=== PATIENT | male | born 1945 | race Caucasian/White ===

== ENCOUNTER → 2017-09-24 09:27 | Outpatient (CLI) | payer OTHER, SELFPAY ==
[2017-09-24 11:21] LABS: Prostate Specific Antigen < 0.064 ng/mL (0.10-4.00)
== END ==
PROVIDERS: Family Provider Family Medicine; PCP Family Medicine; Visit Provider Student in an Organized Health Care Education/Training Program
DX: C61 Malignant neoplasm of prostate (principal)
CPT/HCPCS: 36415; 84153

== ENCOUNTER → 2017-12-29 09:15 | Outpatient (CLI) | payer OTHER, SELFPAY ==
[2017-12-29 10:41] LABS: Prostate Specific Antigen < 0.064 ng/mL (0.10-4.00)
== END ==
PROVIDERS: PCP Family Medicine; Visit Provider Student in an Organized Health Care Education/Training Program
DX: C61 Malignant neoplasm of prostate (principal)
CPT/HCPCS: 36415; 84153

== ENCOUNTER → 2018-04-01 09:06 | Outpatient (CLI) | payer OTHER, SELFPAY ==
[2018-04-01 10:20] LABS: Prostate Specific Antigen < 0.064 ng/mL (0.10-4.00)
== END ==
PROVIDERS: Family Provider Student in an Organized Health Care Education/Training Program; PCP Student in an Organized Health Care Education/Training Program; Visit Provider Student in an Organized Health Care Education/Training Program
DX: C61 Malignant neoplasm of prostate (principal)
CPT/HCPCS: 36415; 84153

== ENCOUNTER 2018-05-06 11:55 | Day surgery (SDC) | payer OTHER, SELFPAY ==
[2018-05-04 11:55] VITALS: BMI 26.1
[2018-05-06 12:07] VITALS: BP 134/81; PULSE 71; RESP 16; TEMP 37.1; O2SAT 99; BMI 26.1
[2018-05-06] MEDS: LACTATED RINGERS 1,000 ML 42 ML IV (13:28)
[2018-05-06] MEDS: CEFAZOLIN 2 GM/100 ML FROZ.PIGGY IV (13:40)
--- NOTE | 2018-05-06 14:03 | SUR.OPER ---
Supine on padded OR bed, head on pillow, arms secured on padded arm boards at <90 degrees abduction, legs uncrossed, safety belt at thigh, tape over blanket over lower legs.
[2018-05-06] MEDS: LIDOCAINE 1% W/EPI INJ 20 ML INJ (14:17)
[2018-05-06] MEDS: BUPIVACAINE 0.5% (PF) VIAL 30 ML INJ (14:19)
[2018-05-06] MEDS: CEFAZOLIN 1 GM VIAL IV (14:23)
[2018-05-06 15:17] VITALS: BP 123/68; PULSE 77; RESP 14; TEMP 36.9; O2SAT 97
[2018-05-06 15:22] VITALS: BP 123/64; PULSE 74; RESP 20; TEMP 36.9; O2SAT 97
[2018-05-06 15:27] VITALS: BP 120/60; PULSE 73; RESP 16; TEMP 36.9; O2SAT 98
--- NOTE | 2018-05-06 15:29 | PM.OP.1 ---
Operative Date/Time/Diagnoses Date of procedure: 05/06/18 Time of procedure: 15:29 Pre-op diagnosis: Recurrent right inguinal hernia and new left inguinal hernia Post-op diagnosis: same Procedure & Clinicians Procedure: Repair of recurrent right inguinal hernia and new left inguinal hernia Same procedure as scheduled: Yes Surgeon: Marilu Campa Anesthesia Type: General (Dr. Hammer) and Local Operative Notes Findings: 1. Existing right inguinal hernia meshes densely adherent to and tangled with the right spermatic cord. It is loose laterally leaving a 1 cm opening through which he is herniating. 2. Moderate indirect inguinal hernia Closure Type: primary Implants & Drains: 1. Pro Loop plug in the right inguinal hernia 2. PHS hernia system implant-large size-in the left inguinal hernia Estimated Blood Loss (mL): 10 Procedure in detail: After obtaining informed consent, the patient brought to the operating room and placed in supine position on the operating table. Following successful induction of general endotracheal anesthesia, appropriate padding of all bony prominences, placement of appropriate monitors, the abdomen is prepped and draped in the standard surgical fashion a time-out was held per [facility] protocol. We began the procedure by addressing hernia on the right side. An ilioinguinal nerve block was undertaken 1st by injecting a mixture local anesthetics just medial to the anterior superior iliac spine. We then applied local anesthetic to the existing right lower quadrant incision. This was reopened and carried down through the skin and subcutaneous tissue to reveal the fascia of the external oblique aponeurosis. The aponeurosis was opened in the direction of its fibers revealing the underlying mesh and spermatic cord. The overlying leaflet of the mesh was densely adherent to the external oblique aponeurosis but not adherent to the underlying structures. It was actually stuck to only the lateral leaflet of the aponeurosis. Looking laterally into the inguinal canal at the internal ring, the plug placed 2 years ago was densely adherent to and intimately combined with the spermatic cord. It had come loose from its lateral attachment and was sort of bobbing up and down sewn medially only to the transversalis fascia. This left a and opening of approximately 1 cm laterally. I elected to not try to remove the mesh for fear of causing of the right testicle. I used a medium Prolene hernia System plug. It was soaked in Ancef containing solution and deployed into the defect. This plug was sewn into place to the existing plug and then laterally and inferiorly as well. The overlying leaflet of the existing mesh was then sewn to the transversalis fascia medially. The aponeurosis was then closed with running locking Vicryl suture. Rick's fascia was closed in the same manner and Monocryl was used in the skin. The wound was cleaned and then covered with Exofen. We now turned our attention to the left side. We began the procedure by infiltrating a mixture of local anesthetics medial to the anterior superior iliac spine on the left. Following this, an incision was fashioned in the left groin superior and lateral to the left pubic tubercle. This area was infiltrated with local anesthetic to create a field block. A skin incision was created here and carried down through the skin and subcutaneous tissue to reveal Rick's fascia below. Rick's fascia was divided sharply revealing the external oblique aponeurosis below. More local anesthetic was infiltrated in the aponeurosis and it was opened in the direction of its fibers. The spermatic cord and its contents were surrounded and retracted gently using a Tahir drain. The hernia sac was identified in the superior medial position and carefully dissected free from the cord structures. This was a sliding hernia. We elected to repair this hernia using the Prolene hernia system. A large portion of mesh was chosen and dipped in Ancef containing solution. This placed into the defect per manufacture's directions into the internal inguinal ring. The anterior leaflet was then opened and sewn to the pubic tubercle medially and tucked under the aponeurosis of the external oblique muscle laterally. The wound was then checked for hemostasis and irrigated with Ancef containing solution. The aponeurosis was then closed with running Vicryl suture Rick's fascia was closed Monocryl was placed in the skin. All sponge, needle, and instrument counts were correct at the conclusion the case. The patient was allowed to wake from anesthesia without difficulty and taken to the postanesthesia care unit in good condition.
[2018-05-06 15:32] VITALS: BP 116/71; PULSE 72; RESP 16; TEMP 36.9; O2SAT 98
[2018-05-06 16:00] VITALS: BP 122/65; PULSE 74; RESP 18; TEMP 36.6; O2SAT 96
== END 2018-05-06 16:05 | disposition home or self-care (01) ==
PROVIDERS: Family Provider Student in an Organized Health Care Education/Training Program; PCP Student in an Organized Health Care Education/Training Program; Visit Provider Surgery
PROC: (CPT 49520; principal; 2018-05-06 13:15)
DX: K40.91 Unilateral inguinal hernia, without obstruction or gangrene, recurrent (principal); K40.90 Unilateral inguinal hernia, without obstruction or gangrene, not specified as recurrent; E78.5 Hyperlipidemia, unspecified; I10 Essential (primary) hypertension
CPT/HCPCS: 49520; 49505; C1781; J0690; J2405; J2704; J3010

== ENCOUNTER → 2018-06-29 09:36 | Outpatient (CLI) | payer OTHER, SELFPAY ==
[2018-06-29 12:16] LABS: Prostate Specific Antigen < 0.064 ng/mL (0.10-4.00)
== END ==
PROVIDERS: Family Provider Student in an Organized Health Care Education/Training Program; PCP Student in an Organized Health Care Education/Training Program; Visit Provider Student in an Organized Health Care Education/Training Program
DX: C61 Malignant neoplasm of prostate (principal)
CPT/HCPCS: 84153

== ENCOUNTER → 2019-01-06 07:07 | Outpatient (CLI) | payer OTHER, SELFPAY ==
[2019-01-06 09:55] LABS: Prostate Specific Antigen < 0.064 ng/mL (0.10-4.00)
== END ==
PROVIDERS: Family Provider Student in an Organized Health Care Education/Training Program; PCP Student in an Organized Health Care Education/Training Program; Visit Provider Student in an Organized Health Care Education/Training Program
DX: C61 Malignant neoplasm of prostate (principal)
CPT/HCPCS: 36415; 84153

== ENCOUNTER → 2019-01-14 11:05 | Outpatient (CLI) | payer OTHER, SELFPAY ==
[2019-01-14 12:11] LABS: BUN Creatinine Ratio 18.9 (6-22); Blood Urea Nitrogen 17 mg/dL (9-20); Estimated Glomerular Filt Rate > 60.0 mL/min (>60)
== END ==
PROVIDERS: Family Provider Student in an Organized Health Care Education/Training Program; PCP Student in an Organized Health Care Education/Training Program; Visit Provider Student in an Organized Health Care Education/Training Program
DX: R31.0 Gross hematuria (principal)
CPT/HCPCS: 36415; 82565; 84520

== ENCOUNTER → 2019-01-15 13:04 | Outpatient (CLI) | payer OTHER, SELFPAY ==
--- NOTE | 2019-01-15 13:35 | DI.CT.S_ITS ---
PROCEDURE: CT ABDOMEN PELVIS WO/W CON INDICATIONS: hematuria TECHNIQUE: Optional 5 mm thick noncontrast images acquired from the diaphragm to the symphysis pubis. After the administration of intravenous contrast, 5 mm thick images acquired from the diaphragm to the symphysis pubis after a 10-minute delay. 2 mm thick coronal and sagittal reformats were then performed of the kidneys and ureters. For radiation dose reduction, the following was used: automated exposure control, adjustment of mA and/or kV according to patient size. COMPARISON: None. FINDINGS: Image quality: Excellent. Lung bases: Lung bases are clear. Heart size is normal. Urinary system: Punctate pair of left renal calculi measuring up to 1 mm. No right renal calculi identified. No perinephric fat stranding. There is normal bilateral renal enhancement. Renal calyces appear normal in morphology when filled with contrast. Opacified portions of both ureters demonstrate normal caliber. There is only partial contrast opacification of the bladder. No calcified bladder stones. Numerous bilateral pelvic phleboliths in the region of the distal ureters. Other solid organs: Scattered hepatic hypodensities, subcentimeter in size too small to characterize accurately although statistically represent cysts or hemangiomas. Gallbladder contains layering sub-5 mm gallstones without other CT evidence of acute cholecystitis. Biliary system is non dilated. Pancreas enhances normally. Spleen is normal in size and enhancement. No adrenal nodules. Peritoneum and bowel: Bowel loops demonstrate normal wall thickness and caliber. No free fluid or air. Colonic diverticulosis. Nodes and vessels: No retroperitoneal or mesenteric adenopathy by size criteria. Aorta and inferior vena cava are normal in size. Abdominal wall: No ventral hernias. Pelvis: No pathologic free pelvic fluid. No inguinal hernias or adenopathy. Bones: No suspicious bony lesions. No vertebral body compression fractures. Grade 1 anterolisthesis of L4 on L5. Mild anterior wedging of the midthoracic vertebral bodies IMPRESSION: Multiple punctate left renal calculi without evidence of urinary obstruction. No right urolithiasis. Cholelithiasis incidentally noted. Elsewhere, no acute process seen. Dictated by: Joel Downing M.D. on 01/15/2019 at 14:49 Approved by: Joel Downing M.D. on 01/15/2019 at 15:06
== END ==
PROVIDERS: Family Provider Student in an Organized Health Care Education/Training Program; PCP Student in an Organized Health Care Education/Training Program; Visit Provider Student in an Organized Health Care Education/Training Program
DX: R31.9 Hematuria, unspecified (principal); N20.0 Calculus of kidney; K80.20 Calculus of gallbladder without cholecystitis without obstruction
CPT/HCPCS: 74178; Q9967

== ENCOUNTER → 2019-04-22 09:48 | Outpatient (CLI) | payer OTHER, SELFPAY ==
[2019-04-24 12:40] LABS: Fecal Immunochemical Test NOT DETECTED (NOT DETECTED)
== END ==
PROVIDERS: PCP Student in an Organized Health Care Education/Training Program; Visit Provider Student in an Organized Health Care Education/Training Program
DX: Z12.11 Encounter for screening for malignant neoplasm of colon (principal); Z86.010 Personal history of colon polyps
CPT/HCPCS: 82274

== ENCOUNTER → 2019-06-24 10:32 | Outpatient (CLI) | payer OTHER, SELFPAY ==
[2019-06-28 15:34] LABS: PSA, Total < 0.1 ng/mL (< 4.1)
== END ==
PROVIDERS: PCP Student in an Organized Health Care Education/Training Program; Referring Provider Student in an Organized Health Care Education/Training Program; Visit Provider Student in an Organized Health Care Education/Training Program
DX: C61 Malignant neoplasm of prostate (principal)
CPT/HCPCS: 36415; 84153; 84154

== ENCOUNTER → 2019-10-25 11:02 | Outpatient (CLI) | payer OTHER, SELFPAY ==
--- NOTE | 2019-10-25 | DI.MRI.S_ITS ---
PROCEDURE: MR PELIS WO/W CON INDICATIONS: Malignant neoplasm of prostate, prior prostatectomy TECHNIQUE: Noncontrast coronal T1 spin echo and STIR, sagittal T1 spin echo with fat saturation and STIR, axial T1 spin echo and T2 fast spin echo with fat saturation. After the administration of contrast, axial/sagittal/coronal T1 spin echo with fat saturation through the pelvis. COMPARISON: [facility], CT, CT ABDOMEN PELVIS WO/W CON, 01/15/2019, 13:14. FINDINGS: Image quality: Excellent. Bones: The visualized bone marrow demonstrates normal signal on all sequences except at the medial left iliac bone posteriorly, abutting the sacroiliac joint, where an area of relatively sharply demarcated signal abnormality is seen measuring up to 1.5 cm transverse, 2.2 cm craniocaudad and approximately 2.1 cm AP. The this is worrisome for representing osseous metastatic disease. The overlying cortex appears intact. No abnormal intraosseous enhancement. Soft tissues: No soft tissue masses are visualized. The scanned muscles demonstrate normal overall bulk and internal signal. Subcutaneous tissues appear normal as well. No abnormal soft tissue enhancement. IMPRESSION: Prior prostatectomy. No adenopathy seen. Suspicious lesion measuring up to 1.5 x 2.2 x 2.1 cm within the medial aspect of the left iliac bone posteriorly, abutting the sacroiliac joint. Nuclear medicine bone scan is recommended if this has not recently been obtained. Dictated by: Chapin Krishnan M.D. on 10/25/2019 at 13:01 Approved by: Chapin Krishnan M.D. on 10/25/2019 at 13:25
== END ==
PROVIDERS: PCP Student in an Organized Health Care Education/Training Program; Referring Provider Student in an Organized Health Care Education/Training Program; Visit Provider Student in an Organized Health Care Education/Training Program
DX: C61 Malignant neoplasm of prostate (principal); M89.9 Disorder of bone, unspecified
CPT/HCPCS: 72197

== ENCOUNTER → 2019-11-11 10:01 | Outpatient (CLI) | payer OTHER, SELFPAY ==
--- NOTE | 2019-11-11 | DI.NM.S_ITS ---
PROCEDURE: NM BONE SCAN WHOLE BODY RADIOPHARMACEUTICAL: 21.5 mCi Tc-99m MDP IV. INDICATIONS: Malignant neoplasm of prostate TECHNIQUE: Delayed whole-body scintigrams were obtained approximately 3-4 hours after intravenous injection of radiotracer. Anterior and posterior views were acquired from vertex to feet. Additional left and right oblique views of the lower spine and pelvis were obtained. COMPARISON: [facility], MR, MR PELVIS WO/W CON, 10/25/2019, 11:25. [facility], CT, CT ABDOMEN PELVIS WO/W CON, 01/15/2019, 13:14. FINDINGS: The relatively subtle marrow space heterogeneity seen on recent MR scanning 10/25/19 within the pelvis is not detectable as a manifestation of abnormal bone scan isotope deposition, including targeted oblique imaging optimized for pelvis evaluation. Note is made of low cervical, thoracic, lumbosacral and bilateral sacroiliac joint degenerative osteoarthritic change. Note also is made of asymmetric right greater than left shoulder joint isotope deposition. 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 IMPRESSION: No active metastatic disease is currently found by bone scan imaging. Degenerative changes are present, as noted. Dictated by: Chapin Krishnan M.D. on 11/11/2019 at 15:12 Approved by: Chapin Krishnan M.D. on 11/11/2019 at 15:19
== END ==
PROVIDERS: PCP Student in an Organized Health Care Education/Training Program; Referring Provider Student in an Organized Health Care Education/Training Program; Visit Provider Student in an Organized Health Care Education/Training Program
DX: C61 Malignant neoplasm of prostate (principal); M16.0 Bilateral primary osteoarthritis of hip
CPT/HCPCS: 78306; A9503

== ENCOUNTER → 2020-02-15 07:43 | Outpatient (CLI) | payer OTHER, SELFPAY ==
[2020-02-15 10:02] LABS: Prostate Specific Antigen < 0.064 ng/mL (0.10-4.00)
== END ==
PROVIDERS: PCP Student in an Organized Health Care Education/Training Program; Referring Provider Student in an Organized Health Care Education/Training Program; Visit Provider Student in an Organized Health Care Education/Training Program
DX: C61 Malignant neoplasm of prostate (principal)
CPT/HCPCS: 36415; 84153

== ENCOUNTER → 2020-04-25 13:48 | Outpatient (CLI) | payer OTHER, SELFPAY ==
[2020-04-25 15:31] LABS: Alanine Aminotransferase 23 IU/L (<50); Albumin 3.9 g/dL (3.5-5.0); Albumin Globulin Ratio 1.6 (1.0-2.8); Alkaline Phosphatase 64 U/L (38-126); Aspartate Aminotransferase 34 IU/L (17-59); BUN Creatinine Ratio 21.2 (6-22); Bilirubin Total 0.3 mg/dL (0.2-1.3); Bilirubin Unconjugated 0.4 mg/dL (0.0-1.1); Blood Urea Nitrogen 18 mg/dL (9-20); Calcium 9.2 mg/dL (8.4-10.2); Carbon Dioxide 30 mmol/L (22-32); Chloride 105 mmol/L (98-107); Estimated Glomerular Filt Rate > 60.0 mL/min (>60); Globulin 2.4 g/dL (1.7-4.1); Glucose 88 mg/dL (80-110); HEMOLYSIS < 15 (0-50); Potassium 4.2 mmol/L (3.4-5.1); Sodium 139 mmol/L (137-145); Total Protein 6.3 g/dL (6.3-8.2)
== END ==
PROVIDERS: PCP Student in an Organized Health Care Education/Training Program; Referring Provider Student in an Organized Health Care Education/Training Program; Visit Provider Student in an Organized Health Care Education/Training Program
DX: E78.2 Mixed hyperlipidemia (principal); I10 Essential (primary) hypertension; Z79.899 Other long term (current) drug therapy
CPT/HCPCS: 36415; 80048; 80076

== ENCOUNTER → 2020-05-16 17:32 | Outpatient (CLI) | payer MEDICARE, SELFPAY ==
[2020-05-16] MEDS: COVID-19 VACC #1, MRNA(MOD) 100 MCG/0.5 ML VIAL IM (18:03)
== END ==
PROVIDERS: PCP Student in an Organized Health Care Education/Training Program; Visit Provider Internal Medicine
DX: Z23 Encounter for immunization (principal)
CPT/HCPCS: 0011A; 91301

== ENCOUNTER → 2020-06-14 12:23 | Outpatient (CLI) | payer MEDICARE, SELFPAY ==
[2020-06-14] MEDS: COVID-19 VACC #2, MRNA(MOD) 100 MCG/0.5 ML VIAL IM (12:33)
== END ==
PROVIDERS: PCP Student in an Organized Health Care Education/Training Program; Visit Provider Internal Medicine
DX: Z23 Encounter for immunization (principal)
CPT/HCPCS: 0012A; 91301

== ENCOUNTER → 2020-09-19 08:57 | Outpatient (CLI) | payer OTHER, SELFPAY ==
[2020-09-19 10:55] LABS: Prostate Specific Antigen < 0.064 ng/mL (0.10-4.00)
== END ==
PROVIDERS: PCP Student in an Organized Health Care Education/Training Program; Referring Provider Student in an Organized Health Care Education/Training Program; Visit Provider Student in an Organized Health Care Education/Training Program
DX: C61 Malignant neoplasm of prostate (principal)
CPT/HCPCS: 36415; 84153

== ENCOUNTER → 2021-04-23 07:03 | Outpatient (CLI) | payer OTHER, SELFPAY ==
[2021-04-23 09:53] LABS: Prostate Specific Antigen < 0.064 ng/mL (0.10-4.00)
== END ==
PROVIDERS: PCP Student in an Organized Health Care Education/Training Program; Referring Provider Student in an Organized Health Care Education/Training Program; Visit Provider Student in an Organized Health Care Education/Training Program
DX: C61 Malignant neoplasm of prostate (principal)
CPT/HCPCS: 36415; 84153

== ENCOUNTER → 2021-05-08 11:03 | Outpatient (CLI) | payer OTHER, SELFPAY ==
[2021-05-08 12:32] LABS: BUN Creatinine Ratio 16.7 (6-22); Blood Urea Nitrogen 16 mg/dL (9-20); Calcium 9.8 mg/dL (8.4-10.2); Carbon Dioxide 30 mmol/L (22-32); Chloride 103 mmol/L (98-107); Cholesterol 166 mg/dL (140-199); Estimated Glomerular Filt Rate > 60.0 mL/min (>60); Glucose 87 mg/dL (80-110); HDL Cholesterol 55 mg/dL (40-60); HEMOLYSIS < 15 (0-50); LDL Cholesterol Calculated 83 mg/dL (<100); Potassium 4.4 mmol/L (3.4-5.1); Sodium 141 mmol/L (137-145); Triglycerides 139 mg/dL (35-150)
[2021-05-08 15:09] LABS: Vitamin D 25 Hydroxy (D3) 43.4 ng/mL (30.0-100.0)
== END ==
PROVIDERS: PCP Student in an Organized Health Care Education/Training Program; Referring Provider Student in an Organized Health Care Education/Training Program; Visit Provider Student in an Organized Health Care Education/Training Program
DX: I10 Essential (primary) hypertension (principal); E78.2 Mixed hyperlipidemia
CPT/HCPCS: 36415; 80048; 80061; 82306

== ENCOUNTER → 2021-12-11 16:16 | Outpatient (CLI) | payer OTHER, SELFPAY ==
--- NOTE | 2021-12-11 16:19 | DI.RAD.S_ITS ---
PROCEDURE: XR LUMBAR SPINE 2-3V INDICATIONS: Low back pain TECHNIQUE: 3 views of the lumbar spine were acquired. COMPARISON: [facility], , L-SPINE 2-3 VIEWS, 02/09/2009, 10:37. FINDINGS: Bones: 5 [id number] vertebrae are present. 4 mm retrolisthesis L2-L3 and 4 mm spondylolisthesis L4-L5. Multilevel disc degeneration, moderate to severe at the L4-L5 and severe at the L5-S1 level. Moderate L4-L5 and L5-S1 facet joint arthropathy.. No vertebral body compression fractures. No suspicious bony lesions. Soft tissues: Overlying bowel gas pattern is normal. No suspicious soft tissue calcifications. IMPRESSION: Multilevel lumbar spine spondylosis which has progressed compared to the prior examination. Dictated by: Mike Kirby Amaya Interpreted: Dao Julian MD on 12/11/2021 at 17:03 Transcribed by: CARLOS on 12/11/2021 at 17:05 Approved by: Dao Julian M.D. on 12/11/2021 at 21:03
== END ==
PROVIDERS: PCP Student in an Organized Health Care Education/Training Program; Referring Provider Student in an Organized Health Care Education/Training Program; Visit Provider Student in an Organized Health Care Education/Training Program
DX: M47.816 Spondylosis without myelopathy or radiculopathy, lumbar region (principal); M47.817 Spondylosis without myelopathy or radiculopathy, lumbosacral region; M54.50 Low back pain, unspecified; G89.29 Other chronic pain
CPT/HCPCS: 72100

== ENCOUNTER 2022-02-01 14:30 | Outpatient (RCR) | payer OTHER, SELFPAY ==
--- NOTE | 2022-01-24 12:03 | PT.OIE ---
Current Diagnoses Other chronic pain (01/24/22) Low back pain, unspecified (01/24/22) Past Medical History (Last Reviewed 08/17/21 @ 11:42 by Deb Gonzalez PA-C) Arthritis Cataract Chicken pox Colon polyps Hayfever Hearing loss Hemorrhoids History of colonic polyps (02/14/15) History of inguinal hernia (08/13/16) Hyperlipidemia Hypertension IBS (irritable bowel syndrome) Measles Mumps Prostate cancer (05/30/17) Recurrent sinusitis Past Surgical History (Last Reviewed 08/17/21 @ 11:42 by Deb Gonzalez PA-C) Anesthesia History of colonoscopy (12/23/14) History of colonoscopy with polypectomy (09/22/09) History of prostate biopsy (05/30/17) History of right inguinal hernia repair (09/06/15) History of robot-assisted laparoscopic radical prostatectomy (08/12/17) History of tonsillectomy (~1949) Status post cataract extraction of both eyes with insertion of intraocular lens Status post eye surgery (~2009) Status post hemorrhoidectomy (1975) Visit Care Team Role Provider Type Sammy Erickson MD Attending Provider Physician Family Provider Primary Care Provider Referring Provider Specialty: Internal Medicine Address: [address] [place] [address], [address], [facility] Email: [email or web address] Physical Therapy Initial Evaluation PT-OP-A Visit Information Start: 01/24/22 11:25 Freq: Status: Active Protocol: Document 01/24/22 10:30 DCW (Rec: 01/24/22 11:37 DCW [id number]) Out-Patient Physical Therapy Visit Information Visit Information Visit Type Initial Evaluation Visit Start Time 10:30 Visit Stop Time 11:18 Total Visit Minutes 48 Visit Number 1 Number of SPECIALIST MANAGERS Visits 0 Evaluation Information Evaluation Date 01/24/22 PT-OP-B Current Condition Start: 01/24/22 11:25 Freq: Status: Active Protocol: Document 01/24/22 10:30 DCW (Rec: 01/24/22 11:50 DCW [id number]) Current Condition History of Current Condition Onset Date Several year history Current Complaints Constant low back pain, worse with lifting History of Current Condition Pt is a 77 year old male with a long-standing history of fairly constant low back pain. Pt reports he has aching daily, worse in the morning or after inactivity, feels better after getting up and moving around more. Is typically manageable, but will occasionally have instances where it is worse and he is unable to do much for a few days, the worst, and most recent example, being a few months ago when he purchased an inflatable kayak and was moving the 40 pound box around his garage. Ended up in enough pain that two weeks later he went to see his PCP. Received an x-ray and a referral to PT. Since that time, that specific pain has diminished, but he is still struggling with his normal pain. Reports left is typically worse than right, but it can change. No radicular pain into his hips or back. Does have a history of three hernias/repairs, which has limited his ability to strengthen his core in the past. Reports he walks 1.5-2 miles 5x/week, as well as an UE strengthening routine 3x/ week and balance training 3x/ week. Prior Treatments and Tests Lumbar x-ray: IMPRESSION: Multilevel lumbar spine spondylosis which has progressed compared to the prior examination. Dictated by: Mike Kirby [facility] Interpreted: Dao Julian MD on 12/11/2021 Treatment Goals Patient/Caregiver Goals To make this back pain go away. PT-OP-C Subjective Start: 01/24/22 11:25 Freq: Status: Active Protocol: Document 01/24/22 10:30 DCW (Rec: 01/24/22 11:50 DCW [id number]) OP-PT Subjective Patient Comments Patient Comments If I didn't wake up with pain , I'd assume I had . PT-OP-F Manual Assessment Start: 01/24/22 11:25 Freq: Status: Active Protocol: Document 01/24/22 10:30 DCW (Rec: 01/24/22 11:37 DCW [id number]) Manual Assessments Soft Tissue Assessment Soft Tissue Mobility Assessment Minimal soft tissue tone throughout lumbar back, no noted pain or discomfort with palpation PT-OP-K Range of Motion Start: 01/24/22 11:25 Freq: Status: Active Protocol: Document 01/24/22 10:30 DCW (Rec: 01/24/22 11:37 DCW [id number]) Lumbar Spine Range of Motion Lumbar Spine Active Degrees Testing Position Standing Flexion 43 Extension 5 Lateral Flexion Left 55 Lateral Flexion Right 55 ROM Limitations Pain Comments Lateral flexion measured in cm from fingertips to floor PT-OP-L Special Tests Start: 01/24/22 11:25 Freq: Status: Active Protocol: Document 01/24/22 10:30 DCW (Rec: 01/24/22 11:37 DCW [id number]) Special Tests Lumbar Spine Special Tests Vertical Spine Loading Test Results Negative MARY ANN Test Results Positive left ipsilateral pain Straight Leg Raise Test Results Positive left ipsilateral pain Standing Flexion Test Results Pain Slump Test Results Negative Compression Test Results Negative A-P Shearing Test Results Negative PT-OP-M Strength Start: 01/24/22 11:25 Freq: Status: Active Protocol: Document 01/24/22 10:30 DCW (Rec: 01/24/22 11:37 SCW [id number]) Trunk Strength Trunk Manual Muscle Testing Core Stabilization Good TrA contraction, fatigues quickly, difficulty keeping PPT position with SLR. 4-/5 Hip Strength Hip Manual Muscle Testing Right Flexion (L2) 5 Normal Extension (S1) 5 Normal Abduction 5 Normal Adduction 5 Normal External Rotation 5 Normal Internal Rotation 5 Normal Left Flexion (L2) 4 Good Extension (S1) 5 Normal Abduction 5 Normal Adduction 5 Normal External Rotation 5 Normal Internal Rotation 5 Normal Knee Strength Knee Manual Muscle Testing Right Flexion (S2) 5 Normal Extension (L3) 5 Normal Left Flexion (S2) 5 Normal Extension (L3) 5 Normal Ankle/Foot Strength Ankle and Foot Manual Muscle Testing Right Dorsiflexion (L4) 5 Normal Left Dorsiflexion (L4) 5 Normal PT-OP-Q Treatments Start: 01/24/22 11:25 Freq: Status: Active Protocol: Document 01/24/22 10:30 DCW (Rec: 01/24/22 11:37 SCW [id number]) Therapeutic Exercises Supine Exercises PPT Supine Exercise Name PPT /c TrA contraction: Isometric hold, Marching, SLR, Air Bicycle Comments HEP PT-OP-T Assessment and Plan Start: 01/24/22 11:25 Freq: Status: Active Protocol: Document 01/24/22 10:30 DCW (Rec: 01/24/22 12:03 DCW [id number]) Physical Therapy Assessment Rehab Potential Rehabilitation Potential Good Evaluation Complexity Number of Personal Factors/Comorbidities 1-2 Number of Body Systems Impaired 1-2 Clinical Presentation at Evaluation Unstable Impairments Impairments Functional Activities, Functional Mobility,Pain, Posture,Strength Goals Two Impairment Pt has episodes of severe LBP after attempting to move heavy items Chcf Goal (LTG) Pt to improve core strength to at least 4/5 and improve functional use of core muscles during bending and lifting in order to protect low back instability. LTG Duration 03/21/22 One Impairment Pt does not have an appropriate home exercise program Short Term Goal (STG) Pt to be independent and compliant with an appropriate HEP STG Duration 02/21/22 Assessment Summary Assessment Pt presents with signs and symptoms consistent with referring diagnosis of lumbar strain and DJD/DDD. Pt shows signs of lumbar instability, and x-ray notes worsening spondylosis. Pt has history of multiple hernias and repairs, which pt admits has limited ability for core strengthening in the past. Pt will likely benefit from skilled therapy focusing mainly on core strengthening, as well as training for body mechanics and posture with bending, lifting, and twisting activities. Physical Therapy Plan Frequency and Duration Frequency of Treatment 1-2x/week Duration of treatment (weeks) 8 Plan of Care Start Date 01/24/22 Plan of Care End Date 03/21/22 Therapeutic Interventions Therapeutic Interventions Aquatic Therapy,Balance Training,Home Exercise Program ,Manual Therapy,Patient/ Caregiver Education,Self-Care/ Home Management,Soft Tissue Mobilization,Therapeutic Activities,Therapeutic Exercises Modalities Cold Pack/Ice Massage,Electric Stimulation,Hot Packs, Ultrasound Next Visit Focus/Plan Next Note Type Treatment Note Next Visit Plan Core strengthening, Pallof press, T-ball exercises
--- NOTE | 2022-01-24 12:04 | PT.OPPOC ---
Physical, Occupational & Speech Therapy At [facility] Current Diagnoses Other chronic pain (01/24/22) Low back pain, unspecified (01/24/22) Visit Care Team Role Provider Type Sammy Erickson MD Attending Provider Physician Family Provider Primary Care Provider Referring Provider Specialty: Internal Medicine Address: [address] [place] [address], [facility] Email: [email or web address] Plan Of Care PT-OP-T Assessment and Plan Start: 01/24/22 11:25 Freq: Status: Active Protocol: Document 01/24/22 10:30 DCW (Rec: 01/24/22 12:03 DCW [id number]) Physical Therapy Assessment Rehab Potential Rehabilitation Potential Good Evaluation Complexity Number of Personal Factors/Comorbidities 1-2 Number of Body Systems Impaired 1-2 Clinical Presentation at Evaluation Unstable Impairments Impairments Functional Activities, Functional Mobility,Pain, Posture,Strength Goals Two Impairment Pt has episodes of severe LBP after attempting to move heavy items Contract Analyst Goal (LTG) Pt to improve core strength to at least 4/5 and improve functional use of core muscles during bending and lifting in order to protect low back instability. LTG Duration 03/21/22 One Impairment Pt does not have an appropriate home exercise program Short Term Goal (STG) Pt to be independent and compliant with an appropriate HEP STG Duration 02/21/22 Assessment Summary Assessment Pt presents with signs and symptoms consistent with referring diagnosis of lumbar strain and DJD/DDD. Pt shows signs of lumbar instability, and x-ray notes worsening spondylosis. Pt has history of multiple hernias and repairs, which pt admits has limited ability for core strengthening in the past. Pt will likely benefit from skilled therapy focusing mainly on core strengthening, as well as training for body mechanics and posture with bending, lifting, and twisting activities. Physical Therapy Plan Frequency and Duration Frequency of Treatment 1-2x/week Duration of treatment (weeks) 8 Plan of Care Start Date 01/24/22 Plan of Care End Date 03/21/22 Therapeutic Interventions Therapeutic Interventions Aquatic Therapy,Balance Training,Home Exercise Program ,Manual Therapy,Patient/ Caregiver Education,Self-Care/ Home Management,Soft Tissue Mobilization,Therapeutic Activities,Therapeutic Exercises Modalities Cold Pack/Ice Massage,Electric Stimulation,Hot Packs, Ultrasound Next Visit Focus/Plan Next Note Type Treatment Note Next Visit Plan Core strengthening, Pallof press, T-ball exercises Plan of Care Dates Plan of Care Start Date 01/24/22 Plan of Care End Date 03/21/22 Electronically Signed by: Ismael Aldana, PT 01/24/22 [id number] If you are in agreement with this Plan of Care, please return a signed and dated copy. I have reviewed this Plan of Care and certify that the skilled therapy services above are required to meet the patient?s needs. Physician Signature Date Printed Name and Credentials Clinical Instructor Signature Printed Name and Credentials
--- NOTE | 2022-01-30 15:17 | PT.OTN ---
Current Diagnoses Other chronic pain (01/30/22) Low back pain, unspecified (01/30/22) Physical Therapy Treatment Note PT-OP-A Visit Information Start: 01/24/22 11:25 Freq: Status: Active Protocol: Document 01/30/22 14:30 DCW (Rec: 01/30/22 15:17 DCW [id number]) Out-Patient Physical Therapy Visit Information Visit Information Visit Type Treatment Note Visit Start Time 14:30 Visit Stop Time 15:15 Total Visit Minutes 45 Visit Number 2 Number of BOOKS BINDER Visits 0 Evaluation Information Evaluation Date 01/24/22 PT-OP-B Current Condition Start: 01/24/22 11:25 Freq: Status: Active Protocol: Document 01/24/22 10:30 DCW (Rec: 01/24/22 11:50 DCW [id number]) Current Condition History of Current Condition Onset Date Several year history Current Complaints Constant low back pain, worse with lifting History of Current Condition Pt is a 77 year old male with a long-standing history of fairly constant low back pain. Pt reports he has aching daily, worse in the morning or after inactivity, feels better after getting up and moving around more. Is typically manageable, but will occasionally have instances where it is worse and he is unable to do much for a few days, the worst, and most recent example, being a few months ago when he purchased an inflatable kayak and was moving the 40 pound box around his garage. Ended up in enough pain that two weeks later he went to see his PCP. Received an x-ray and a referral to PT. Since that time, that specific pain has diminished, but he is still struggling with his normal pain. Reports left is typically worse than right, but it can change. No radicular pain into his hips or back. Does have a history of three hernias/repairs, which has limited his ability to strengthen his core in the past. Reports he walks 1.5-2 miles 5x/week, as well as an UE strengthening routine 3x/ week and balance training 3x/ week. Prior Treatments and Tests Lumbar x-ray: IMPRESSION: Multilevel lumbar spine spondylosis which has progressed compared to the prior examination. Dictated by: Mike LOREDO Interpreted: Dao Julian MD on 12/11/2021 Treatment Goals Patient/Caregiver Goals To make this back pain go away. PT-OP-C Subjective Start: 01/24/22 11:25 Freq: Status: Active Protocol: Document 01/30/22 14:30 DCW (Rec: 01/30/22 15:17 DCW [id number]) OP-PT Subjective Patient Comments Patient Comments Pt feels about the same. PT-OP-F Manual Assessment Start: 01/24/22 11:25 Freq: Status: Active Protocol: Document 01/24/22 10:30 DCW (Rec: 01/24/22 11:37 DCW [id number]) Manual Assessments Soft Tissue Assessment Soft Tissue Mobility Assessment Minimal soft tissue tone throughout lumbar back, no noted pain or discomfort with palpation PT-OP-K Range of Motion Start: 01/24/22 11:25 Freq: Status: Active Protocol: Document 01/24/22 10:30 DCW (Rec: 01/24/22 11:37 DCW [id number]) Lumbar Spine Range of Motion Lumbar Spine Active Degrees Testing Position Standing Flexion 43 Extension 5 Lateral Flexion Left 55 Lateral Flexion Right 55 ROM Limitations Pain Comments Lateral flexion measured in cm from fingertips to floor PT-OP-L Special Tests Start: 01/24/22 11:25 Freq: Status: Active Protocol: Document 01/24/22 10:30 DCW (Rec: 01/24/22 11:37 DCW [id number]) Special Tests Lumbar Spine Special Tests Vertical Spine Loading Test Results Negative MARY ANN Test Results Positive left ipsilateral pain Straight Leg Raise Test Results Positive left ipsilateral pain Standing Flexion Test Results Pain Slump Test Results Negative Compression Test Results Negative A-P Shearing Test Results Negative PT-OP-M Strength Start: 01/24/22 11:25 Freq: Status: Active Protocol: Document 01/24/22 10:30 DCW (Rec: 01/24/22 11:37 DCW [id number]) Trunk Strength Trunk Manual Muscle Testing Core Stabilization Good TrA contraction, fatigues quickly, difficulty keeping PPT position with SLR. 4-/5 Hip Strength Hip Manual Muscle Testing Right Flexion (L2) 5 Normal Extension (S1) 5 Normal Abduction 5 Normal Adduction 5 Normal External Rotation 5 Normal Internal Rotation 5 Normal Left Flexion (L2) 4 Good Extension (S1) 5 Normal Abduction 5 Normal Adduction 5 Normal External Rotation 5 Normal Internal Rotation 5 Normal Knee Strength Knee Manual Muscle Testing Right Flexion (S2) 5 Normal Extension (L3) 5 Normal Left Flexion (S2) 5 Normal Extension (L3) 5 Normal Ankle/Foot Strength Ankle and Foot Manual Muscle Testing Right Dorsiflexion (L4) 5 Normal Left Dorsiflexion (L4) 5 Normal PT-OP-Q Treatments Start: 01/24/22 11:25 Freq: Status: Active Protocol: Document 01/30/22 14:30 DCW (Rec: 01/30/22 15:17 DCW [id number]) Cardio Equipment Recumbent Elliptical (Biodex) Duration (Minutes) 4 Resistance 7 Seat Position 12 Gym Equipment Therapeutic Ball Bridging Exercise Details Bridging Ball Size/Color Red - 55 cm Body Position Supine LTR Exercise Details LTR Ball Size/Color Red - 55 cm Body Position Supine Resisted Trunk Rotation Exercise Details Resisted Trunk Rotation Ball Size/Color Green - 65 cm Lv 3 T-band Body Position Sitting Pelvic Tilts Exercise Details Pelvic tilts, circles Ball Size/Color Green - 65 cm Body Position Sitting Therapeutic Exercises Supine Exercises PPT Supine Exercise Name Air Bicycle Sidelying Exercises Reverse Clamshell Sidelying Exercise Name Reverse Clamshell Side bilateral Clamshell Sidelying Exercise Name Clamshell Side bilateral Open Book Sidelying Exercise Name Open Book Side bilateral Standing Exercises Pallof Press Standing Exercise Name Pallof Press Side bilateral Resistance Lv 4 PT-OP-T Assessment and Plan Start: 01/24/22 11:25 Freq: Status: Active Protocol: Document 01/30/22 14:30 DCW (Rec: 01/30/22 15:17 DCW [id number]) Physical Therapy Assessment Impairments Impairments Functional Activities, Functional Mobility,Pain, Posture,Strength Goals Two Impairment Pt has episodes of severe LBP after attempting to move heavy items Prison Goal (LTG) Pt to improve core strength to at least 4/5 and improve functional use of core muscles during bending and lifting in order to protect low back instability. LTG Duration 03/21/22 One Impairment Pt does not have an appropriate home exercise program Short Term Goal (STG) Pt to be independent and compliant with an appropriate HEP STG Duration 02/21/22 Assessment Summary Assessment Pt noting concern about co-pay , is leaning toward rejoining silver sneakers in order to work independently. Therapist and patient discussed, patient agreeable to one more visit to focus on a more specific HEP and then transition to independent exercise. Physical Therapy Plan Frequency and Duration Frequency of Treatment 1-2x/week Duration of treatment (weeks) 8 Plan of Care Start Date 01/24/22 Plan of Care End Date 03/21/22 Therapeutic Interventions Therapeutic Interventions Aquatic Therapy,Balance Training,Home Exercise Program ,Manual Therapy,Patient/ Caregiver Education,Self-Care/ Home Management,Soft Tissue Mobilization,Therapeutic Activities,Therapeutic Exercises Modalities Cold Pack/Ice Massage,Electric Stimulation,Hot Packs, Ultrasound Next Visit Focus/Plan Next Note Type Treatment Note Next Visit Plan Core strengthening, Pallof press, T-ball exercises
--- NOTE | 2022-02-01 15:12 | PT.OTN ---
Current Diagnoses Other chronic pain (02/01/22) Low back pain, unspecified (02/01/22) Physical Therapy Treatment Note PT-OP-A Visit Information Start: 01/24/22 11:25 Freq: Status: Active Protocol: Document 02/01/22 14:30 DCW (Rec: 02/01/22 15:12 DCW [id number]) Out-Patient Physical Therapy Visit Information Visit Information Visit Type Treatment Note Visit Start Time 14:30 Visit Stop Time 15:15 Total Visit Minutes 45 Visit Number 3 Number of CUPOLA TENDER HELPER Visits 0 Evaluation Information Evaluation Date 01/24/22 PT-OP-B Current Condition Start: 01/24/22 11:25 Freq: Status: Active Protocol: Document 01/24/22 10:30 DCW (Rec: 01/24/22 11:50 DCW [id number]) Current Condition History of Current Condition Onset Date Several year history Current Complaints Constant low back pain, worse with lifting History of Current Condition Pt is a 77 year old male with a long-standing history of fairly constant low back pain. Pt reports he has aching daily, worse in the morning or after inactivity, feels better after getting up and moving around more. Is typically manageable, but will occasionally have instances where it is worse and he is unable to do much for a few days, the worst, and most recent example, being a few months ago when he purchased an inflatable kayak and was moving the 40 pound box around his garage. Ended up in enough pain that two weeks later he went to see his PCP. Received an x-ray and a referral to PT. Since that time, that specific pain has diminished, but he is still struggling with his normal pain. Reports left is typically worse than right, but it can change. No radicular pain into his hips or back. Does have a history of three hernias/repairs, which has limited his ability to strengthen his core in the past. Reports he walks 1.5-2 miles 5x/week, as well as an UE strengthening routine 3x/ week and balance training 3x/ week. Prior Treatments and Tests Lumbar x-ray: IMPRESSION: Multilevel lumbar spine spondylosis which has progressed compared to the prior examination. Dictated by: Mike LOREDO Interpreted: Dao Julian MD on 12/11/2021 Treatment Goals Patient/Caregiver Goals To make this back pain go away. PT-OP-C Subjective Start: 01/24/22 11:25 Freq: Status: Active Protocol: Document 02/01/22 14:30 DCW (Rec: 02/01/22 15:12 DCW [id number]) OP-PT Subjective Patient Comments Patient Comments Pt reports his back felt fine following his last visit, there's no magic pill, I realize it's still going to hurt, but it didn't feel worse . PT-OP-F Manual Assessment Start: 01/24/22 11:25 Freq: Status: Active Protocol: Document 01/24/22 10:30 DCW (Rec: 01/24/22 11:37 DCW [id number]) Manual Assessments Soft Tissue Assessment Soft Tissue Mobility Assessment Minimal soft tissue tone throughout lumbar back, no noted pain or discomfort with palpation PT-OP-K Range of Motion Start: 01/24/22 11:25 Freq: Status: Active Protocol: Document 01/24/22 10:30 DCW (Rec: 01/24/22 11:37 DCW [id number]) Lumbar Spine Range of Motion Lumbar Spine Active Degrees Testing Position Standing Flexion 43 Extension 5 Lateral Flexion Left 55 Lateral Flexion Right 55 ROM Limitations Pain Comments Lateral flexion measured in cm from fingertips to floor PT-OP-L Special Tests Start: 01/24/22 11:25 Freq: Status: Active Protocol: Document 01/24/22 10:30 DCW (Rec: 01/24/22 11:37 DCW [id number]) Special Tests Lumbar Spine Special Tests Vertical Spine Loading Test Results Negative MARY ANN Test Results Positive left ipsilateral pain Straight Leg Raise Test Results Positive left ipsilateral pain Standing Flexion Test Results Pain Slump Test Results Negative Compression Test Results Negative A-P Shearing Test Results Negative PT-OP-M Strength Start: 01/24/22 11:25 Freq: Status: Active Protocol: Document 01/24/22 10:30 DCW (Rec: 01/24/22 11:37 DCW [id number]) Trunk Strength Trunk Manual Muscle Testing Core Stabilization Good TrA contraction, fatigues quickly, difficulty keeping PPT position with SLR. 4-/5 Hip Strength Hip Manual Muscle Testing Right Flexion (L2) 5 Normal Extension (S1) 5 Normal Abduction 5 Normal Adduction 5 Normal External Rotation 5 Normal Internal Rotation 5 Normal Left Flexion (L2) 4 Good Extension (S1) 5 Normal Abduction 5 Normal Adduction 5 Normal External Rotation 5 Normal Internal Rotation 5 Normal Knee Strength Knee Manual Muscle Testing Right Flexion (S2) 5 Normal Extension (L3) 5 Normal Left Flexion (S2) 5 Normal Extension (L3) 5 Normal Ankle/Foot Strength Ankle and Foot Manual Muscle Testing Right Dorsiflexion (L4) 5 Normal Left Dorsiflexion (L4) 5 Normal PT-OP-Q Treatments Start: 01/24/22 11:25 Freq: Status: Active Protocol: Document 02/01/22 14:30 DCW (Rec: 02/01/22 15:12 DCW [id number]) Cardio Equipment Recumbent Elliptical (Biodex) Duration (Minutes) 5 Resistance 7 Seat Position 12 Gym Equipment Therapeutic Ball Marching Exercise Details Marching Ball Size/Color Green - 65 cm Body Position Sitting Bridging Exercise Details Bridging Ball Size/Color Red - 55 cm Body Position Supine LTR Exercise Details LTR Ball Size/Color Red - 55 cm Body Position Supine Pelvic Tilts Exercise Details Pelvic tilts, circles Ball Size/Color Green - 65 cm Body Position Sitting Therapeutic Exercises Standing Exercises Pallof Press Standing Exercise Name Pallof Press Side bilateral Resistance Lv 4 Other Exercises Angry Cat Other Exercise Name Angry Cat Comments Quadruped Child's pose Other Exercise Name Child's pose Comments Quadruped Bird-Dog Other Exercise Name Bird-dog in Quadruped PT-OP-T Assessment and Plan Start: 01/24/22 11:25 Freq: Status: Active Protocol: Document 02/01/22 14:30 DCW (Rec: 02/01/22 15:12 DCW [id number]) Physical Therapy Assessment Impairments Impairments Functional Activities, Functional Mobility,Pain, Posture,Strength Goals Two Impairment Pt has episodes of severe LBP after attempting to move heavy items Director Of Labor And Delivery Goal (LTG) Pt to improve core strength to at least 4/5 and improve functional use of core muscles during bending and lifting in order to protect low back instability. LTG Duration 03/21/22 One Impairment Pt does not have an appropriate home exercise program Short Term Goal (STG) Pt to be independent and compliant with an appropriate HEP STG Duration 02/21/22 Assessment Summary Assessment Pt very happy with received HEP, feels he will do fine independently, and is requesting discharge at this time. Physical Therapy Plan Frequency and Duration Frequency of Treatment 1-2x/week Duration of treatment (weeks) 8 Plan of Care Start Date 01/24/22 Plan of Care End Date 03/21/22 Therapeutic Interventions Therapeutic Interventions Aquatic Therapy,Balance Training,Home Exercise Program ,Manual Therapy,Patient/ Caregiver Education,Self-Care/ Home Management,Soft Tissue Mobilization,Therapeutic Activities,Therapeutic Exercises Modalities Cold Pack/Ice Massage,Electric Stimulation,Hot Packs, Ultrasound Discharge Physical Therapy Discharge Reasons Patient Request Next Visit Focus/Plan Next Note Type Discharge Summary
== END 2022-02-05 12:27 | disposition home or self-care (01) ==
LOC: PHYS 14:30
PROVIDERS: Family Provider Student in an Organized Health Care Education/Training Program; PCP Student in an Organized Health Care Education/Training Program; Referring Provider Student in an Organized Health Care Education/Training Program; Visit Provider Student in an Organized Health Care Education/Training Program
DX: M54.50 Low back pain, unspecified (principal); G89.29 Other chronic pain
CPT/HCPCS: 97110; 97161

== ENCOUNTER → 2022-05-15 11:38 | Outpatient (CLI) | payer OTHER, SELFPAY ==
[2022-05-15 13:45] LABS: Prostate Specific Antigen < 0.064 ng/mL (0.10-4.00)
== END ==
PROVIDERS: Family Provider Student in an Organized Health Care Education/Training Program; PCP Student in an Organized Health Care Education/Training Program; Referring Provider Urology; Visit Provider Urology
DX: C61 Malignant neoplasm of prostate (principal)
CPT/HCPCS: 36415; 84153

== ENCOUNTER → 2022-06-21 12:09 | Outpatient (CLI) | payer OTHER, SELFPAY ==
[2022-06-21 13:41] LABS: BUN Creatinine Ratio 19.8 (6-22); Blood Urea Nitrogen 16 mg/dL (9-20); Calcium 8.8 mg/dL (8.4-10.2); Carbon Dioxide 32 mmol/L (22-32); Chloride 102 mmol/L (98-107); Estimated Glomerular Filt Rate > 60 mL/min (>60); Glucose 76 mg/dL (80-110); HEMOLYSIS < 15 (0-50); Potassium 4.2 mmol/L (3.4-5.1); Sodium 139 mmol/L (137-145)
[2022-06-24 16:31] LABS: Hep C Virus Ab w/Reflex Quant NEGATIVE s/c (NEGATIVE)
== END ==
PROVIDERS: Family Provider Student in an Organized Health Care Education/Training Program; PCP Student in an Organized Health Care Education/Training Program; Referring Provider Student in an Organized Health Care Education/Training Program; Visit Provider Student in an Organized Health Care Education/Training Program
DX: I10 Essential (primary) hypertension (principal); Z11.59 Encounter for screening for other viral diseases
CPT/HCPCS: 36415; 80048; 86803

== ENCOUNTER 2022-10-14 07:42 | Emergency (ER) | payer OTHER, SELFPAY ==
[2022-10-14 07:47] VITALS: BP 151/70; PULSE 87; RESP 16; TEMP 37.2; O2SAT 97; BMI 24.4
--- NOTE | 2022-10-14 08:01 | ED_ITS ---
HPI - General Adult General Chief complaint: Urogenital-Male Stated complaint: urinary problem Time Seen by Provider: 10/14/22 07:44 Source: patient Mode of arrival: Ambulatory Limitations: no limitations History of Present Illness HPI narrative: Patient is a 77-year-old male. Has a history of prostate cancer. Has had a radical prostatectomy. Is here for evaluation of several days of painful urination. He states things seemed to get worse last evening. He denies any fevers. He states he is emptying his bladder when he urinates. No blood in his urine but states that he has quite a bit of discomfort with urination. He had to urinate multiple times last night. He felt like he could urinate better when he was sitting rather than standing. Related Data Home Medications Medication Instructions Recorded Confirmed CA PANTOTHENATE/FOLIC ACID/VIT 1 tab PO QDAY ##0 10/12/10 06/20/22 (MULTIVITAMIN) CHONDROITIN SULFATE/GLUCOSAMIN 1 tab PO Q DAY ##0 10/12/10 06/20/22 (NICIL-[id number]) VITAMIN B COMPLEX (SUPER B COMPLEX) 1 cap PO Q DAY ##0 10/12/10 06/20/22 cholecalciferol (vitamin D3) 25 1,000 unit PO DAILY ##0 10/12/10 06/20/22 mcg (1,000 unit) capsule (Vitamin D3) desonide 0.05 % topical cream 1 applic topical DAILY 10/24/21 06/20/22 Previous Rx's Medication Instructions Recorded betamethasone dipropionate 0.05 % 1 applictn topical BID #15 grams 06/22/18 topical cream losartan 100 mg tablet 100 mg PO DAILY #90 tabs 06/13/22 simvastatin 80 mg tablet 80 mg PO BEDTIME #90 tabs 06/13/22 plecanatide 3 mg tablet (Trulance) 3 mg PO DAILY #90 tabs 07/19/22 phenazopyridine 100 mg tablet 100 mg PO TID PRN pain 6 doses #6 10/14/22 (Pyridium) tabs Allergies Allergy/AdvReac Type Severity Reaction Status Date / Time No Known Drug Allergies Allergy Verified 06/20/22 10:41 Review of Systems Constitutional Constitutional: Reports system reviewed and no additional complaints, except as documented Gastrointestinal Gastrointestinal: Reports system reviewed and no additional complaints, except as documented Genitourinary Genitourinary: Reports system reviewed and no additional complaints, except as documented Integumentary/Breasts Skin/Breast: Reports system reviewed and no additional complaints, except as documented Patient History Medical History Arthritis Cataract Chicken pox Colon polyps Hayfever Hearing loss Hemorrhoids History of colonic polyps (02/14/15) History of inguinal hernia (08/13/16) Hyperlipidemia Hypertension IBS (irritable bowel syndrome) Measles Mumps Prostate cancer (05/30/17) Recurrent sinusitis Surgical History Anesthesia History of colonoscopy (12/23/14) History of colonoscopy with polypectomy (09/22/09) History of prostate biopsy (05/30/17) History of right inguinal hernia repair (09/06/15) History of robot-assisted laparoscopic radical prostatectomy (08/12/17) History of tonsillectomy (~1949) Status post cataract extraction of both eyes with insertion of intraocular lens Status post eye surgery (~2009) Status post hemorrhoidectomy (1975) Family History Father Cancer determined by prostate biopsy Diabetes mellitus High cholesterol Brother No problems noted. Family/Other Stroke Heart attack Family/Other No problems noted. Grandfather No problems noted. Grandmother No problems noted. Mother Ovarian cancer Grandfather Accident Grandmother No problems noted. Sister Multiple sclerosis Social History marital status: household members: spouse Smoking Status: Never smoker alcohol intake: current substance use type: does not use Smoking Status: Never smoker Exam Initial Vital Signs Initial Vital Signs: Vital Signs Temperature 98.9 F 10/14/22 07:47 Pulse Rate 87 10/14/22 07:47 Respiratory Rate 16 10/14/22 07:47 Blood Pressure 151/70 H 10/14/22 07:47 Pulse Oximetry 97 10/14/22 07:47 Oxygen Delivery Method Room Air 10/14/22 07:47 Resp Effort & Inspection: normal respiratory effort Cardio Rate: regular rate GI Inspection: normal to inspection and non-distended Palpation: soft, No firm, No guarding and tender (Suprapubic region) Skin Other: Well-healed surgical scar consistent with his history of prostatectomy Neuro General: patient alert and patient awake Extrem General: normal to inspection and capillary refill normal Course Orders Ordered: ED Orders 10/14/22 07:55 Urine Microscopic Stat 10/14/22 08:03 CT kidney ureter bladder (KUB) Stat Vital Signs Vital signs: Vital Signs - 8 hr 10/14/22 07:47 Temperature 98.9 F Pulse Rate 87 Respiratory Rate 16 Blood Pressure 151/70 H Pulse Oximetry 97 Oxygen Delivery Method Room Air Medical Decision Making Lab Data Lab results reviewed: Yes I reviewed the patient's lab results. Labs: Lab Results 10/14/22 Range/Units 07:55 Urine RBC 5-10/hpf H (0-5/HPF) Urine WBC 0-1/hpf (0-5/HPF) Ur Squamous Epith Cells 0-1 /hpf (0-5/HPF) Urine Bacteria Occasional (0-1) (None) Ur Culture Indicated? Cult not indicated Urine Dip Bedside Urine Glucose Negative Bedside Urine Bilirubin - Negative Bedside Urine Ketone +/- 5 Urine Specific Danielson 1.015 Bedside Urine Occult Blood ++ Bedside Urine pH 7.0 Bedside Urine Protein +/- 15 Bedside Urine Urobilinogen - Negative Bedside Urine Nitrite - Negative Bedside Urine Leukocytes - Negative Esterase Point of care testing: Urine Dip Bedside Urine Glucose Negative Bedside Urine Bilirubin - Negative Bedside Urine Ketone +/- 5 Urine Specific Danielson 1.015 Bedside Urine Occult Blood ++ Bedside Urine pH 7.0 Bedside Urine Protein +/- 15 Bedside Urine Urobilinogen - Negative Bedside Urine Nitrite - Negative Bedside Urine Leukocytes - Negative Esterase Imaging Data CT scan - abdomen/pelvis: Radiologist's Impression: PROCEDURE:? CT KIDNEY URETER BLADDER (KUB) ? INDICATIONS:? Hematuria, painful urination, ? TECHNIQUE:? Axial sections were acquired from the lung bases to the pubic symphysis.? Coronal and sagittal reformats were performed.? For radiation dose reduction, the following was used: ?automated exposure control, adjustment of mA and/or kV according to patient size.? ? COMPARISON:? [facility], CT, CT ABDOMEN PELVIS WO/W CON, 01/15/2019, 13:14. ? FINDINGS:? Image quality:? Excellent.? ? Lung bases:? Unremarkable.? ? Heart:? No significant findings. ? URINARY: Right Kidney:? Very faint calyceal region calcifications may represent renal tubular acidosis.? No measurable stone.? No hydronephrosis.? Right Ureter:? No hydroureter.? ? Left Kidney:? There is a 1 mm stone in the middle pole.? There are very faint calyceal region calcifications suggesting renal tubular acidosis.? No hydronephrosis.? Left Ureter:? No hydroureter.? ? Bladder:? Normal wall thickness. No stones. ? ? ? ABDOMEN: Liver:? Unremarkable.? ? Gallbladder:? Multiple tiny layering calcified gallstones.? Mild gallbladder wall thickening and mild gallbladder distention. ? Biliary ducts:? Unremarkable.? ? Pancreas:? Unremarkable.? ? Spleen:? Unremarkable.? ? Adrenal Glands:? Unremarkable.? ? ? Stomach and Bowel:? Question mild ileus pattern. ? Peritoneum:? No abnormal intraperitoneal fluid.? No free air.? ? Ventral Wall: ? No hernia.? Abdominal Nodes:? No enlarged retroperitoneal or mesenteric lymph nodes.? Vessels:? Aorta and inferior vena cava are normal in size.? ? PELVIS: Pelvic Organs:? Unremarkable.? ? Pelvic Nodes: Unremarkable. Miscellaneous: No inguinal hernias are seen. ? ? ? Bones:? Lumbar degenerative change.? No lytic or blastic bony lesions.? No co mpression fractures. ? ? IMPRESSION:? ? 1. Renal findings suggest probable renal tubular acidosis.? There is a 1 mm left middle pole stone, as well.? There is no hydronephrosis. ? 2. Gallbladder has multiple small layering gallstones, a degree of distension, and mild gallbladder wall thickening. ? 3. Question mild ileus pattern.? ? Comment:? If clinically suspect acute cholecystitis, consider right upper quadrant ultrasound.? [facility] Narrative Medical decision making narrative: Patient does have a benign exam. No indication of a urinary tract infection. He does have hematuria. He is had no recent illnesses to include fevers or sore throats. He is no testicular pain. He is not retaining urine. His CT scan does not show any signs of ureteral stones. I suspect that the hematuria is the cause of his discomfort and urgency and frequency and hesitancy however I am unsure as what the source of the hematuria would be. Potentially it is something like renal tubular acidosis as mentioned on the CT scan. He does not have any right upper quadrant abdominal pain. Patient does require follow-up with urology. He was given return precautions and follow-up instructions. He expressed understanding and agreement with plan. Discharge Plan Departure Patient Disposition: Home Clinical Impression: Hematuria Instructions: DI for Hematuria Activity Restrictions/Additional Instructions: I recommend that you continue to take all of your medications as directed. Be sure that you were increasing your fluid intake. You do require follow-up with Urology. You can contact them with the number provided below for a follow-up. Return to the emergency department for new or worsening symptoms. Prescriptions: New phenazopyridine [Pyridium] 100 mg tablet 100 mg PO TID PRN (Reason: pain) Qty: 6 0RF No Action CA PANTOTHENATE/FOLIC ACID/VIT (MULTIVITAMIN) 1 tab PO QDAY Qty: 0 cholecalciferol (vitamin D3) [Vitamin D3] 1,000 unit Capsule 1,000 unit PO DAILY Qty: 0 CHONDROITIN SULFATE/GLUCOSAMIN ([id number]) 1 tab PO Q DAY Qty: 0 VITAMIN B COMPLEX (SUPER B COMPLEX) 1 cap PO Q DAY Qty: 0 betamethasone dipropionate 0.05 % cream 1 applictn TOP BID Qty: 15 1RF Rx Instructions: Apply twice daily to the affected areas until clear. losartan 100 mg tablet 100 mg PO DAILY Qty: 90 1RF Rx Instructions: PATIENT DUE FOR ANNUAL VISIT W/PCP. PLEASE CALL TO SCHEDULE. THANK YOU 06/13/22. simvastatin 80 mg tablet 80 mg PO BEDTIME Qty: 90 1RF Rx Instructions: PATIENT DUE FOR ANNUAL VISIT W/PCP. PLEASE CALL TO SCHEDULE. THANK YOU 06/13/22. Trulance 3 mg tablet 3 mg PO DAILY Qty: 90 1RF desonide 0.05 % cream 1 applic topical DAILY Referrals: Sammy Erickson MD [Primary Care Provider] - Adonay Hoyos MD [Physician] - Stand Alone Forms: Patient Portal/API
--- NOTE | 2022-10-14 08:03 | DI.CT.S_ITS ---
PROCEDURE: CT KIDNEY URETER BLADDER (KUB) INDICATIONS: Hematuria, painful urination, TECHNIQUE: Axial sections were acquired from the lung bases to the pubic symphysis. Coronal and sagittal reformats were performed. For radiation dose reduction, the following was used: automated exposure control, adjustment of mA and/or kV according to patient size. COMPARISON: [facility], CT, CT ABDOMEN PELVIS WO/W CON, 01/15/2019, 13:14. FINDINGS: Image quality: Excellent. Lung bases: Unremarkable. Heart: No significant findings. URINARY: Right Kidney: Very faint calyceal region calcifications may represent renal tubular acidosis. No measurable stone. No hydronephrosis. Right Ureter: No hydroureter. Left Kidney: There is a 1 mm stone in the middle pole. There are very faint calyceal region calcifications suggesting renal tubular acidosis. No hydronephrosis. Left Ureter: No hydroureter. Bladder: Normal wall thickness. No stones. ABDOMEN: Liver: Unremarkable. Gallbladder: Multiple tiny layering calcified gallstones. Mild gallbladder wall thickening and mild gallbladder distention. Biliary ducts: Unremarkable. Pancreas: Unremarkable. Spleen: Unremarkable. Adrenal Glands: Unremarkable. Stomach and Bowel: Question mild ileus pattern. Peritoneum: No abnormal intraperitoneal fluid. No free air. Ventral Wall: No hernia. Abdominal Nodes: No enlarged retroperitoneal or mesenteric lymph nodes. Vessels: Aorta and inferior vena cava are normal in size. PELVIS: Pelvic Organs: Unremarkable. Pelvic Nodes: Unremarkable. Miscellaneous: No inguinal hernias are seen. Bones: Lumbar degenerative change. No lytic or blastic bony lesions. No compression fractures. IMPRESSION: 1. Renal findings suggest probable renal tubular acidosis. There is a 1 mm left middle pole stone, as well. There is no hydronephrosis. 2. Gallbladder has multiple small layering gallstones, a degree of distension, and mild gallbladder wall thickening. 3. Question mild ileus pattern. Comment: If clinically suspect acute cholecystitis, consider right upper quadrant ultrasound. Dictated by: Man Ochoa M.D. on 10/14/2022 at 8:20 Approved by: Man Ochoa M.D. on 10/14/2022 at 8:26
[2022-10-14 08:49] LABS: RBC Urine 5-10/HPF (0-5/HPF)
[2022-10-14 08:50] LABS: Bacteria Urine Occasional (0-1); Culture Indicated Urine Cult Not Indicated; Squamous Epithelial Cell Urine 0-1 /HPF (0-5/HPF); WBC Urine 0-1/HPF (0-5/HPF)
== END 2022-10-14 09:44 | disposition home or self-care (01) ==
PROVIDERS: Emergency Provider Emergency Medicine; Family Provider Student in an Organized Health Care Education/Training Program; PCP Student in an Organized Health Care Education/Training Program
DX: R31.9 Hematuria, unspecified (principal)
CPT/HCPCS: 51798; 74176; 81003; 81015; 93010; 99283

== ENCOUNTER 2022-10-15 17:46 | Inpatient (IN) | payer OTHER, SELFPAY ==
[2022-10-15] VITALS (17 sets, daily range): BP systolic 119–155; BP diastolic 58–87; PULSE 78–100; RESP 14–20; TEMP 37.4; O2SAT 95–99; BMI 24.4
--- NOTE | 2022-10-15 17:51 | DI.RAD.S_ITS ---
PROCEDURE: XR CHEST 1V INDICATIONS: chest pain TECHNIQUE: One view of the chest was acquired. COMPARISON: None. FINDINGS: Surgical changes and devices: None. Lungs and pleura: Lungs are clear. No pleural effusions or pneumothorax. Mediastinum: Mediastinal contours appear normal. Heart size is normal. Bones and chest wall: No suspicious bony lesions. Overlying soft tissues appear unremarkable. IMPRESSION: No acute cardiopulmonary disease. Dictated by: Chava Li M.D. on 10/15/2022 at 18:33 Approved by: Chava Li M.D. on 10/15/2022 at 18:33
[2022-10-15 18:00] LABS: Add Manual Diff / Slide Review NO; Basophils Absolute Auto 100 /uL (0-100); Basophils Percent Auto 0.4 % (0-2); Eosinophils Absolute Auto 0 /uL (0-450); Hematocrit 43.1 % (41-53); Hemoglobin 14.5 g/dL (13.5-17.5); Lymphocytes Absolute Auto 1300 /uL (1100-4500); Lymphocytes Percent Auto 9.2 % (25-40); Mean Corpuscular HGB Conc 33.5 % (30-36); Mean Corpuscular Hemoglobin 30.7 PG (26-34); Mean Corpuscular Volume 91.8 fL (80-100); Monocytes Absolute Auto 1000 /uL (0-900); Monocytes Percent Auto 7.1 % (3-14); Neutrophils Absolute Auto 11800 /uL (1500-7000); Neutrophils Percent Auto 83.3 % (50-75); Platelet Count 235 X10^3/uL (150-400); Red Cell Distribution Width 12.6 % (11.6-14.8); White Blood Cell Count 14.2 X10^3/uL (4.5-11.0)
[2022-10-15 18:04] LABS: INR 1.2 (0.9-1.3); Prothrombin Time 13.2 SECONDS (10.1-12.7)
[2022-10-15 18:07] LABS: PTT Partial Thromboplastin Tim 37 SECONDS (26-36)
[2022-10-15 18:21] LABS: Alanine Aminotransferase 18 IU/L (<50); Albumin 4.3 g/dL (3.5-5.0); Albumin Globulin Ratio 1.2 (1.0-2.8); Alkaline Phosphatase 106 U/L (38-126); Aspartate Aminotransferase 24 IU/L (17-59); BUN Creatinine Ratio 19.6 (6-22); Bilirubin Total 1.1 mg/dL (0.2-1.3); Blood Urea Nitrogen 20 mg/dL (9-20); Calcium 9.6 mg/dL (8.4-10.2); Carbon Dioxide 25 mmol/L (22-32); Chloride 97 mmol/L (98-107); Creatine Kinase 141 U/L (55-170); Estimated Glomerular Filt Rate > 60 mL/min (>60); Globulin 3.6 g/dL (1.7-4.1); Glucose 151 mg/dL (80-110); HEMOLYSIS < 15 (0-50); Lipase 29 U/L (23-300); Potassium 3.8 mmol/L (3.4-5.1); Sodium 134 mmol/L (137-145); Total Protein 7.9 g/dL (6.3-8.2)
[2022-10-15 18:32] LABS: Troponin I 0.015 ng/mL (0.01-0.034)
--- NOTE | 2022-10-15 18:34 | DI.US.S_ITS ---
PROCEDURE: US ABDOMEN LIMITED INDICATIONS: PAIN TECHNIQUE: Real-time focused scanning was performed of the abdomen, with image documentation. COMPARISON: [facility], CT, CT KIDNEY URETER BLADDER (KUB), 10/14/2022, 8:10. FINDINGS: Liver measures 15.0 cm. There is focus of decreased echogenicity within the right lobe measuring 13 x 14 x 12 mm consistent with simple cysts. Gallbladder demonstrates multiple mobile foci of echogenicity. Wall thickness is normal measuring 1.8 mm. Common bile duct measures 4.7 mm. Incidental note of mildly prominent bowel within the left and right hemiabdomen. IMPRESSION: Cholelithiasis without imaging evidence cholecystitis. Mildly prominent partially visualized loops of bowel not seen in since higher D. It is noted that ileus pattern was identified on CT abdomen pelvis of 10/14/2022. Dictated by: Ana Roman M.D. on 10/15/2022 at 21:58 Approved by: Ana Roman M.D. on 10/15/2022 at 21:59
--- NOTE | 2022-10-15 18:34 | ED.SYNCOPE ---
HPI - Syncope General Chief Complaint: Syncope Stated Complaint: Syncope,fell in shower,+LOC Time Seen by Provider: 10/15/22 18:09 Source: patient and EMS Mode of arrival: EMS Limitations: no limitations History of Present Illness HPI narrative: 77M nonsmoker with history of HTN, IBS, hyperlipidemia, prostate CA s/p radical prostatectomy presents by EMS for evaluation of a near syncopal episode while in the shower. Patient was seen and evaluated yesterday and had sharp pain with urination and hematuria with reassuring labs and largely unremarkable imaging. He was discharged home and given return precautions. He states that over the course of the day he is had increasing severity of pain and in a different location than what he was seen for yesterday. He states that his pain is much more intense and he has a poor appetite. He has been nauseated but denies any vomiting. He states that his pain seems to be worse when he moves and improves with rest but there are some episodes where it seems to improve with a mind of its own. He denies any obvious change in his bowel habits. He states that he was taking a shower and began to feel a bit lightheaded and flushed and started to ease himself so the ground and thinks he probably did not completely lose consciousness but was close and had a rapid improvement. Related Data Home Medications Medication Instructions Recorded Confirmed CA PANTOTHENATE/FOLIC ACID/VIT 1 tab PO QDAY ##0 10/12/10 06/20/22 (MULTIVITAMIN) CHONDROITIN SULFATE/GLUCOSAMIN 1 tab PO Q DAY ##0 10/12/10 06/20/22 ([id number]) VITAMIN B COMPLEX (SUPER B COMPLEX) 1 cap PO Q DAY ##0 10/12/10 06/20/22 cholecalciferol (vitamin D3) 25 1,000 unit PO DAILY ##0 10/12/10 06/20/22 mcg (1,000 unit) capsule (Vitamin D3) desonide 0.05 % topical cream 1 applic topical DAILY 10/24/21 06/20/22 Previous Rx's Medication Instructions Recorded betamethasone dipropionate 0.05 % 1 applictn topical BID #15 grams 06/22/18 topical cream losartan 100 mg tablet 100 mg PO DAILY #90 tabs 06/13/22 simvastatin 80 mg tablet 80 mg PO BEDTIME #90 tabs 06/13/22 plecanatide 3 mg tablet (Trulance) 3 mg PO DAILY #90 tabs 07/19/22 phenazopyridine 100 mg tablet 100 mg PO TID PRN pain 6 doses #6 10/15/22 (Pyridium) tabs Allergies Allergy/AdvReac Type Severity Reaction Status Date / Time No Known Drug Allergies Allergy Verified 06/20/22 10:41 Review of Systems Review of Systems Narrative: GENERAL: Denies chills, fatigue, malaise, fever, sweats. HEENT: Denies sinus pain, ear pain, sore throat, difficulty swallowing, dizziness. RESPIRATORY: Denies dyspnea, cough, wheezing, hemoptysis, sputum. CARDIOVASCULAR: Denies chest pain, palpitations, orthopnea, edema, GASTROINTESTINAL: See HPI : Denies dysuria, frequency, incontinence, hematuria, urinary retention. MUSCULOSKELETAL: denies weakness, joint pain, or bony pain SKIN: Denies rash, skin lesions, or other NEUROLOGIC: Denies weakness, headache, numbness, change in speech, confusion, seizures, incoordination. PSYCHIATRIC: No concerning psychosocial issues. 12 point review of systems is negative except for those stated above Patient History Medical History Arthritis Cataract Chicken pox Colon polyps Hayfever Hearing loss Hemorrhoids History of colonic polyps (02/14/15) History of inguinal hernia (08/13/16) Hyperlipidemia Hypertension IBS (irritable bowel syndrome) Measles Mumps Prostate cancer (05/30/17) Recurrent sinusitis Surgical History Anesthesia History of colonoscopy (12/23/14) History of colonoscopy with polypectomy (09/22/09) History of prostate biopsy (05/30/17) History of right inguinal hernia repair (09/06/15) History of robot-assisted laparoscopic radical prostatectomy (08/12/17) History of tonsillectomy (~1949) Status post cataract extraction of both eyes with insertion of intraocular lens Status post eye surgery (~2009) Status post hemorrhoidectomy (1975) Family History Father Cancer determined by prostate biopsy Diabetes mellitus High cholesterol Brother No problems noted. Family/Other Stroke Heart attack Family/Other No problems noted. Grandfather No problems noted. Grandmother No problems noted. Mother Ovarian cancer Grandfather Accident Grandmother No problems noted. Sister Multiple sclerosis Social History marital status: household members: spouse Smoking Status: Never smoker alcohol intake: current substance use type: does not use Smoking Status: Never smoker alcohol intake frequency: holidays/special occasions only Substance Use Type: does not use Exam Narrative Exam Narrative: GENERAL: [77] year old patient appears stated age. Well-developed patient, in mild distress. HEAD: Atraumatic. Normocephalic. EYES: Pupils equal round and reactive. Extraocular motions intact. No scleral icterus. No injection or drainage. ENT: Nose without bleeding, purulent drainage. Throat without erythema, tonsillar hypertrophy or exudate. Airway patent. NECK: Trachea midline. Non tender CARDIOVASCULAR: Regular rate and rhythm without murmurs, gallops, or rubs. RESPIRATORY: Clear to auscultation. Breath sounds equal bilaterally. No wheezes, rales, or rhonchi. GASTROINTESTINAL: Abdomen soft, significantly tender in the LLQ with local peritoneal signs, voluntary guarding, nondistended. Bowel sounds present, but decreased. Mild RUQ pain, no classic for GB/pancreatitis EXTREMITIES: No edema or joint tenderness. BACK: Nontender without deformity or crepitance. No flank tenderness. NEURO: AOx3. SKIN: No rash or erythema of visible areas Initial Vital Signs Initial Vital Signs: Vital Signs Pulse Rate 90 10/15/22 17:49 Pulse Oximetry 97 10/15/22 17:49 Course Orders Ordered: ED Orders 10/15/22 18:34 US abdomen limited Stat 10/15/22 22:48 CT abdomen pelvis w con Stat 10/16/22 02:05 Complete Blood Count AUTO DIFF Stat Comprehensive Metabolic Panel Stat Lactate (Lactic Acid) Stat Discontinued Medications Sodium Chloride (Normal Saline 0.9%) 1,000 mls @ 1,000 mls/hr IV BOLUS ONE Stop: 10/15/22 19:33 Last Infusion: 10/15/22 19:32 Dose: 0 mls/hr Documented By: Admin: 10/15/22 18:48 Dose: 1,000 mls/hr Documented By: ELIAZAR Sodium Chloride (Normal Saline 0.9%) 1,000 mls @ 1,000 mls/hr IV BOLUS ONE Stop: 10/15/22 21:28 Last Infusion: 10/15/22 22:16 Dose: 0 mls/hr Documented By: Admin: 10/15/22 21:03 Dose: 1,000 mls/hr Documented By: YODIT Piperacillin Sod/Tazobactam (Sod 4.5 gm/ Sodium Chloride) 100 mls @ 200 mls/hr IV NOW ONE Stop: 10/15/22 23:54 Last Infusion: 10/16/22 00:38 Dose: 0 mls/hr Documented By: Admin: 10/16/22 00:04 Dose: 200 mls/hr Documented By: YODIT Consultations Consultation #1: discussed with radiology (Dr. Roman) she is concerned of interval change between yesterday and today imaging and questions evolving SBO vs. infectious process Consultation #2: discussed with Dr. Guerra. We have reviewed clinical course and she has seen imaging herself. After discussion we elect to repeat labs and if unchanged or improved he can be admitted, if worse he will likely go to the OR Vital Signs Vital signs: Vital Signs - 8 hr 10/15/22 19:30 10/15/22 19:30 10/15/22 20:00 Pulse Rate 82 Pulse Rate [Orthostatic Lying] Pulse Rate [Orthostatic Sitting] Pulse Rate [Orthostatic Standing] Respiratory Rate 15 Blood Pressure 141/86 H 133/76 Blood Pressure [Orthostatic Lying] Blood Pressure [Orthostatic Sitting] Blood Pressure [Orthostatic Standing] Pulse Oximetry 98 Oxygen Delivery Method Room Air 10/15/22 20:00 10/15/22 20:30 10/15/22 20:30 Pulse Rate 79 81 Pulse Rate [Orthostatic Lying] Pulse Rate [Orthostatic Sitting] Pulse Rate [Orthostatic Standing] Respiratory Rate 19 18 Blood Pressure 135/87 Blood Pressure [Orthostatic Lying] Blood Pressure [Orthostatic Sitting] Blood Pressure [Orthostatic Standing] Pulse Oximetry 96 96 Oxygen Delivery Method Room Air Room Air 10/15/22 22:59 10/15/22 23:12 10/15/22 22:00 Pulse Rate 100 H 78 Pulse Rate [Orthostatic Lying] 80 Pulse Rate [Orthostatic Sitting] 84 Pulse Rate [Orthostatic Standing] 93 H Respiratory Rate 14 Blood Pressure 142/72 H Blood Pressure [Orthostatic Lying] 146/75 H Blood Pressure [Orthostatic Sitting] 143/80 H Blood Pressure [Orthostatic Standing] 141/79 H Pulse Oximetry 97 97 Oxygen Delivery Method Room Air 10/15/22 22:30 10/15/22 22:55 10/15/22 23:00 Pulse Rate 80 83 80 Pulse Rate [Orthostatic Lying] Pulse Rate [Orthostatic Sitting] Pulse Rate [Orthostatic Standing] Respiratory Rate 16 20 14 Blood Pressure 143/75 H 143/81 H 147/70 H Blood Pressure [Orthostatic Lying] Blood Pressure [Orthostatic Sitting] Blood Pressure [Orthostatic Standing] Pulse Oximetry 96 96 96 Oxygen Delivery Method Room Air Room Air Room Air 10/15/22 23:20 10/15/22 23:30 10/16/22 00:00 Pulse Rate 80 82 81 Pulse Rate [Orthostatic Lying] Pulse Rate [Orthostatic Sitting] Pulse Rate [Orthostatic Standing] Respiratory Rate 19 14 20 Blood Pressure 155/74 H 119/58 L 149/73 H Blood Pressure [Orthostatic Lying] Blood Pressure [Orthostatic Sitting] Blood Pressure [Orthostatic Standing] Pulse Oximetry 99 95 95 Oxygen Delivery Method Room Air Room Air Room Air 10/16/22 00:30 10/16/22 01:00 10/16/22 01:30 Pulse Rate 79 80 77 Pulse Rate [Orthostatic Lying] Pulse Rate [Orthostatic Sitting] Pulse Rate [Orthostatic Standing] Respiratory Rate 20 12 15 Blood Pressure 128/70 133/68 135/67 Blood Pressure [Orthostatic Lying] Blood Pressure [Orthostatic Sitting] Blood Pressure [Orthostatic Standing] Pulse Oximetry 95 94 96 Oxygen Delivery Method Room Air Room Air Room Air MDM - Syncope Lab Data 10/16/22 02:05 10/16/22 02:05 Labs: Lab Results 10/15/22 10/15/22 10/15/22 Range/Units 17:45 17:45 17:45 WBC 14.2 H (4.5-11.0) X10^3/uL RBC 4.70 (4.5-5.9) X10^6/uL Hgb 14.5 (13.5-17.5) g/dL Hct 43.1 (41-53) % MCV 91.8 (80-100) fL MCH 30.7 (26-34) PG MCHC 33.5 (30-36) % RDW 12.6 (11.6-14.8) % Plt Count 235 (150-400) X10^3/uL Neut % (Auto) 83.3 H (50-75) % Lymph % (Auto) 9.2 L (25-40) % [place] % (Auto) 7.1 (3-14) % Eos % (Auto) 0.0 L (2-4) % Baso % (Auto) 0.4 (0-2) % Neut # (Auto) 83234 H (3716-1150) /uL Lymph # (Auto) 1300 (0721-0470) /uL [place] # (Auto) 1000 H (0-900) /uL Eos # (Auto) 0 (0-450) /uL Baso # (Auto) 100 (0-100) /uL PT 13.2 H (10.1-12.7) SECONDS INR 1.2 (0.9-1.3) APTT 37 H (26-36) SECONDS Sodium 134 L (137-145) mmol/L Potassium 3.8 (3.4-5.1) mmol/L Chloride 97 L (98-107) mmol/L Carbon Dioxide 25 (22-32) mmol/L BUN 20 (9-20) mg/dL Creatinine 1.02 (0.66-1.25) mg/dL Estimated GFR > 60 (>60) mL/min BUN/Creatinine Ratio 19.6 (6-22) Glucose 151 H (80-110) mg/dL Lactate (0.7-2.1) mmol/L Calcium 9.6 (8.4-10.2) mg/dL Magnesium 2.0 (1.6-2.3) mg/dL Total Bilirubin 1.1 (0.2-1.3) mg/dL AST 24 (17-59) IU/L ALT 18 (<50) IU/L Alkaline Phosphatase 106 (38-126) U/L Total Creatine Kinase 141 (55-170) U/L CK-MB (CK-2) TNP CK-MB (CK-2) Rel Index TNP Troponin I 0.015 (0.01-0.034) ng/mL Total Protein 7.9 (6.3-8.2) g/dL Albumin 4.3 (3.5-5.0) g/dL Globulin 3.6 (1.7-4.1) g/dL Albumin/Globulin Ratio 1.2 (1.0-2.8) Lipase 29 (23-300) U/L 10/15/22 10/16/22 10/16/22 Range/Units 17:45 02:05 02:05 WBC 10.7 (4.5-11.0) X10^3/uL RBC 4.26 L (4.5-5.9) X10^6/uL Hgb 13.4 L (13.5-17.5) g/dL Hct 39.1 L (41-53) % MCV 91.7 (80-100) fL MCH 31.4 (26-34) PG MCHC 34.2 (30-36) % RDW 12.7 (11.6-14.8) % Plt Count 192 (150-400) X10^3/uL Neut % (Auto) 84.8 H (50-75) % Lymph % (Auto) 7.3 L (25-40) % [place] % (Auto) 7.6 (3-14) % Eos % (Auto) 0.1 L (2-4) % Baso % (Auto) 0.2 (0-2) % Neut # (Auto) 9100 H (4865-4720) /uL Lymph # (Auto) 800 L (4561-8037) /uL [place] # (Auto) 800 (0-900) /uL Eos # (Auto) 0 (0-450) /uL Baso # (Auto) 0 (0-100) /uL PT (10.1-12.7) SECONDS INR (0.9-1.3) APTT (26-36) SECONDS Sodium 137 (137-145) mmol/L Potassium 4.2 (3.4-5.1) mmol/L Chloride 101 (98-107) mmol/L Carbon Dioxide 26 (22-32) mmol/L BUN 16 (9-20) mg/dL Creatinine 0.94 (0.66-1.25) mg/dL Estimated GFR > 60 (>60) mL/min BUN/Creatinine Ratio 17.0 (6-22) Glucose 129 H (80-110) mg/dL Lactate 1.7 (0.7-2.1) mmol/L Calcium 8.7 (8.4-10.2) mg/dL Magnesium (1.6-2.3) mg/dL Total Bilirubin 0.8 (0.2-1.3) mg/dL AST 22 (17-59) IU/L ALT 15 (<50) IU/L Alkaline Phosphatase 82 (38-126) U/L Total Creatine Kinase (55-170) U/L CK-MB (CK-2) CK-MB (CK-2) Rel Index Troponin I (0.01-0.034) ng/mL Total Protein 6.8 (6.3-8.2) g/dL Albumin 3.7 (3.5-5.0) g/dL Globulin 3.1 (1.7-4.1) g/dL Albumin/Globulin Ratio 1.2 (1.0-2.8) Lipase (23-300) U/L 10/16/22 Range/Units 02:05 WBC (4.5-11.0) X10^3/uL RBC (4.5-5.9) X10^6/uL Hgb (13.5-17.5) g/dL Hct (41-53) % MCV (80-100) fL MCH (26-34) PG MCHC (30-36) % RDW (11.6-14.8) % Plt Count (150-400) X10^3/uL Neut % (Auto) (50-75) % Lymph % (Auto) (25-40) % [place] % (Auto) (3-14) % Eos % (Auto) (2-4) % Baso % (Auto) (0-2) % Neut # (Auto) (0713-1708) /uL Lymph # (Auto) (8841-7815) /uL [place] # (Auto) (0-900) /uL Eos # (Auto) (0-450) /uL Baso # (Auto) (0-100) /uL PT (10.1-12.7) SECONDS INR (0.9-1.3) APTT (26-36) SECONDS Sodium (137-145) mmol/L Potassium (3.4-5.1) mmol/L Chloride (98-107) mmol/L Carbon Dioxide (22-32) mmol/L BUN (9-20) mg/dL Creatinine (0.66-1.25) mg/dL Estimated GFR (>60) mL/min BUN/Creatinine Ratio (6-22) Glucose (80-110) mg/dL Lactate 0.9 (0.7-2.1) mmol/L Calcium (8.4-10.2) mg/dL Magnesium (1.6-2.3) mg/dL Total Bilirubin (0.2-1.3) mg/dL AST (17-59) IU/L ALT (<50) IU/L Alkaline Phosphatase (38-126) U/L Total Creatine Kinase (55-170) U/L CK-MB (CK-2) CK-MB (CK-2) Rel Index Troponin I (0.01-0.034) ng/mL Total Protein (6.3-8.2) g/dL Albumin (3.5-5.0) g/dL Globulin (1.7-4.1) g/dL Albumin/Globulin Ratio (1.0-2.8) Lipase (23-300) U/L MDM Narrative Medical decision making narrative: 69-year-old male returns with a different type of abdominal pain then brought him in yesterday. It is more severe and in a different location. He has poor appetite and is nauseated but not vomiting. He is quite tender in the left lower quadrant, labs are largely reassuring but imaging shows an interval change and questions bowel obstruction versus infectious process. I have discussed with both Radiology and General surgery and we will admit the patient, keep NPO, administer fluids and antibiotics, repeat labs and perform serial exams. Patient understands and agrees with diagnosis and plan Discharge Plan Departure Patient Disposition: Admitted As Inpatient Clinical Impression: Partial small bowel obstruction, Near syncope Admit Date/Time: 10/16/22 02:49 Admit Provider: Sneha Guerra
[2022-10-15] MEDS: SODIUM CHLORIDE 0.9% 1,000 ML 1000 ML IV ×2 (18:48→21:03)
[2022-10-15 19:00] LABS: Lactate (Lactic Acid) 1.7 mmol/L (0.7-2.1)
--- NOTE | 2022-10-15 22:48 | DI.CT.S_ITS ---
PROCEDURE: CT ABDOMEN PELVIS W CON INDICATIONS: abdominal pain, SBO vs. other TECHNIQUE: After the administration of IV contrast, axial sections were acquired from the lung bases to the pubic symphysis. Coronal and sagittal reformats were performed. For radiation dose reduction, the following was used: automated exposure control, adjustment of mA and/or kV according to patient size. COMPARISON: [facility], CT, CT ABDOMEN PELVIS WO/W CON, 01/15/2019, 13:14. [facility], US, US ABDOMEN LIMITED, 10/15/2022, 20:38. [facility], CT, CT KIDNEY URETER BLADDER (KUB), 10/14/2022, 8:10. FINDINGS: Image quality: Excellent. Lung bases: Unremarkable. Heart: No significant findings. ABDOMEN: Liver: Simple hepatic cysts. Gallbladder: Dependent luminal stones are present without wall thickening, unchanged. Biliary ducts: Unremarkable. Pancreas: Unremarkable. Spleen: Unremarkable. Adrenal Glands: Unchanged right adrenal. Kidneys and Ureters: Unremarkable. Stomach and Bowel: Dilated loops small are identified within the abdomen and pelvis, which have become more prominent compared to prior exam. In addition there is dilated loops of colon in the ascending and transverse. Small bowel loops measure 3.3 cm in transverse dimension. In the central portion of pelvis there is marked inflammation which has developed since prior exam. There is thickened loops of bowel presumably small bowel with areas of interposed fluid. There is inflammation of the adjacent sigmoid bowel loop as well as inflammatory change extending to the rectosigmoid junction all new compared to prior exam. There is thickening of the terminal ileum which is more prominent. In addition, what appears to be the appendix also is enlarged compared to prior exam. Mild dependent fluid is present within the pelvis. Ventral Wall: No hernia. Abdominal Nodes: No retroperitoneal or mesenteric adenopathy by size criteria. Vessels: Aorta and inferior vena cava are normal in size. PELVIS: Pelvic Organs: Unremarkable. Bladder: Unremarkable. Pelvic Nodes: No enlarged lymph nodes. Miscellaneous: No inguinal hernias are seen. Bones: Unremarkable. IMPRESSION: Dilation of both small and large bowel loops with central pelvic inflammation which has become markedly prominent compared to 10/14/2022. Areas of fluid within the lower pelvis may represent overlapping fluid-filled bowel loops. However, given degree of inflammation and bowel thickening, small areas of abscess cannot be excluded. In addition, there is interval marked thickening of the terminal ileum as well as appendix and adjacent sigmoid colon extending to the rectosigmoid junction all felt to be related to secondary inflammatory change. Overall appearance is most consistent with partial small bowel obstruction with subsequent marked overlying primary and secondary inflammatory change as described above. Surgical consult is recommended. The above findings were discussed with Dr. Ty Sorenson on 10/15/2022 at 11 40 5:00 p.m. Dictated by: Ana Roman M.D. on 10/15/2022 at 23:32 Approved by: Ana Roman M.D. on 10/15/2022 at 23:52
--- NOTE | 2022-10-15 23:12 | PC.NURSE ---
Addendum entered by Michaela Avendano R.N. 10/15/22 23:14: When ambulating, patient's sats stayed at 97% on room air. Original Note: Patient ambulated across unit with [employer] Dario. Patient denies shortness of breath or dizziness.
[2022-10-16] VITALS (17 sets, daily range): BP systolic 107–149; BP diastolic 59–81; PULSE 70–83; RESP 12–22; TEMP 36.3–37.4; O2SAT 94–99; BMI 24.4; BMI 24.1
[2022-10-16] MEDS: PIPERACILLIN/TAZO 4.5 GM in SODIUM CHLORIDE 0.9% 100 ML IV (00:04)
[2022-10-16 02:17] LABS: Add Manual Diff / Slide Review NO; Basophils Absolute Auto 0 /uL (0-100); Basophils Percent Auto 0.2 % (0-2); Eosinophils Absolute Auto 0 /uL (0-450); Eosinophils Percent Auto 0.1 % (2-4); Hematocrit 39.1 % (41-53); Hemoglobin 13.4 g/dL (13.5-17.5); Lymphocytes Absolute Auto 800 /uL (1100-4500); Lymphocytes Percent Auto 7.3 % (25-40); Mean Corpuscular HGB Conc 34.2 % (30-36); Mean Corpuscular Hemoglobin 31.4 PG (26-34); Mean Corpuscular Volume 91.7 fL (80-100); Monocytes Absolute Auto 800 /uL (0-900); Monocytes Percent Auto 7.6 % (3-14); Neutrophils Absolute Auto 9100 /uL (1500-7000); Neutrophils Percent Auto 84.8 % (50-75); Platelet Count 192 X10^3/uL (150-400); Red Blood Cell Count 4.26 X10^6/uL (4.5-5.9); Red Cell Distribution Width 12.7 % (11.6-14.8); White Blood Cell Count 10.7 X10^3/uL (4.5-11.0)
[2022-10-16 02:28] LABS: Lactate (Lactic Acid) 0.9 mmol/L (0.7-2.1)
[2022-10-16 02:29] LABS: Alanine Aminotransferase 15 IU/L (<50); Albumin 3.7 g/dL (3.5-5.0); Albumin Globulin Ratio 1.2 (1.0-2.8); Alkaline Phosphatase 82 U/L (38-126); Aspartate Aminotransferase 22 IU/L (17-59); Bilirubin Total 0.8 mg/dL (0.2-1.3); Blood Urea Nitrogen 16 mg/dL (9-20); Calcium 8.7 mg/dL (8.4-10.2); Carbon Dioxide 26 mmol/L (22-32); Chloride 101 mmol/L (98-107); Estimated Glomerular Filt Rate > 60 mL/min (>60); Globulin 3.1 g/dL (1.7-4.1); Glucose 129 mg/dL (80-110); HEMOLYSIS < 15 (0-50); Potassium 4.2 mmol/L (3.4-5.1); Sodium 137 mmol/L (137-145); Total Protein 6.8 g/dL (6.3-8.2)
[2022-10-16] MEDS: SODIUM CHLORIDE 0.9% 1,000 ML 125 ML IV ×2 (04:17→15:05)
--- NOTE | 2022-10-16 05:28 | PC.ADMIT ---
[email or web address] Estelle emily Admission Note: The patient,Sergio Mackay,77 y/o, was given written information regarding hospital policies, unit procedures and contact persons. Patient's smoking status: Never smoker. Vital Signs - 8 hr 10/15/22 22:59 10/15/22 23:12 10/15/22 22:00 Temperature Pulse Rate 100 H 78 Pulse Rate [Orthostatic Lying] 80 Pulse Rate [Orthostatic Sitting] 84 Pulse Rate [Orthostatic Standing] 93 H Respiratory Rate 14 Blood Pressure 142/72 H Blood Pressure [Orthostatic Lying] 146/75 H Blood Pressure [Orthostatic Sitting] 143/80 H Blood Pressure [Orthostatic Standing] 141/79 H Pulse Oximetry 97 97 Oxygen Delivery Method Room Air Oxygen Flow Rate 10/15/22 22:30 10/15/22 22:55 10/15/22 23:00 Temperature Pulse Rate 80 83 80 Pulse Rate [Orthostatic Lying] Pulse Rate [Orthostatic Sitting] Pulse Rate [Orthostatic Standing] Respiratory Rate 16 20 14 Blood Pressure 143/75 H 143/81 H 147/70 H Blood Pressure [Orthostatic Lying] Blood Pressure [Orthostatic Sitting] Blood Pressure [Orthostatic Standing] Pulse Oximetry 96 96 96 Oxygen Delivery Method Room Air Room Air Room Air Oxygen Flow Rate 10/15/22 23:20 10/15/22 23:30 10/16/22 00:00 Temperature Pulse Rate 80 82 81 Pulse Rate [Orthostatic Lying] Pulse Rate [Orthostatic Sitting] Pulse Rate [Orthostatic Standing] Respiratory Rate 19 14 20 Blood Pressure 155/74 H 119/58 L 149/73 H Blood Pressure [Orthostatic Lying] Blood Pressure [Orthostatic Sitting] Blood Pressure [Orthostatic Standing] Pulse Oximetry 99 95 95 Oxygen Delivery Method Room Air Room Air Room Air Oxygen Flow Rate 10/16/22 00:30 10/16/22 01:00 10/16/22 01:30 Temperature Pulse Rate 79 80 77 Pulse Rate [Orthostatic Lying] Pulse Rate [Orthostatic Sitting] Pulse Rate [Orthostatic Standing] Respiratory Rate 20 12 15 Blood Pressure 128/70 133/68 135/67 Blood Pressure [Orthostatic Lying] Blood Pressure [Orthostatic Sitting] Blood Pressure [Orthostatic Standing] Pulse Oximetry 95 94 96 Oxygen Delivery Method Room Air Room Air Room Air Oxygen Flow Rate 10/16/22 02:59 10/16/22 03:00 10/16/22 03:00 Temperature Pulse Rate 83 79 Pulse Rate [Orthostatic Lying] Pulse Rate [Orthostatic Sitting] Pulse Rate [Orthostatic Standing] Respiratory Rate 22 Blood Pressure 140/77 Blood Pressure [Orthostatic Lying] Blood Pressure [Orthostatic Sitting] Blood Pressure [Orthostatic Standing] Pulse Oximetry 95 98 Oxygen Delivery Method Room Air Room Air Oxygen Flow Rate 10/16/22 03:30 10/16/22 03:30 10/16/22 04:00 Temperature Pulse Rate 74 Pulse Rate [Orthostatic Lying] Pulse Rate [Orthostatic Sitting] Pulse Rate [Orthostatic Standing] Respiratory Rate 15 Blood Pressure 133/65 107/59 L Blood Pressure [Orthostatic Lying] Blood Pressure [Orthostatic Sitting] Blood Pressure [Orthostatic Standing] Pulse Oximetry 97 Oxygen Delivery Method Room Air Oxygen Flow Rate 10/16/22 04:00 10/16/22 04:15 10/16/22 05:18 Temperature 98.1 F Pulse Rate 75 81 Pulse Rate [Orthostatic Lying] Pulse Rate [Orthostatic Sitting] Pulse Rate [Orthostatic Standing] Respiratory Rate 20 18 Blood Pressure 129/74 Blood Pressure [Orthostatic Lying] Blood Pressure [Orthostatic Sitting] Blood Pressure [Orthostatic Standing] Pulse Oximetry 95 98 Oxygen Delivery Method Room Air Room Air Oxygen Flow Rate 0 Patient admitted to room 203 per wheelchair from ER. Is alert and oriented. Breath sounds CTA with RA sat of 98%. HRR w/telemetry reading of SR w/frequent PVC's. Denies nausea. Reports having had 4 diarrhea stools following syncopal episode at home. Is having lower abdominal pain with severity of 3/10 but declines intervention. Denies dysuria, frequency or urgency with urination although was in ER on Friday with complaints of pain with urination and hematuria. Is able to turn himself in bed. Currently on bedrest but was up to bathroom upon admission with SBA. Denies weakness, dizziness or unsteadiness. Is aware he will be NPO for now with surgery to consult in a.m. Fall risk score is high and bed alarm is activated. Oriented to call light and bed controls.
[2022-10-16] MEDS: PIPERACILLIN/TAZO 3.375 GM in SODIUM CHLORIDE 0.9% 100 ML IV (07:44)
--- NOTE | 2022-10-16 09:30 | PM.HP.1 ---
History of Present Illness History of Present Illness Date Patient Seen: 10/16/22 Time Patient Seen: 09:30 Chief complaint: Syncope,fell in shower,+LOC Narrative: 77-year-old man admitted to the hospital for a presyncopal episode. For the past several days he is had abdominal pain nausea bloating and intermittent diarrhea. Yesterday in the shower he felt lightheaded and sat down he did not strike his head or blackout. At admission afebrile vital signs are within normal limits. White blood cell count initially 14 after fluid resuscitation down to 10.7. Remainder of his laboratory studies were within normal limits. CT abdomen pelvis demonstrates dilated loops of large and small bowel no free air or free fluid, suggestive of a partial small bowel obstruction.. [facility] Medical History Arthritis Cataract Chicken pox Colon polyps Hayfever Hearing loss Hemorrhoids History of colonic polyps (02/14/15) History of inguinal hernia (08/13/16) Hyperlipidemia Hypertension IBS (irritable bowel syndrome) Measles Mumps Prostate cancer (05/30/17) Recurrent sinusitis Surgical History Anesthesia History of colonoscopy (12/23/14) History of colonoscopy with polypectomy (09/22/09) History of prostate biopsy (05/30/17) History of right inguinal hernia repair (09/06/15) History of robot-assisted laparoscopic radical prostatectomy (08/12/17) History of tonsillectomy (~1949) Status post cataract extraction of both eyes with insertion of intraocular lens Status post eye surgery (~2009) Status post hemorrhoidectomy (1975) Family History Father Cancer determined by prostate biopsy Diabetes mellitus High cholesterol Brother No problems noted. Family/Other Stroke Heart attack Family/Other No problems noted. Grandfather No problems noted. Grandmother No problems noted. Mother Ovarian cancer Grandfather Accident Grandmother No problems noted. Sister Multiple sclerosis Social History marital status: household members: spouse Smoking Status: Never smoker alcohol intake: current substance use type: does not use Meds Home Medications and Allergies Home Medications Medication Instructions Recorded Confirmed Type CHONDROITIN SULFATE/GLUCOSAMIN 1 tab PO Q DAY ##0 10/12/10 10/16/22 History ([id number]) VITAMIN B COMPLEX (SUPER B COMPLEX) 1 cap PO Q DAY ##0 10/12/10 10/16/22 History cholecalciferol (vitamin D3) 25 1,000 unit PO DAILY ##0 10/12/10 10/16/22 History mcg (1,000 unit) capsule (Vitamin D3) desonide 0.05 % topical cream 1 applic topical DAILY PRN Eczema 10/24/21 10/16/22 History spots losartan 100 mg tablet 100 mg PO DAILY #90 tabs 06/13/22 10/16/22 Rx simvastatin 80 mg tablet 80 mg PO BEDTIME #90 tabs 06/13/22 10/16/22 Rx plecanatide 3 mg tablet (Trulance) 3 mg PO DAILY #90 tabs 07/19/22 10/16/22 Rx Allergies Allergy/AdvReac Type Severity Reaction Status Date / Time No Known Drug Allergies Allergy Verified 06/20/22 10:41 Exam Vital Signs (past 8 hours): - 10/16/22 02:59 10/16/22 03:00 10/16/22 03:00 Temperature Pulse Rate 83 79 Respiratory Rate 22 Blood Pressure 140/77 Pulse Oximetry 95 98 Oxygen Delivery Method Room Air Room Air Oxygen Flow Rate 10/16/22 03:30 10/16/22 03:30 10/16/22 04:00 Temperature Pulse Rate 74 Respiratory Rate 15 Blood Pressure 133/65 107/59 L Pulse Oximetry 97 Oxygen Delivery Method Room Air Oxygen Flow Rate 10/16/22 04:00 10/16/22 04:15 10/16/22 05:18 Temperature 98.1 F Pulse Rate 75 81 Respiratory Rate 20 18 Blood Pressure 129/74 Pulse Oximetry 95 98 Oxygen Delivery Method Room Air Room Air Oxygen Flow Rate 0 10/16/22 08:00 Temperature 99.3 F Pulse Rate 70 Respiratory Rate 18 Blood Pressure 117/70 Pulse Oximetry 95 Oxygen Delivery Method Oxygen Flow Rate 0 Oxygen Delivery Method Room Air Oxygen Flow Rate 0 Narrative Exam Narrative: General adult man alert oriented no acute distress Chest nonlabored respirations Cardiac regular rate and rhythm Abdomen minimally tender periumbilical. No hernias. Objective Labs 10/16/22 02:05 10/16/22 02:05 Labs: Laboratory Results - last 24 hr 10/15/22 10/15/22 10/15/22 17:45 17:45 17:45 WBC 14.2 H RBC 4.70 Hgb 14.5 Hct 43.1 MCV 91.8 MCH 30.7 MCHC 33.5 RDW 12.6 Plt Count 235 Neut % (Auto) 83.3 H Lymph % (Auto) 9.2 L [place] % (Auto) 7.1 Eos % (Auto) 0.0 L Baso % (Auto) 0.4 Neut # (Auto) 24617 H Lymph # (Auto) 1300 [place] # (Auto) 1000 H Eos # (Auto) 0 Baso # (Auto) 100 PT 13.2 H INR 1.2 APTT 37 H Sodium 134 L Potassium 3.8 Chloride 97 L Carbon Dioxide 25 BUN 20 Creatinine 1.02 Estimated GFR > 60 BUN/Creatinine Ratio 19.6 Glucose 151 H Lactate Calcium 9.6 Magnesium 2.0 Total Bilirubin 1.1 AST 24 ALT 18 Alkaline Phosphatase 106 Total Creatine Kinase 141 CK-MB (CK-2) TNP CK-MB (CK-2) Rel Index TNP Troponin I 0.015 Total Protein 7.9 Albumin 4.3 Globulin 3.6 Albumin/Globulin Ratio 1.2 Lipase 29 10/15/22 10/16/22 10/16/22 17:45 02:05 02:05 WBC 10.7 RBC 4.26 L Hgb 13.4 L Hct 39.1 L MCV 91.7 MCH 31.4 MCHC 34.2 RDW 12.7 Plt Count 192 Neut % (Auto) 84.8 H Lymph % (Auto) 7.3 L [place] % (Auto) 7.6 Eos % (Auto) 0.1 L Baso % (Auto) 0.2 Neut # (Auto) 9100 H Lymph # (Auto) 800 L [place] # (Auto) 800 Eos # (Auto) 0 Baso # (Auto) 0 PT INR APTT Sodium 137 Potassium 4.2 Chloride 101 Carbon Dioxide 26 BUN 16 Creatinine 0.94 Estimated GFR > 60 BUN/Creatinine Ratio 17.0 Glucose 129 H Lactate 1.7 Calcium 8.7 Magnesium Total Bilirubin 0.8 AST 22 ALT 15 Alkaline Phosphatase 82 Total Creatine Kinase CK-MB (CK-2) CK-MB (CK-2) Rel Index Troponin I Total Protein 6.8 Albumin 3.7 Globulin 3.1 Albumin/Globulin Ratio 1.2 Lipase 10/16/22 02:05 WBC RBC Hgb Hct MCV MCH MCHC RDW Plt Count Neut % (Auto) Lymph % (Auto) [place] % (Auto) Eos % (Auto) Baso % (Auto) Neut # (Auto) Lymph # (Auto) [place] # (Auto) Eos # (Auto) Baso # (Auto) PT INR APTT Sodium Potassium Chloride Carbon Dioxide BUN Creatinine Estimated GFR BUN/Creatinine Ratio Glucose Lactate 0.9 Calcium Magnesium Total Bilirubin AST ALT Alkaline Phosphatase Total Creatine Kinase CK-MB (CK-2) CK-MB (CK-2) Rel Index Troponin I Total Protein Albumin Globulin Albumin/Globulin Ratio Lipase Assessment & Plan Assessment and plan (1) Partial small bowel obstruction: Status: Acute Assessment & Plan narrative: 77 y.o man admitted with a partial small bowel obstruction versus enteritis. CT abdomen pelvis personally reviewed demonstrates dilated loops of bowel no free air no free fluid no transition point. Nontoxic, no peritonitis, no surgical intervention indicated. Small-bowel obstruction resolving, has return of bowel function. -Clears -IVF -DC Abx -OOB Ambulate PT/OT -SCDs and pLovenox -stool studies
--- NOTE | 2022-10-16 11:34 | CM.DANOTE ---
DCP Assessment: Patient is a 77yo Male here under inpatient status following a near syncope episode and partial bowel obstruction. PCP: Sammy Erickson. Starting with [facility] in December Payer: [facility] and self pay PRE BILLING CLINICIAN reviewed EMR. From rounds, they were considering doing surgery later today but patient had a bowel movement. Per Dr. Morales's note, they are no longer doing surgery at this time. Patient is still on clears at this time and they will be slowly advancing his diet. PRE BILLING CLINICIAN entered room and introduced self and role. Patient was sitting up in the chair and appeared A/Ox4. Patient reports he lives with his , Ana M ([phone]), that can assist with d/c needs. Patient has a brother in town that can also assist with his d/c needs. Patient reports he drives and he's independent at baseline with ADLs. He regularly goes on hikes with his . Patient has been up to go to the bathroom but hasn't moved much other than that. Patient reports being in pain and reports that he was told he would d/c when he was no longer in pain. Patient reports this incident made him worried about future planning for him and his . Patient is concerned that may be starting to show signs up dementia. Patient reports can still drive but is worried about the future. PRE BILLING CLINICIAN provided patient with [employer] Booklet for caregiver and other care home planning information. Patient appeared appreciative for the information. Plan: d/c home to when medically stable. Transport with either or brother. Follow up with OP care. CM team to continue to follow closely. 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 No History Provided By Patient,Medical Record Prior Living Arrangements House Household Members spouse Type of transporation used prior to Drives own vehicle admit Independent with ADL's Yes Is patient alert and oriented? Yes Barriers to Discharge No Discharge Plan Home Transportation Arrangement either or brother will come get him Whiteboard Updated in Patient Room with Yes name and ext. # of Bookbinding Machine Operator Review Status In Process Next Review Type Continued Stay Review
--- NOTE | 2022-10-16 14:31 | OT.IPNOTE ---
Per nursing and nursing aid pt doing well and has no OT needs. Able to touch base with the pt and agreed that not needing OT eval, therefore discharge OT eval order.
--- NOTE | 2022-10-16 16:30 | PC.NURSE ---
Assumed care of pt at 1500: A&Ox4, no SOB, c/o 5/10 cramping pain to abdomen with movement or ambulation, but no pain when resting in bed. CMS intact bilaterally, lung sounds CTA, bowel sounds hypoactive. IV fluids to R FA. Pt up independently, requesting a break from SCDs, education provided. Call light within reach.
--- NOTE | 2022-10-16 16:42 | PT.IIE ---
Current Diagnoses Partial intestinal obstruction, unspecified as to cause (10/16/22) Surgical History (Last Reviewed 10/16/22 @ 15:40 by Angelo Morales MD) Anesthesia History of colonoscopy (12/23/14) History of colonoscopy with polypectomy (09/22/09) History of prostate biopsy (05/30/17) History of right inguinal hernia repair (09/06/15) History of robot-assisted laparoscopic radical prostatectomy (08/12/17) History of tonsillectomy (~1949) Status post cataract extraction of both eyes with insertion of intraocular lens Status post eye surgery (~2009) Status post hemorrhoidectomy (1975) Medical History (Last Reviewed 10/16/22 @ 15:40 by Angelo Morales MD) Arthritis Cataract Chicken pox Colon polyps Hayfever Hearing loss Hemorrhoids History of colonic polyps (02/14/15) History of inguinal hernia (08/13/16) Hyperlipidemia Hypertension IBS (irritable bowel syndrome) Measles Mumps Prostate cancer (05/30/17) Recurrent sinusitis Physical Therapy Inpatient Evaluation/Re-Eval M1 PT/OT-IP Prior Functional Status Start: 10/16/22 16:22 Freq: NEEDED Status: Active Protocol: Document 10/16/22 16:22 ES (Rec: 10/16/22 16:42 ES [id number]) Medical Review Prior Functional Status Medical History Reviewed Yes Diet/Fluid Consistency Regular Communication Indep Mobility and Gait Indep without AD Activities of Daily Living and IADL's Indep Social History Household Members spouse Living Arrangements House Number of Floors (Floors) Two Floors Number of Stairs To Enter/Railing? Either has 5-6 stairs with rail or 2 small steps without rail but with shelf to hold onto to enter. Full flight of stairs down to lower level with rail. Additional Social History Comment Has a walking stick he uses outside on occasion. M2 PT-IP Current Condition Start: 10/16/22 16:22 Freq: NEEDED Status: Active Protocol: Document 10/16/22 16:22 ES (Rec: 10/16/22 16:42 ES [id number]) Physical Therapy Current Condition Current Condition Evaluation Date 10/16/22 Treatment Diagnosis Presyncopal episode, partial SBO vs enteritis, weakness Onset Date 10/15/22 M3 PT-IP Subjective Start: 10/16/22 16:22 Freq: NEEDED Status: Active Protocol: Document 10/16/22 16:22 ES (Rec: 10/16/22 16:42 ES [id number]) Subjective Physical Therapy Visit Type Type Initial Evaluation Visit Start Time 13:25 Visit Stop Time 13:39 Total Visit Minutes 14 Physical Therapy Visit Comments Patient Comments Patient reported having some abdominal pain but tolerable. Gets worse when he's standing and moving. Agreeable to work with PT. Therapy Pain Assessment Pain When Pain Assessed During Mobility Pain Present Pain Present Pain Reported Location Lower abdomen Intensity 5 Scale Used Numeric (0 - 10) M4 PT-IP Mobility and Gait Start: 10/16/22 16:22 Freq: NEEDED Status: Active Protocol: Document 10/16/22 16:22 ES (Rec: 10/16/22 16:42 ES [id number]) PT-Bed Mobility Assessment Rolling Type of Rolling Log Rolling Level of Assist Independent Supine to Sit Supine to Sit Standby Assistance Sit to Supine Sit to Supine Standby Assistance Scooting Scooting to Edge of Bed Independent Scooting Up and Down in Bed Independent PT-Transfer Assessment Sit to and From Stand Sit to and from Stand Standby Assistance,Use of Upper Extremities Equipment Transfer Assistive Device None Transfers Transfer Destination Bed Transfer Technique Ambulated Transfer Ability Level of Assist Standby Assistance,Use of Upper Extremities Gait Assessment Gait Gait Assistance Required: Standby Assistance Distance (Feet) 180 Assistive Devices Assistive Device None Gait Deviations General Gait Pattern Decreased Stride Length,Flexed Trunk Factors Limiting Gait Function Factors Limiting Gait Function Pain Comments Gait Comments Decreased gait speed/mario Stair Climbing Assessment Evaluation Level of Assist On Stairs Standby Assistance Devices Stair Climbing Assistive Devices Left Railing Technique/Endurance Stair Climbing Direction Ascend and Descend Stair Climbing Technique Step Over Step Number of Steps Climbed 3 Query Text: Stair Climbing Set # Repetitions (reps) 1 Comments Stair Climbing Comments Unsteady with attempt at descending stairs without rail . PT-Balance Assessment Sitting Balance and Reactions Static Sitting Balance Ability Good Dynamic Sitting Balance Ability Good Standing Balance and Reactions Static Standing Balance Ability Good Dynamic Standing Balance Ability Fair Device Used None M5 PT-IP Objective Assessments Start: 10/16/22 16:22 Freq: NEEDED Status: Active Protocol: Document 10/16/22 16:22 ES (Rec: 10/16/22 16:42 ES [id number]) Orientation Orientation/Cognition Level of Alertness Alert Orientation Name,Age,Birthday,Month,Date, Year,Day of Week,Place, Situation Language Function Ability No Deficits Noted Safety Awareness Understands Safety Issues Memory Description No Deficits Noted Gross Range of Motion Upper Extremity ROM Assessment Within Functional Limits Lower Extremity ROM Assessment Within Functional Limits Strength Upper Extremity Strength Assessment Within Functional Limits Lower Extremity Strength Assessment Within Functional Limits Coordination Assessment Gross Coordination Gross Coordination WNL M6 PT-IP Treatment Start: 10/16/22 16:22 Freq: NEEDED Status: Active Protocol: Document 10/16/22 16:22 ES (Rec: 10/16/22 16:42 ES [id number]) Physical Therapy Treatment Education Education Provided Safety M7 PT-IP Assessment and Plan Start: 10/16/22 16:22 Freq: NEEDED Status: Active Protocol: Document 10/16/22 16:22 ES (Rec: 10/16/22 16:42 ES [id number]) PT Summary Assessment and Plan Potential Rehabilitation Potential Excellent Status of Condition at Evaluation Evolving Summary Impairments Pain,Balance,Activity Tolerance Assessment Summary Patient is a 77 year old male who presents with decreased activity tolerance and balance primarily due to abdominal pain. He was able to demonstrate ability to get up to bathroom, ambulate in [place], and go up/down stairs with supervision. He was unsteady with descending stairs without use of rail; recommend his assist him getting in/out of the house if using stairs without rail. Anticipate patient will be able to d/c home when medically stable. Will continue to follow in order to improve activity tolerance and safety with ambulation and stairs. Goals Bed Mobility Goal Independent Transfer Goal Independent Gait Goal Independent Gait Distance 300 ft Other Goals Patient will be able to ascend /descend 10 stairs with rail indep. Days to Meet Goals 3 Frequency of Treatment Frequency Of Treatment Once a Day Treatment Plan Physical Therapy Treatment Plan Bed Mobility Training,Transfer Training,Gait Training, Therapeutic Exercise,Discharge Planning Recommendations To Nursing Amount of Assist Needed Standby Assistance Discharge Recommendations PT Discharge Recommendations Home with Assistance Transportation Needs at Discharge Private Vehicle
[2022-10-16] MEDS: SODIUM CHLORIDE 0.9% FLUSH 10 ML IV (19:55)
[2022-10-17] VITALS (8 sets, daily range): BP systolic 104–147; BP diastolic 67–81; PULSE 72–88; RESP 18–20; TEMP 36.6–36.8; O2SAT 95–98
--- NOTE | 2022-10-17 00:02 | PC.NURSE ---
Addendum entered by Briseida Blount R.N. 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 BP 111/81. Patient asymptomatic. Original Note: Patient is alert and oriented. Breath sounds CTA with RA sat of 95%. HRR. Denies nausea. Still having bilateral lower abdominal tenderness right > left with severity of 5/10 exacerbated by movement but tolerable and declines pain medication. Had liquid stools earlier prior to order for stool culture but none since. BT present and abdomen is soft. Denies dysuria or urgency with urination but having some frequency. Has been independent with mobility but verbalized understanding to call for assistance if feeling unsteady, dizzy or lightheaded and to make certain to sit on edge of bed prior to getting to feet when getting out of bed. Refused use of SCD's so reminded to ankle wave. Fall risk score is high but alarm not activated.
[2022-10-17] MEDS: ENOXAPARIN 40 MG/0.4 ML SYRINGE SUBCUT (08:28)
[2022-10-17] MEDS: SODIUM CHLORIDE 0.9% FLUSH 10 ML IV ×2 (08:29→20:26)
[2022-10-17 09:46] LABS: Add Manual Diff / Slide Review NO; Basophils Absolute Auto 0 /uL (0-100); Basophils Percent Auto 0.3 % (0-2); Eosinophils Absolute Auto 0 /uL (0-450); Eosinophils Percent Auto 0.4 % (2-4); Hematocrit 38.1 % (41-53); Hemoglobin 12.8 g/dL (13.5-17.5); Lymphocytes Absolute Auto 600 /uL (1100-4500); Lymphocytes Percent Auto 8.7 % (25-40); Mean Corpuscular HGB Conc 33.6 % (30-36); Mean Corpuscular Hemoglobin 30.9 PG (26-34); Monocytes Absolute Auto 500 /uL (0-900); Monocytes Percent Auto 7.6 % (3-14); Neutrophils Absolute Auto 5400 /uL (1500-7000); Platelet Count 221 X10^3/uL (150-400); Red Blood Cell Count 4.14 X10^6/uL (4.5-5.9); Red Cell Distribution Width 12.3 % (11.6-14.8); White Blood Cell Count 6.6 X10^3/uL (4.5-11.0)
--- NOTE | 2022-10-17 11:11 | PT.IPTN ---
Current Diagnoses Partial intestinal obstruction, unspecified as to cause (10/16/22) Physical Therapy Treatment Note M2 PT-IP Current Condition Start: 10/16/22 16:22 Freq: NEEDED Status: Active Protocol: Document 10/16/22 16:22 ES (Rec: 10/16/22 16:42 ES [id number]) Physical Therapy Current Condition Current Condition Evaluation Date 10/16/22 Treatment Diagnosis Presyncopal episode, partial SBO vs enteritis, weakness Onset Date 10/15/22 M3 PT-IP Subjective Start: 10/16/22 16:22 Freq: NEEDED Status: Active Protocol: Document 10/17/22 11:00 KS (Rec: 10/17/22 13:11 KS [id number]) Subjective Physical Therapy Visit Type Type Treatment Note Visit Start Time 11:00 Visit Stop Time 11:11 Total Visit Minutes 11 Number of STORY TELLER Visits 1 Physical Therapy Visit Comments Patient Comments Patient reported having some abdominal pain but tolerable. Gets worse when he's standing and moving. Agreeable to work with PT. M4 PT-IP Mobility and Gait Start: 10/16/22 16:22 Freq: NEEDED Status: Active Protocol: Document 10/17/22 11:00 KS (Rec: 10/17/22 13:11 KS [id number]) PT-Transfer Assessment Equipment Transfer Assistive Device None,Gait Belt Transfers Transfer Destination Chair Transfer Technique Ambulated Transfer Ability Level of Assist Standby Assistance,Use of Upper Extremities Comments Mobility Comments Pt up ambulating around room w / upon arrival and agreeable to further ambulation w/ PT. Pt ambulated ~220 ft w/ no AD SBA to CGA, 1x LOB but able to correct on his own. Pt still feels far from his baseline and verbalized awareness of decreased balance. Pt left w/ all needs in reach. Gait Assessment Gait Gait Assistance Required: Standby Assistance,Contact Guard Assist,1 Person Assist Distance (Feet) 220 Assistive Devices Assistive Device None,Gait Belt Gait Deviations General Gait Pattern Decreased Stride Length,Flexed Trunk,Narrow Based Gait Factors Limiting Gait Function Factors Limiting Gait Function Pain,Poor Balance Comments Gait Comments Decreased gait speed/mario, 1x minor LOB Stair Climbing Assessment Comments Stair Climbing Comments Did not assess this tx d/t abdominal pain PT-Balance Assessment Sitting Balance and Reactions Static Sitting Balance Ability Good Dynamic Sitting Balance Ability Good Standing Balance and Reactions Static Standing Balance Ability Good Dynamic Standing Balance Ability Fair Device Used None M5 PT-IP Objective Assessments Start: 10/16/22 16:22 Freq: NEEDED Status: Active Protocol: Document 10/16/22 16:22 ES (Rec: 10/16/22 16:42 ES [id number]) Orientation Orientation/Cognition Level of Alertness Alert Orientation Name,Age,Birthday,Month,Date, Year,Day of Week,Place, Situation Language Function Ability No Deficits Noted Safety Awareness Understands Safety Issues Memory Description No Deficits Noted Gross Range of Motion Upper Extremity ROM Assessment Within Functional Limits Lower Extremity ROM Assessment Within Functional Limits Strength Upper Extremity Strength Assessment Within Functional Limits Lower Extremity Strength Assessment Within Functional Limits Coordination Assessment Gross Coordination Gross Coordination WNL M6 PT-IP Treatment Start: 10/16/22 16:22 Freq: NEEDED Status: Active Protocol: Document 10/17/22 11:00 KS (Rec: 10/17/22 13:11 KS [id number]) Physical Therapy Treatment Education Education Provided Safety M7 PT-IP Assessment and Plan Start: 10/16/22 16:22 Freq: NEEDED Status: Active Protocol: Document 10/17/22 11:00 KS (Rec: 10/17/22 13:11 KS [id number]) PT Summary Assessment and Plan Potential Rehabilitation Potential Excellent Summary Impairments Pain,Balance,Activity Tolerance Progress Towards Goals Progressing Toward Goals Assessment Summary Pt progressing well but remains limited by decreased balance and pain. Ambulated ~ 220 ft w/o AD SBA to CGA w/ 1x LOB however recovered quickly and independently. Will continue to progress as pt remains far from his baseline however anticipate pt to be safe to d/c home when medically stable. Goals Bed Mobility Goal Independent Transfer Goal Independent Gait Goal Independent Gait Distance 300 ft Other Goals Patient will be able to ascend /descend 10 stairs with rail indep. Days to Meet Goals 3 Frequency of Treatment Frequency Of Treatment Once a Day Treatment Plan Physical Therapy Treatment Plan Bed Mobility Training,Transfer Training,Gait Training, Therapeutic Exercise,Discharge Planning Recommendations To Nursing Amount of Assist Needed Standby Assistance Discharge Recommendations PT Discharge Recommendations Home with Assistance, Outpatient PT Transportation Needs at Discharge Private Vehicle
--- NOTE | 2022-10-17 15:45 | P.PN_ITS ---
Subjective Subjective Date Patient Seen: 10/17/22 Time Patient Seen: 15:46 Interval history: Tolerating clear liquid diet. Positive BM and flatus. Abdominal pain d iminished but not resolved. Exam Vital Signs (past 8 hours): - 10/17/22 08:00 10/17/22 08:00 10/17/22 12:00 Temperature 98 F 98.1 F Pulse Rate 80 88 Respiratory Rate 18 18 Blood Pressure 131/80 104/69 Pulse Oximetry 96 96 97 Oxygen Delivery Method Room Air Oxygen Flow Rate 0 0 10/17/22 13:00 Temperature Pulse Rate Respiratory Rate Blood Pressure Pulse Oximetry 97 Oxygen Delivery Method Room Air Oxygen Flow Rate Oxygen Delivery Method Room Air Oxygen Flow Rate 0 Narrative Exam Narrative: General adult man alert oriented no acute distress Abdomen soft minimally tender right lower quadrant. No peritonitis. Nondistended Objective Labs 10/17/22 09:35 10/16/22 02:05 Labs: Laboratory Results - last 24 hr 10/17/22 09:35 WBC 6.6 RBC 4.14 L Hgb 12.8 L Hct 38.1 L MCV 92.0 MCH 30.9 MCHC 33.6 RDW 12.3 Plt Count 221 Neut % (Auto) 83.0 H Lymph % (Auto) 8.7 L Campbell % (Auto) 7.6 Eos % (Auto) 0.4 L Baso % (Auto) 0.3 Neut # (Auto) 5400 Lymph # (Auto) 600 L Campbell # (Auto) 500 Eos # (Auto) 0 Baso # (Auto) 0 PFSH Medical History Arthritis Cataract Chicken pox Colon polyps Hayfever Hearing loss Hemorrhoids History of colonic polyps (02/14/15) History of inguinal hernia (08/13/16) Hyperlipidemia Hypertension IBS (irritable bowel syndrome) Measles Mumps Prostate cancer (05/30/17) Recurrent sinusitis Surgical History Anesthesia History of colonoscopy (12/23/14) History of colonoscopy with polypectomy (09/22/09) History of prostate biopsy (05/30/17) History of right inguinal hernia repair (09/06/15) History of robot-assisted laparoscopic radical prostatectomy (08/12/17) History of tonsillectomy (~1950) Status post cataract extraction of both eyes with insertion of intraocular lens Status post eye surgery (~2009) Status post hemorrhoidectomy (1975) Family History Father Cancer determined by prostate biopsy Diabetes mellitus High cholesterol Brother No problems noted. Family/Other Stroke Heart attack Family/Other No problems noted. Grandfather No problems noted. Grandmother No problems noted. Mother Ovarian cancer Grandfather Accident Grandmother No problems noted. Sister Multiple sclerosis Social History marital status: household members: spouse Smoking Status: Never smoker alcohol intake: current substance use type: does not use Assessment & Plan Assessment and plan (1) Partial small bowel obstruction: Status: Acute Assessment & Plan narrative: 77-year-old man admitted with a partial bowel obstruction. Obstruction is resolving. -regular diet -follow-up stool studies for diarrhea. -anticipate discharge home tomorrow
[2022-10-17] MEDS: ATORVASTATIN 20 MG TABLET 40 MG PO (20:24)
[2022-10-17] MEDS: LOSARTAN 50 MG TABLET 100 MG PO (20:25)
--- NOTE | 2022-10-17 23:47 | PC.NURSE ---
Reported had a recent fall. But declined to have bed alarm activated. States I been getting OOB frequently to go to the bathroom. Bed alarm off, will monitor.
[2022-10-18 03:01] VITALS: BP 140/72; PULSE 69; RESP 18; TEMP 36.7; O2SAT 95
[2022-10-18 05:00] VITALS: O2SAT 95
[2022-10-18 08:00] VITALS: BP 146/90; PULSE 77; RESP 17; TEMP 36.6; O2SAT 98
--- NOTE | 2022-10-18 08:30 | PT.IPTN ---
Current Diagnoses Partial intestinal obstruction, unspecified as to cause (10/16/22) Physical Therapy Treatment Note M2 PT-IP Current Condition Start: 10/16/22 16:22 Freq: NEEDED Status: Active Protocol: Document 10/16/22 16:22 ES (Rec: 10/16/22 16:42 ES [id number]) Physical Therapy Current Condition Current Condition Evaluation Date 10/16/22 Treatment Diagnosis Presyncopal episode, partial SBO vs enteritis, weakness Onset Date 10/15/22 M3 PT-IP Subjective Start: 10/16/22 16:22 Freq: NEEDED Status: Active Protocol: Document 10/18/22 08:45 TS (Rec: 10/18/22 09:00 TS [id number]) Subjective Physical Therapy Visit Type Type Treatment Note Visit Start Time 08:30 Visit Stop Time 08:43 Total Visit Minutes 13 Number of PSYCHOLOGIST EXPERIMENTAL Visits 2 Physical Therapy Visit Comments Patient Comments Pt reports not having much abdominal pain this morning, has been gettig up independently in room, agreeable to PT. M4 PT-IP Mobility and Gait Start: 10/16/22 16:22 Freq: NEEDED Status: Active Protocol: Document 10/18/22 08:45 TS (Rec: 10/18/22 09:00 TS [id number]) PT-Bed Mobility Assessment Supine to Sit Supine to Sit Independent Sit to Supine Sit to Supine Independent Scooting Scooting to Edge of Bed Independent Scooting Up and Down in Bed Independent PT-Transfer Assessment Sit to and From Stand Sit to and from Stand Independent,Use of Upper Extremities Equipment Transfer Assistive Device None,Gait Belt Comments Mobility Comments Pt found resting in bed, agreeable to PT. Pt Ind with logroll and supine to sit to EOB. He stood with no AD, no retroleaning or LOB. He progressed his gait to ~250' SBA with no AD, has some unsteadiness with NBOS. He performed stairs x12 SBA with single use of rail with LUE. Pt was left back in room, with call light nearby, RN notified. Gait Assessment Gait Gait Assistance Required: Standby Assistance,Contact Guard Assist,1 Person Assist Distance (Feet) 250 Assistive Devices Assistive Device None,Gait Belt Gait Deviations General Gait Pattern Decreased Stride Length,Flexed Trunk,Narrow Based Gait Factors Limiting Gait Function Factors Limiting Gait Function Poor Balance Comments Gait Comments Has some unsteadiness with NBOS. Stair Climbing Assessment Evaluation Level of Assist On Stairs Standby Assistance Devices Stair Climbing Assistive Devices Left Railing Technique/Endurance Stair Climbing Direction Ascend and Descend Stair Climbing Technique Step Over Step Number of Steps Climbed 12 Stair Climbing Set # Repetitions (reps) 1 Comments Stair Climbing Comments See mobility comments. PT-Balance Assessment Sitting Balance and Reactions Static Sitting Balance Ability Normal Dynamic Sitting Balance Ability Good Standing Balance and Reactions Static Standing Balance Ability Good Dynamic Standing Balance Ability Good Device Used None M5 PT-IP Objective Assessments Start: 10/16/22 16:22 Freq: NEEDED Status: Active Protocol: Document 10/16/22 16:22 ES (Rec: 10/16/22 16:42 ES [id number]) Orientation Orientation/Cognition Level of Alertness Alert Orientation Name,Age,Birthday,Month,Date, Year,Day of Week,Place, Situation Language Function Ability No Deficits Noted Safety Awareness Understands Safety Issues Memory Description No Deficits Noted Gross Range of Motion Upper Extremity ROM Assessment Within Functional Limits Lower Extremity ROM Assessment Within Functional Limits Strength Upper Extremity Strength Assessment Within Functional Limits Lower Extremity Strength Assessment Within Functional Limits Coordination Assessment Gross Coordination Gross Coordination WNL M6 PT-IP Treatment Start: 10/16/22 16:22 Freq: NEEDED Status: Active Protocol: Document 10/18/22 08:45 TS (Rec: 10/18/22 09:00 TS [id number]) Physical Therapy Treatment Education Education Provided Safety M7 PT-IP Assessment and Plan Start: 10/16/22 16:22 Freq: NEEDED Status: Active Protocol: Document 10/18/22 08:45 TS (Rec: 10/18/22 09:00 TS [id number]) PT Summary Assessment and Plan Potential Rehabilitation Potential Excellent Summary Impairments Pain,Balance,Activity Tolerance Progress Towards Goals Progressing Toward Goals Assessment Summary Pt continues to progress well with his mobility. He is Ind with all bed mobility and sit to stands with no AD. He progressed his gait to ~250' SBA with no AD, has some unsteadiness with NBOS but no LOB. He progressed his stairs to 12 steps with single handrail use step over step. PT is recommending return home with assist from spouse. Goals Bed Mobility Goal Independent Transfer Goal Independent Gait Goal Independent Gait Distance 300 ft Other Goals Patient will be able to ascend /descend 10 stairs with rail indep. Days to Meet Goals 3 Frequency of Treatment Frequency Of Treatment Once a Day Treatment Plan Physical Therapy Treatment Plan Bed Mobility Training,Transfer Training,Gait Training, Therapeutic Exercise,Discharge Planning Recommendations To Nursing Amount of Assist Needed Standby Assistance Discharge Recommendations PT Discharge Recommendations Home with Assistance, Outpatient PT Transportation Needs at Discharge Private Vehicle
[2022-10-18 09:00] VITALS: O2SAT 98
--- NOTE | 2022-10-18 11:06 | CM.DPNOTE ---
DC Note Discharge home with spouse today. Close outpatient follow up recommended; no needs from this CM team identified JW
--- NOTE | 2022-10-18 11:38 | PC.NURSE ---
Day shift: Went over discharge instructions with pt and pt's spouse. Answered all questions and pt stated understanding. PIV d/c'ed. Lavonne Fuentes escorted pt via wheelchair to exit with spouse.
--- NOTE | 2022-10-23 12:08 | PM.DS.1 ---
History of Present Illness History of Present Illness Date Patient Seen: 10/23/22 Time Patient Seen: 12:08 Chief complaint: Syncope,fell in shower,+LOC Narrative: 77-year-old man admitted to the hospital for a presyncopal episode. For the past several days he is had abdominal pain nausea bloating and intermittent diarrhea. Yesterday in the shower he felt lightheaded and sat down he did not strike his head or blackout. At admission afebrile vital signs are within normal limits. White blood cell count initially 14 after fluid resuscitation down to 10.7. Remainder of his laboratory studies were within normal limits. CT abdomen pelvis demonstrates dilated loops of large and small bowel no free air or free fluid, suggestive of a partial small bowel obstruction.. Discharge Providers Provider Date of admission: 10/16/22 02:49 Discharge Date: 10/18/22 Primary care physician: Sammy Erickson MD Consults: 10/16/22 09:28 Consult to Occupational Therapy Evaluate & Treat Comment: Physician Instructions: Evaluate and treat Consult to Physical Therapy Evaluate & Treat Comment: Physician Instructions: Evaluate and Treat Discharge provider: Angelo Morales MD Summary Hospital Course Discharge Diagnosis: Small-bowel obstruction Hospital Course: 77-year-old man with a history of prior abdominal surgery admitted to the hospital for management of a small-bowel obstruction. Obstruction resolved with conservative management. Diet was advanced. He tolerated a regular diet had return of bowel function was ambulatory at discharge. Status at Discharge Cognitive/behavioral status at discharge: oriented Time Spent with Patient Time spent: Greater than 30 minutes Exam Vital Signs (past 8 hours): Oxygen Delivery Method Room Air Oxygen Flow Rate 0 Narrative Exam Narrative: General adult man alert oriented no acute distress Chest nonlabored respiration Abdomen soft nontender nondistended Objective Labs 10/17/22 09:35 10/16/22 02:05 [facility] Medical History Arthritis Cataract Chicken pox Colon polyps Hayfever Hearing loss Hemorrhoids History of colonic polyps (02/14/15) History of inguinal hernia (08/13/16) Hyperlipidemia Hypertension IBS (irritable bowel syndrome) Measles Mumps Prostate cancer (05/30/17) Recurrent sinusitis Surgical History Anesthesia History of colonoscopy (12/23/14) History of colonoscopy with polypectomy (09/22/09) History of prostate biopsy (05/30/17) History of right inguinal hernia repair (09/06/15) History of robot-assisted laparoscopic radical prostatectomy (08/12/17) History of tonsillectomy (~1950) Status post cataract extraction of both eyes with insertion of intraocular lens Status post eye surgery (~2009) Status post hemorrhoidectomy (1975) Family History Father Cancer determined by prostate biopsy Diabetes mellitus High cholesterol Brother No problems noted. Family/Other Stroke Heart attack Family/Other No problems noted. Grandfather No problems noted. Grandmother No problems noted. Mother Ovarian cancer Grandfather Accident Grandmother No problems noted. Sister Multiple sclerosis Social History marital status: household members: spouse Smoking Status: Never smoker alcohol intake: current substance use type: does not use Discharge Plan Discharge Plan Patient Disposition: Home Discharge orders & Medications Prescriptions: Continued cholecalciferol (vitamin D3) [Vitamin D3] 1,000 unit Capsule 1,000 unit PO DAILY Qty: 0 CHONDROITIN SULFATE/GLUCOSAMIN ([id number]) 1 tab PO Q DAY Qty: 0 VITAMIN B COMPLEX (SUPER B COMPLEX) 1 cap PO Q DAY Qty: 0 losartan 100 mg tablet 100 mg PO DAILY Qty: 90 1RF Rx Instructions: PATIENT DUE FOR ANNUAL VISIT W/PCP. PLEASE CALL TO SCHEDULE. THANK YOU 06/13/22. simvastatin 80 mg tablet 80 mg PO BEDTIME Qty: 90 1RF Rx Instructions: PATIENT DUE FOR ANNUAL VISIT W/PCP. PLEASE CALL TO SCHEDULE. THANK YOU 06/13/22. Trulance 3 mg tablet 3 mg PO DAILY Qty: 90 1RF desonide 0.05 % cream 1 applic topical DAILY PRN (Reason: Eczema spots) Diet/Activity/Treatments Diet: Diet as Tolerated Skin/Wound/Dressing Care Report to your healthcare provider any signs of infection, such as:: chills, fever and increased pain Visit Report/Discharge Packet Instructions: Small Bowel Obstruction Stand Alone Forms: Patient Portal/API, Stroke Signs & Symptoms Discharge Data Primary Care Provider: Sammy Erickson Discharges patient from system. Discharge Date/Time: 10/18/22 11:05
== END 2022-10-18 11:05 | disposition home or self-care (01) | DRG 390 ==
LOC: ED 10-16 02:44 → AC 10-16 02:49
PROVIDERS: Emergency Medicine; Surgery; Admitting Provider Surgery; Emergency Provider Emergency Medicine; Family Provider Student in an Organized Health Care Education/Training Program; PCP Student in an Organized Health Care Education/Training Program; Referring Provider Emergency Medicine; Visit Provider Surgery
DX: K56.600 Partial intestinal obstruction, unspecified as to cause (principal); I10 Essential (primary) hypertension; E78.5 Hyperlipidemia, unspecified; K58.9 Irritable bowel syndrome, unspecified; Z20.822 Contact with and (suspected) exposure to COVID-19; R31.9 Hematuria, unspecified
CPT/HCPCS: 36415; 51798; 71045; 74176; 74177; 76705; 80053; 81003; 81015; 82550; 83605; 83690; 83735; 84484; 85025; 85610; 85730; 87045; 87899; 93005; 93010; 96365; 97116; 97161; 99221; 99231; 99238; 99283; 99284; 99285; J1650; J2543; Q9967

== ENCOUNTER → 2022-10-28 12:58 | Outpatient (CLI) | payer OTHER, SELFPAY ==
[2022-10-16 04:30] VITALS: BMI 24.1
[2022-10-28 14:09] LABS: Estimated Glomerular Filt Rate > 60 mL/min (>60)
== END ==
PROVIDERS: Family Provider Student in an Organized Health Care Education/Training Program; PCP Student in an Organized Health Care Education/Training Program; Referring Provider Urology; Visit Provider Urology
DX: R31.0 Gross hematuria (principal)
CPT/HCPCS: 36415; 82565

== ENCOUNTER → 2022-10-30 10:44 | Outpatient (CLI) | payer OTHER, SELFPAY ==
[2022-10-16 04:30] VITALS: BMI 24.1
--- NOTE | 2022-10-30 | DI.CT.S_ITS ---
PROCEDURE: CT IVP A/P W/WO INDICATIONS: Gross hematuria TECHNIQUE: Optional 5 mm thick noncontrast images acquired from the diaphragm to the symphysis pubis. After the administration of intravenous contrast, 5 mm thick images acquired from the diaphragm to the symphysis pubis after a 10-minute delay. 2 mm thick coronal and sagittal reformats were then performed of the kidneys and ureters. For radiation dose reduction, the following was used: automated exposure control, adjustment of mA and/or kV according to patient size. COMPARISON: [facility], CT, CT ABDOMEN PELVIS W CON, 10/15/2022, 23:03. FINDINGS: Image quality: Excellent. Lung bases: Lung bases are clear. Heart size is normal. Urinary system: Both kidneys are normal in size, without hydronephrosis or nephrolithiasis on pre-contrast images. A low-density cortical cystic lesion is present within the midpole of the right kidney. No perinephric fat stranding. There is normal bilateral renal enhancement. Renal calyces appear normal in morphology when filled with contrast. Opacified portions of both ureters demonstrate normal caliber. Bladder wall thickness is normal. No calcified bladder stones. Other solid organs: Liver is normal in size and enhancement. Low-density circumscribed cystic lesions are redemonstrated within the liver suggesting simple hepatic cysts. Gallbladder innumerable punctate calcified stones are layered in the gallbladder fundus. No gallbladder wall thickening or pericholecystic fluid. . Biliary system is non dilated. Pancreas enhances normally. Spleen is normal in size and enhancement. No adrenal nodules. Peritoneum and bowel: Bowel loops demonstrate normal wall thickness and caliber. The previously visualized small bowel obstruction has resolved. The appendix is enlarged with marked irregular wall thickening. Centrally complex fluid is present. This appendiceal lesion extends all along the lateral wall of the right hemipelvis (series 5/image is 68-75). Fat stranding is present within the pelvis around the distal aspect of this appendiceal mass. There are scattered sigmoid diverticula. No evidence for diverticulitis. No free fluid or air. Nodes and vessels: No retroperitoneal or mesenteric adenopathy by size criteria. Aorta and inferior vena cava are normal in size. Abdominal wall: No ventral hernias. Pelvis: No pathologic free pelvic fluid. No inguinal hernias or adenopathy. Bones: No suspicious bony lesions. No vertebral body compression fractures. IMPRESSION: 1. No hydronephrosis, nephrolithiasis, hydroureter, or ureterolithiasis. No suspicious renal enhancement or urothelial lesions. 2. Markedly irregular, enhancing, enlarged appearance of the distal appendix highly suspicious for neoplasm. Surgical consultation recommended. If further characterization is warranted, CT of the abdomen and pelvis with oral and intravenous contrast may be helpful. This finding was discussed with Dr. Faith at 1:05 p.m. On October 30, 2022. 3. Sigmoid diverticulosis. No acute diverticulitis. 4. Cholelithiasis. No findings to suggest choledocholithiasis or acute cholecystitis. Dictated by: Tayler Hope M.D. on 10/30/2022 at 12:45 Approved by: Tayler Hope M.D. on 10/30/2022 at 13:05
== END ==
PROVIDERS: Family Provider Student in an Organized Health Care Education/Training Program; PCP Family Medicine; Referring Provider Urology; Visit Provider Urology
DX: R31.0 Gross hematuria (principal); K57.30 Diverticulosis of large intestine without perforation or abscess without bleeding; K80.20 Calculus of gallbladder without cholecystitis without obstruction
CPT/HCPCS: 74178; Q9967

== ENCOUNTER → 2022-11-12 10:28 | Outpatient (CLI) | payer OTHER, SELFPAY ==
[2022-10-16 04:30] VITALS: BMI 24.1
[2022-11-12 11:10] LABS: BUN Creatinine Ratio 16.3 (6-22); Blood Urea Nitrogen 13 mg/dL (9-20); Calcium 9.2 mg/dL (8.4-10.2); Carbon Dioxide 29 mmol/L (22-32); Chloride 103 mmol/L (98-107); Estimated Glomerular Filt Rate > 60 mL/min (>60); Glucose 94 mg/dL (80-110); HEMOLYSIS < 15 (0-50); Potassium 4.6 mmol/L (3.4-5.1); Sodium 138 mmol/L (137-145)
[2022-11-12 11:41] LABS: Carcinoembryonic Antigen 1.3 ng/mL (0.1-3.0)
== END ==
PROVIDERS: Family Provider Student in an Organized Health Care Education/Training Program; PCP Family Medicine; Referring Provider Surgery; Visit Provider Surgery
DX: K38.8 Other specified diseases of appendix (principal); R42 Dizziness and giddiness; R55 Syncope and collapse
CPT/HCPCS: 36415; 80048; 82378; 99214

== ENCOUNTER → 2022-11-13 09:48 | Outpatient (CLI) | payer OTHER, SELFPAY ==
[2022-10-16 04:30] VITALS: BMI 24.1
--- NOTE | 2022-11-13 09:56 | DI.CT.S_ITS ---
PROCEDURE: CT HEAD/BRAIN WO/W CON INDICATIONS: off balance. feeling sea sick. TECHNIQUE: 4.5 mm thick angled axial sections acquired from the foramen magnum to the vertex both before and after the administration of intravenous contrast, with coronal and sagittal reformats. For radiation dose reduction, the following was used: automated exposure control, adjustment of mA and/or kV according to patient size. COMPARISON: None. FINDINGS: Image quality: Excellent. CSF spaces: Basal cisterns are patent. No extra-axial fluid collections. Ventricles are symmetric in size and shape. Brain: No midline shift. No intracranial bleeds or masses. No abnormal intracranial enhancement. There is cerebral volume loss for age. There is periventricular white matter chronic small vessel ischemic change. There is intracranial internal carotid artery atherosclerosis. In this patient with this given history, scrutiny is given to cerebellopontine angle cisterns and to the internal auditory canals. To the limits of this standard protocol CT study, no masses or abnormal enhancement can be seen within these regions. Skull and face: Calvarium and visualized facial bones appear intact, without suspicious lesions. Sinuses: Visualized sinuses and mastoids are clear. IMPRESSION: Unremarkable study age, without a cause of patient's presenting history identified. If it would be helpful for clinical management decision making, please consider a dedicated, scheduled brain MRI (IAC protocol, without and with contrast) for further evaluation (assuming that there is no contraindication). Dictated by: Tino Conn M.D. on 11/13/2022 at 9:16 Approved by: Tino Conn M.D. on 11/13/2022 at 9:18
== END ==
PROVIDERS: Family Provider Student in an Organized Health Care Education/Training Program; PCP Family Medicine; Referring Provider Surgery; Visit Provider Surgery
DX: R55 Syncope and collapse (principal); R42 Dizziness and giddiness; R26.89 Other abnormalities of gait and mobility
CPT/HCPCS: 70470

== ENCOUNTER 2022-12-06 09:14 | Day surgery (SDC) | payer OTHER, SELFPAY ==
[2022-10-16 04:30] VITALS: BMI 24.1
--- NOTE | 2022-12-06 | PATH_ITS ---
[facility] Accession Number: [id number] No. of containers..03 Tissue . 01 Material submitted: . PART A: colon - CECAL POLYP PART B: colon - ASCENDING POLYP PART C: appendix - APPENDIX . 01 Diagnosis: A. Cecal Polyp, Biopsy: Tubular adenoma. . B. Ascending Colon Polyp, Biopsy: Colonic mucosa with benign lymphoid aggregate. No definite dysplasia and no malignancy identified. See comment. . C. Appendix, Biopsy: Colonic mucosa with benign lymphoid aggregate. No definite dysplasia and no malignancy identified. See comment. V 12/19/2022 1507 Local . 01 Comment: B and C: Processing/coagulation artifact limits evaluation. . 01 Electronically signed: . Deborah Cobb MD, Pathologist NPI- [id number] . 01 Gross description: . A. The specimen is received in formalin, labeled with the patient's name, , and cecal polyp, and consists of two fragments of pink-gaspar soft tissue measuring 0.3 cm and 0.4 cm in greatest dimension. The tissue is entirely submitted in cassette A1. B. The specimen is received in formalin, labeled with the patient's name, , and ascending polyp, and consists of a single fragment of gaspar, soft tissue measuring 0.3 cm in greatest dimension. The tissue is entirely submitted in cassette B1. C. The specimen is received in formalin, labeled with the patient's name, , and appendix, and consists of four fragments of pink-gaspar soft tissue ranging from 0.1 cm to 0.4 cm in greatest dimension. The tissue is entirely submitted in cassette C1. ([id number]) /BILL 12/07/2022 1337 Local . 01 Pathologist provided ICD-10: D12.0, K63.89 . 01 CPT . 401216, 661595, 104725 Specimen Comment: A courtesy copy of this report has been sent to [facility] Performed at: 01 [facility] [address] [place] [address], [place], [place] [id number] MD Jaime Ervin MD Phone: [phone]
[2022-12-06 09:34] VITALS: BP 135/75; PULSE 68; RESP 16; TEMP 36.4; O2SAT 98; BMI 22.9
[2022-12-06] MEDS: LACTATED RINGERS 1,000 ML 84 ML IV ×2 (09:59→11:59)
--- NOTE | 2022-12-06 11:55 | PM.PREOP ---
Pre-operative Note Interval Note History & Physical reviewed/Exam performed by Physician: Yes Changes to H&P: No H&P completed within 30 days and has changed as indicated here:: He is subsequently has seen Dr. Painter in the office yesterday who evaluated him for neurologic symptoms and also has had a cystoscopy that came back unremarkable. He is still curious about what is going on in his appendix understands risks benefits and alternatives of this colonoscopy today and would like to proceed.
[2022-12-06 12:50] VITALS: BP 111/82; PULSE 66; RESP 16; TEMP 36.7; O2SAT 98
--- NOTE | 2022-12-06 12:53 | P.OP.COLON_ITS ---
Operative Date/Time/Diagnoses Date of procedure: 12/06/22 Time of procedure: 12:53 Pre-op diagnosis: Thickened appendiceal lesion seen on CT scan. Colon cancer screening, history of polyps Post-op diagnosis: same Procedure & Clinicians Study performed: Colonoscopy and biopsy Indications: Thickened appendiceal lesion seen on CT scan. Colon cancer screening, history of polyps Surgeon: Sneha Guerra Procedure Notes Procedure in detail: Patient was taken to the endoscopy suite and placed in a left lateral decubitus position. A time-out was performed. With the help of anesthesiologist conscious sedation was induced and monitored throughout the case. A digital rectal exam was performed and there were no masses or strictures. The colonoscope was introduced into the anal canal and advanced through to the cecum. There were diverticula throughout the sigmoid colon and a few twists and turns but the cecum was reached without difficulty. A photograph of the appendiceal orifice was obtained. The appendix appeared relatively normal externally. I did obtain a few biopsies as deep as I could within the appendix. The bowel prep was excellent [place] bowel prep score of 3. The scope was then withdrawn for a total of 17 minutes including biopsies and there was 1 very small polyp in the cecum which was photographed and removed with the forceps. There was 1 more small polyp in the ascending colon again removed with the forceps. The scope was then retroflexed and a photograph of the internal hemorrhoidal piles was obtained. Findings: divertiulosis, polyp(s) and other findings (Appendix appeared normal) Specimen(s): other (1. Cecal polyp 2. Ascending polyp 3. Appendix) Post-procedure Plan for aftercare: Depending on the pathology results the most likely follow-up interval will be 7- 10 years. Based on pathology report from the appendix we will need to make a further strategy on what to do and how to address this finding. If everything is normal I think we might want to repeat the CT scan again. If we redemonstrate the finding at that point we will be discussing whether a diagnostic appendectomy would be desired by the patient based on a conversation of risks benefits and alternatives of laparoscopic appendectomy.
[2022-12-06 12:55] VITALS: BP 127/82; PULSE 63; RESP 16; O2SAT 98
[2022-12-06 13:00] VITALS: BP 122/75; PULSE 65; RESP 16; O2SAT 97
[2022-12-06 13:07] VITALS: BP 128/78; PULSE 60; RESP 16; TEMP 36.2; O2SAT 98
== END 2022-12-06 13:26 | disposition home or self-care (01) ==
PROVIDERS: Family Provider Student in an Organized Health Care Education/Training Program; PCP Family Medicine; Referring Provider Surgery; Visit Provider Surgery
PROC: 0DJD8ZZ Inspection of Lower Intestinal Tract, Via Natural or Artificial Opening Endoscopic (ICD-10-PCS; CPT 45378; principal; 2022-12-06 10:00)
DX: R93.3 Abnormal findings on diagnostic imaging of other parts of digestive tract (principal); Z86.010 Personal history of colon polyps; K57.30 Diverticulosis of large intestine without perforation or abscess without bleeding; D12.0 Benign neoplasm of cecum
CPT/HCPCS: 45380; J2704

== ENCOUNTER → 2022-12-24 12:05 | Outpatient (CLI) | payer OTHER, SELFPAY ==
[2022-10-16 04:30] VITALS: BMI 24.1
[2022-12-24 13:35] LABS: Estimated Glomerular Filt Rate > 60 mL/min (>60)
== END ==
PROVIDERS: Family Provider Student in an Organized Health Care Education/Training Program; PCP Family Medicine; Referring Provider Surgery; Visit Provider Surgery
DX: K38.8 Other specified diseases of appendix (principal)
CPT/HCPCS: 36415; 82565

== ENCOUNTER → 2022-12-25 07:52 | Outpatient (CLI) | payer OTHER, SELFPAY ==
[2022-10-16 04:30] VITALS: BMI 24.1
--- NOTE | 2022-12-25 07:53 | DI.CT.S_ITS ---
PROCEDURE: CT ABDOMEN PELVIS W CON INDICATIONS: abdominal pain TECHNIQUE: After the administration of oral and intravenous contrast, axial sections were acquired from the lung bases to the pubic symphysis. Coronal and sagittal reformats were performed. For radiation dose reduction, the following was used: automated exposure control, adjustment of mA and/or kV according to patient size. COMPARISON:[facility], CT, CT ABDOMEN PELVIS WO/W CON, 01/15/2019, 13:14. [facility], CT, CT IVP A/P W/WO, 10/30/2022, 10:58. [facility], CT, CT ABDOMEN PELVIS W CON, 10/15/2022, 23:03. FINDINGS: Image quality: Excellent. Lung bases: Circumferential thickening of the lower esophagus. Heart: No significant findings. ABDOMEN: Liver: Scattered subcentimeter hypoattenuating lesions, too small to characterize by CT but probably small cysts.. Gallbladder: Cholelithiasis without wall thickening or adjacent fat stranding to suggest acute cholecystitis. Biliary ducts: Unremarkable. Pancreas: Unremarkable. Spleen: Unremarkable. Adrenal Glands: 1.4 centimeter right adrenal nodule, unchanged since 2019 and therefore statistically benign. Kidneys and Ureters: Punctate nonobstructing left-sided nephrolithiasis. No hydronephrosis. Stomach and Bowel: There is abnormal, diffuse enhancement throughout the appendix. Filling defect within the appendix measuring 1.1 x 1.9 centimeter (series 3, image 30). There is lack of enhancement of the distal appendix. Distal to this, there is a gas and fluid collection with a thick wall measuring 2.5 x 6.1 centimeter (series 2, image 72). Surrounding wall thickening of the adjacent large bowel, likely reactive. Colonic diverticulosis without evidence of diverticulitis. Peritoneum: No abnormal intraperitoneal fluid. No free air. Ventral Wall: No hernia. Abdominal Nodes: No retroperitoneal or mesenteric adenopathy by size criteria. Vessels: Aorta and inferior vena cava are normal in size. PELVIS: Pelvic Organs: Unremarkable. Bladder: Unremarkable. Pelvic Nodes: No enlarged lymph nodes. Miscellaneous: No inguinal hernias are seen. Bones: Grade 1 anterolisthesis of L4 on L5 due to facet arthrosis. IMPRESSION: Interval ruptured appendix, with a gas and fluid collection with marked wall thickening in the right lower quadrant measuring 2.5 x 6.1 centimeter. Possible mass within the appendix, measuring 1.1 x 1.9 centimeter. Unclear if this collection is a combination of malignancy and abscess, or simply abscess. Circumferential thickening of the lower esophagus. Findings discussed with Dr. Leon at time of dictation. Dictated by: Jorge Pfeiffer M.D. on 12/25/2022 at 11:37 Approved by: Jorge Pfeiffer M.D. on 12/25/2022 at 11:51
[2022-12-25 16:21] LABS: Add Manual Diff / Slide Review NO; Basophils Absolute Auto 0 /uL (0-100); Basophils Percent Auto 0.4 % (0-2); Eosinophils Absolute Auto 100 /uL (0-450); Eosinophils Percent Auto 0.9 % (2-4); Hematocrit 39.6 % (41-53); Hemoglobin 13.2 g/dL (13.5-17.5); Lymphocytes Absolute Auto 600 /uL (1100-4500); Lymphocytes Percent Auto 7.9 % (25-40); Mean Corpuscular HGB Conc 33.5 % (30-36); Mean Corpuscular Hemoglobin 30.6 PG (26-34); Mean Corpuscular Volume 91.4 fL (80-100); Monocytes Absolute Auto 700 /uL (0-900); Monocytes Percent Auto 8.8 % (3-14); Neutrophils Absolute Auto 6700 /uL (1500-7000); Platelet Count 250 X10^3/uL (150-400); Red Blood Cell Count 4.33 X10^6/uL (4.5-5.9); Red Cell Distribution Width 13.4 % (11.6-14.8); White Blood Cell Count 8.2 X10^3/uL (4.5-11.0)
[2022-12-25 16:27] LABS: INR 1.1 (0.9-1.3); Prothrombin Time 12.8 SECONDS (10.1-12.7)
[2022-12-25 16:38] LABS: Alanine Aminotransferase 18 IU/L (<50); Albumin 4.1 g/dL (3.5-5.0); Albumin Globulin Ratio 1.2 (1.0-2.8); Alkaline Phosphatase 78 U/L (38-126); Aspartate Aminotransferase 25 IU/L (17-59); BUN Creatinine Ratio 16.7 (6-22); Bilirubin Total 0.3 mg/dL (0.2-1.3); Blood Urea Nitrogen 14 mg/dL (9-20); Carbon Dioxide 26 mmol/L (22-32); Chloride 101 mmol/L (98-107); Estimated Glomerular Filt Rate > 60 mL/min (>60); Globulin 3.4 g/dL (1.7-4.1); Glucose 101 mg/dL (80-110); HEMOLYSIS < 15 (0-50); Potassium 4.3 mmol/L (3.4-5.1); Sodium 137 mmol/L (137-145); Total Protein 7.5 g/dL (6.3-8.2)
--- NOTE | 2023-01-14 13:50 | PC.NURSE ---
Addendum entered by Francia Fair R.N. 01/15/23 12:33: prog notes scanned in and LVM for Deidra RN about this Original Note: nurse navigator: Valeri at [facility] is sending pt back to [place] for Hemicolectomy per Dr. Francisco. This RN spoke to Deidra at [place] [facility] about this. Valeri will fax prog notes; as soon as notes received, Deidra will be contacted.
== END ==
PROVIDERS: Surgery; Family Provider Student in an Organized Health Care Education/Training Program; PCP Family Medicine; Referring Provider Surgery; Visit Provider Surgery
DX: K35.33 Acute appendicitis with perforation, localized peritonitis, and gangrene, with abscess (principal); K38.8 Other specified diseases of appendix; K80.20 Calculus of gallbladder without cholecystitis without obstruction; K57.90 Diverticulosis of intestine, part unspecified, without perforation or abscess without bleeding; M43.16 Spondylolisthesis, lumbar region; M47.816 Spondylosis without myelopathy or radiculopathy, lumbar region
CPT/HCPCS: 36415; 74177; 80053; 85025; 85610; 99215; Q9967

== ENCOUNTER 2022-12-27 13:30 | Observation (INO) | payer OTHER, SELFPAY ==
[2022-10-16 04:30] VITALS: BMI 24.1
[2022-12-27 13:37] VITALS: BP 135/70; PULSE 89; RESP 18; TEMP 36.5; O2SAT 99; BMI 23.1
[2022-12-27 14:31] LABS: Add Manual Diff / Slide Review NO; Basophils Absolute Auto 0 /uL (0-100); Basophils Percent Auto 0.6 % (0-2); Eosinophils Absolute Auto 100 /uL (0-450); Eosinophils Percent Auto 1.4 % (2-4); Hematocrit 40.8 % (41-53); Hemoglobin 13.9 g/dL (13.5-17.5); Lymphocytes Absolute Auto 1000 /uL (1100-4500); Lymphocytes Percent Auto 18.9 % (25-40); Mean Corpuscular Hemoglobin 31.1 PG (26-34); Mean Corpuscular Volume 91.4 fL (80-100); Monocytes Absolute Auto 400 /uL (0-900); Monocytes Percent Auto 7.8 % (3-14); Neutrophils Absolute Auto 3800 /uL (1500-7000); Neutrophils Percent Auto 71.3 % (50-75); Platelet Count 292 X10^3/uL (150-400); Red Blood Cell Count 4.47 X10^6/uL (4.5-5.9); White Blood Cell Count 5.3 X10^3/uL (4.5-11.0)
[2022-12-27 14:36] LABS: INR 1.1 (0.9-1.3); Prothrombin Time 12.8 SECONDS (10.1-12.7)
[2022-12-27 14:39] LABS: PTT Partial Thromboplastin Tim 36 SECONDS (26-36)
[2022-12-27 14:41] LABS: Alanine Aminotransferase 19 IU/L (<50); Albumin 4.3 g/dL (3.5-5.0); Albumin Globulin Ratio 1.3 (1.0-2.8); Alkaline Phosphatase 75 U/L (38-126); Aspartate Aminotransferase 29 IU/L (17-59); Bilirubin Total 0.3 mg/dL (0.2-1.3); Blood Urea Nitrogen 15 mg/dL (9-20); Calcium 9.6 mg/dL (8.4-10.2); Carbon Dioxide 27 mmol/L (22-32); Chloride 102 mmol/L (98-107); Estimated Glomerular Filt Rate > 60 mL/min (>60); Globulin 3.3 g/dL (1.7-4.1); Glucose 166 mg/dL (80-110); HEMOLYSIS < 15 (0-50); Lipase 188 U/L (23-300); Potassium 4.2 mmol/L (3.4-5.1); Sodium 138 mmol/L (137-145); Total Protein 7.6 g/dL (6.3-8.2)
[2022-12-27 14:42] LABS: Lactate (Lactic Acid) 1.9 mmol/L (0.7-2.1)
[2022-12-27 14:57] LABS: Procalcitonin 0.06 ng/mL (<0.5)
--- NOTE | 2022-12-27 15:09 | PC.NURSE ---
Pt presented to ED r/t appendix abscess w/ possible malignancy. Reviewed Dr. Leon's notes which indicate that pt was to go to [facility] for outpatient procedure. This has not been scheduled yet. Called You, director of DI who is going to attempt to get in contact w/ both Dr. Leon and radiology to further discuss.
[2022-12-27] MEDS: SODIUM CHLORIDE 0.9% 1,000 ML 1000 ML IV (16:06)
[2022-12-27] MEDS: PIPERACILLIN/TAZO 4.5 GM in SODIUM CHLORIDE 0.9% 100 ML IV (16:07)
[2022-12-27 16:13] VITALS: BP 123/66; PULSE 67; RESP 14; O2SAT 99
[2022-12-27] MEDS: metroNIDAZOLE 500 MG/100 ML PIGGYBACK 100 MG IV (16:58)
--- NOTE | 2022-12-27 17:14 | ED_ITS ---
HPI - Abdominal Pain General Chief Complaint: Abdominal Pain Stated Complaint: appendix burst sent by [facility] Time Seen by Provider: 12/27/22 16:50 Source: patient and family Mode of arrival: Ambulatory History of Present Illness HPI narrative: Patient here to be admitted to surgical services for likely ruptured appendix with gas and fluid collection. Patient has had surgical intervention throughout the summer. At the beginning of the summer in September patient here for bowel obstruction. Had abnormal reading on CT scan for appendix. Biopsy appendix was normal. Patient had colonoscopy and polyp biopsies were normal. However patient had CT scan imaging again December 25, 2022 and found to have ruptured appendix. Patient denies any fever chills. Patient in no distress at this time. Nontoxic appearing. Dr. Nava aware of these findings and would like to admit patient. Related Data Home Medications Medication Instructions Recorded Confirmed CHONDROITIN SULFATE/GLUCOSAMIN 1 tab PO Q DAY ##0 10/12/10 01/07/23 ([id number]) VITAMIN B COMPLEX (SUPER B COMPLEX) 1 cap PO Q DAY ##0 10/12/10 01/07/23 cholecalciferol (vitamin D3) 25 1,000 unit PO DAILY ##0 10/12/10 01/07/23 mcg (1,000 unit) capsule (Vitamin D3) desonide 0.05 % topical cream 1 applic topical DAILY PRN Eczema 10/24/21 01/07/23 spots buspirone 10 mg tablet 10 mg PO BID 12/27/22 01/07/23 simvastatin 80 mg tablet 80 mg PO DAILY 12/27/22 01/07/23 Previous Rx's Medication Instructions Recorded losartan 100 mg tablet 100 mg PO DAILY #90 tabs 06/13/22 plecanatide 3 mg tablet (Trulance) 3 mg PO DAILY #90 tabs 07/19/22 psyllium husk (with sugar) 3.4 1 tbsp PO BID #822 grams 12/06/22 gram/7 gram oral powder (Fiber (psyllium husk-sugar)) hydrocodone 5 mg-acetaminophen 325 1 tab PO Q8H PRN pain #20 tabs 12/29/22 mg tablet ibuprofen 200 mg capsule 400 mg PO Q6H PRN fever or pain 12/29/22 #60 caps Allergies Allergy/AdvReac Type Severity Reaction Status Date / Time No Known Drug Allergies Allergy Verified 01/07/23 10:30 Review of Systems Review of Systems Narrative: GENERAL: negative chills, fatigue, malaise, fever, sweats. HEENT: negative sinus pain, ear pain, sore throat RESPIRATORY: negative dyspnea, cough CARDIOVASCULAR: negative chest pain, palpitations GASTROINTESTINAL: negative nausea, vomiting, positive lower abdominal pain : negative dysuria, frequency, hematuria MUSCULOSKELETAL: negative muscle or bony pain SKIN: negative rash, skin lesions NEUROLOGIC: negative weakness, numbness ROS Unobtainable: All systems reviewed & are unremarkable except as noted in HPI and below Patient History Medical History Arthritis Cataract Chicken pox Colon polyps Hayfever Hearing loss Hemorrhoids History of colonic polyps (02/14/15) History of inguinal hernia (08/13/16) Hyperlipidemia Hypertension IBS (irritable bowel syndrome) Measles Mumps Prostate cancer (05/30/17) Recurrent sinusitis Surgical History Anesthesia History of colonoscopy (12/23/14) History of colonoscopy with polypectomy (09/22/09) History of prostate biopsy (05/30/17) History of right inguinal hernia repair (09/06/15) History of robot-assisted laparoscopic radical prostatectomy (08/12/17) History of tonsillectomy (~1949) Hx of appendectomy Status post cataract extraction of both eyes with insertion of intraocular lens Status post eye surgery (~2009) Status post hemorrhoidectomy (1975) Family History Father Cancer determined by prostate biopsy Diabetes mellitus High cholesterol Brother No problems noted. Family/Other Stroke Heart attack Family/Other No problems noted. Grandfather No problems noted. Grandmother No problems noted. Mother Ovarian cancer Grandfather Accident Grandmother No problems noted. Sister Multiple sclerosis Social History marital status: household members: spouse Smoking Status: Never smoker alcohol intake: current substance use type: does not use Smoking Status: Never smoker alcohol intake frequency: holidays/special occasions only Substance Use Type: does not use Exam Narrative Exam Narrative: GENERAL: in no distress, not toxic not dyspneic HEAD: Normocephalic. EYES: Pupils equal round ENT: Mucous membranes moist. NECK: Trachea midline. CARDIOVASCULAR: Regular rate and rhythm RESPIRATORY: Clear to auscultation. Breath sounds equal bilaterally. No wheezes, rales, or rhonchi. GASTROINTESTINAL: Abdomen soft, mild right lower quadrant tenderness. No pain out of proportion to exam. No peritoneal signs. No CVA tenderness. Bowel sounds are present EXTREMITIES: No gross deformities. BACK: No flank tenderness. NEURO: AOx4. SKIN: Warm and dry PSYCH: Not anxious, is cooperative Initial Vital Signs Initial Vital Signs: Vital Signs Temperature 97.7 F 12/27/22 13:37 Pulse Rate 89 12/27/22 13:37 Respiratory Rate 18 12/27/22 13:37 Blood Pressure 135/70 12/27/22 13:37 Pulse Oximetry 99 12/27/22 13:37 Oxygen Delivery Method Room Air 12/27/22 13:37 Course Orders Ordered: Discontinued Medications Acetaminophen (Acetaminophen 325 Mg Tablet) 975 mg PO Q6H [facility] Last Admin: 12/29/22 06:11 Dose: 975 mg Documented By: Admin: 12/29/22 00:29 Dose: 975 mg Documented By: Admin: 12/28/22 17:43 Dose: 975 mg Documented By: Admin: 12/28/22 14:21 Dose: 975 mg Documented By: Admin: 12/28/22 06:06 Dose: Not Given Documented By: Admin: 12/28/22 00:15 Dose: Not Given Documented By: Admin: 12/27/22 18:48 Dose: Not Given Documented By: CURRY Albuterol (Albuterol 2.5 Mg/3 Ml Neb (Adult)) 2.5 mg INH NOW PRN PRN Reason: Coughing, Wheezing, Dyspnea Atorvastatin Calcium (Atorvastatin 20 Mg Tablet) 80 mg PO BEDTIME [facility] Last Admin: 12/29/22 00:29 Dose: 80 mg Documented By: Admin: 12/27/22 21:20 Dose: 80 mg Documented By: JOSEPH Benzocaine (Benzocaine/Menthol 1 Binu Pkt) 1 each PO PRN PRN PRN Reason: Sore Throat Bupivacaine HCl 30 ml/ (Epinephrine HCl 0.15 mg) 0 ml INJ NOW ONE Stop: 12/28/22 11:39 Last Admin: 12/28/22 11:38 Dose: 4 ml Documented By: PF Docusate Sodium (Docusate 100 Mg Capsule) 100 mg PO BID PRN PRN Reason: Constipation Last Admin: 12/29/22 08:14 Dose: 100 mg Documented By: Admin: 12/28/22 16:49 Dose: 100 mg Documented By: MM Enoxaparin Sodium (Enoxaparin 40 Mg/0.4 Ml Syringe) 40 mg SUBCUT DAILY [facility] Last Admin: 12/28/22 09:05 Dose: Not Given Documented By: BV Fentanyl (Fentanyl 100 Mcg/2 Ml Inj) 0 mcg IV Q5M PRN PRN Reason: Pain, Moderate (4-6) Hydromorphone HCl (Hydromorphone 0.5 Mg Inj) 0.5 mg IV Q2H PRN PRN Reason: Pain, Severe (7-10) Hydromorphone HCl (Hydromorphone 1 Mg Inj) 0 mg IV Q5MIN PRN PRN Reason: Pain, Severe (7-10) Hydroxyzine Pamoate (Hydroxyzine Pamoate 25 Mg Capsule) 25 mg PO NOW PRN PRN Reason: Pain, Mild (1-3) Sodium Chloride (Normal Saline 0.9%) 1,000 mls @ 1,000 mls/hr IV BOLUS ONE Stop: 12/27/22 14:51 Last Infusion: 12/27/22 17:10 Dose: 0 mls/hr Documented By: Admin: 12/27/22 16:06 Dose: 1,000 mls/hr Documented By: DELORES Piperacillin Sod/Tazobactam (Sod 4.5 gm/ Sodium Chloride) 100 mls @ 200 mls/hr IV NOW ONE Stop: 12/27/22 14:32 Last Infusion: 12/27/22 16:40 Dose: 0 mls/hr Documented By: Admin: 12/27/22 16:07 Dose: 200 mls/hr Documented By: DELORES Metronidazole (Flagyl) 500 mg in 100 mls @ 100 mls/hr IV NOW ONE Stop: 12/27/22 17:48 Last Infusion: 12/27/22 17:39 Dose: 0 mls/hr Documented By: Admin: 12/27/22 16:58 Dose: 100 mls/hr Documented By: DELORES Sodium Chloride (Normal Saline 0.45%) 1,000 mls @ 75 mls/hr IV CONT XAVI Last Infusion: 12/29/22 06:30 Dose: 0 mls/hr Documented By: Admin: 12/29/22 06:12 Dose: 75 mls/hr Documented By: Infusion: 12/29/22 06:07 Dose: 75 mls/hr Documented By: Admin: 12/28/22 16:47 Dose: 75 mls/hr Documented By: Infusion: 12/28/22 10:00 Dose: 0 mls/hr Documented By: Admin: 12/27/22 18:49 Dose: 75 mls/hr Documented By: CURRY Cefazolin Sodium/Dextrose (Ancef) 100 mls @ 200 mls/hr IV Q8H X[facility]I Last Infusion: 12/28/22 11:15 Dose: 0 mls/hr Documented By: Admin: 12/28/22 09:38 Dose: 200 mls/hr Documented By: Infusion: 12/28/22 02:25 Dose: 100 mls/hr Documented By: Admin: 12/28/22 01:55 Dose: 200 mls/hr Documented By: Infusion: 12/27/22 21:08 Dose: 0 mls/hr Documented By: Admin: 12/27/22 18:48 Dose: 200 mls/hr Documented By: CURRY Metronidazole (Flagyl) 500 mg in 100 mls @ 100 mls/hr IV Q8H X[facility]I Last Infusion: 12/28/22 09:38 Dose: 0 mls/hr Documented By: Admin: 12/28/22 08:16 Dose: 100 mls/hr Documented By: Infusion: 12/28/22 01:55 Dose: 0 mls/hr Documented By: Admin: 12/28/22 00:18 Dose: 100 mls/hr Documented By: JOSEPH Lactated Ringer's (Lactated Ringers) 1,000 mls @ 42 mls/hr IV CONT XAVI Last Infusion: 12/28/22 12:42 Dose: 42 mls/hr Documented By: Admin: 12/28/22 12:00 Dose: 42 mls/hr Documented By: Infusion: 12/28/22 12:00 Dose: 42 mls/hr Documented By: Admin: 12/28/22 10:55 Dose: 42 mls/hr Documented By: BRUNA Lactated Ringer's (Lactated Ringers) 1,000 mls @ 120 mls/hr IV CONT XAVI Last Admin: 12/28/22 17:14 Dose: Not Given Documented By: CHARLES Ibuprofen (Ibuprofen 600 Mg Tablet) 600 mg PO Q6H [facility] Last Admin: 12/29/22 06:32 Dose: 600 mg Documented By: Admin: 12/29/22 00:30 Dose: 600 mg Documented By: Admin: 12/28/22 17:43 Dose: 600 mg Documented By: Admin: 12/28/22 14:21 Dose: 600 mg Documented By: Admin: 12/28/22 06:06 Dose: Not Given Documented By: Admin: 12/28/22 00:15 Dose: Not Given Documented By: Admin: 12/27/22 18:49 Dose: Not Given Documented By: CURRY Lorazepam (Lorazepam 2 Mg/Ml Inj) 0.5 mg IV NOW PRN PRN Reason: Anxiety Losartan Potassium (Losartan 50 Mg Tablet) 100 mg PO DAILY [facility] Meperidine HCl (Meperidine 50 Mg/Ml Inj) 25 mg IV PACUNOW PRN PRN Reason: Moderate pain or shivering Metoclopramide HCl (Metoclopramide 10 Mg/2 Ml Inj) 10 mg IV NOW PRN PRN Reason: Nausea And Vomiting Naloxone HCl (Naloxone 0.4 Mg/Ml Vial) 0.2 mg IV Q2MIN PRN PRN Reason: Opiate Reversal Ondansetron HCl (Ondansetron 4 Mg/2 Ml Inj) 4 mg IV NOW PRN PRN Reason: Nausea And Vomiting Ondansetron HCl (Ondansetron 4 Mg Odt) 4 mg SL NOW PRN PRN Reason: Nausea And Vomiting Ondansetron HCl (Ondansetron 4 Mg/2 Ml Inj) 4 mg IV Q8HR PRN PRN Reason: Nausea And Vomiting Ondansetron HCl (Ondansetron 4 Mg/2 Ml Inj) 4 mg IV NOW PRN PRN Reason: Nausea And Vomiting Last Admin: 12/28/22 12:40 Dose: 4 mg Documented By: CG Oxycodone HCl (Oxycodone Ir 5 Mg Tablet) 5 mg PO Q3H PRN PRN Reason: Pain, Moderate (4-6) Oxycodone HCl (Oxycodone Ir 10 Mg Tablet) 10 mg PO Q3H PRN PRN Reason: Pain, Severe (7-10) Oxycodone HCl (Oxycodone Ir 5 Mg Tablet) 5 mg PO PACUNOW PRN PRN Reason: Mild or moderate pain Last Admin: 12/28/22 12:40 Dose: 5 mg Documented By: ANDREI Sennosides (Sennosides 8.6 Mg Tablet) 8.6 mg PO BID PRN PRN Reason: Constipation Last Admin: 12/29/22 08:14 Dose: 8.6 mg Documented By: Admin: 12/28/22 16:49 Dose: 8.6 mg Documented By: MM Vital Signs Vital signs: Vital Signs - 8 hr 12/27/22 13:37 12/27/22 16:13 Temperature 97.7 F Pulse Rate 89 67 Respiratory Rate 18 14 Blood Pressure 135/70 123/66 Pulse Oximetry 99 99 Oxygen Delivery Method Room Air Room Air MDM - Abdominal Pain Lab Data 12/27/22 14:14 12/27/22 14:14 Labs: Lab Results 12/27/22 12/27/22 12/27/22 Range/Units 14:14 14:14 14:14 WBC 5.3 (4.5-11.0) X10^3/uL RBC 4.47 L (4.5-5.9) X10^6/uL Hgb 13.9 (13.5-17.5) g/dL Hct 40.8 L (41-53) % MCV 91.4 (80-100) fL MCH 31.1 (26-34) PG MCHC 34.0 (30-36) % RDW 13.0 (11.6-14.8) % Plt Count 292 (150-400) X10^3/uL Neut % (Auto) 71.3 (50-75) % Lymph % (Auto) 18.9 L (25-40) % Ida % (Auto) 7.8 (3-14) % Eos % (Auto) 1.4 L (2-4) % Baso % (Auto) 0.6 (0-2) % Neut # (Auto) 3800 (4781-9651) /uL Lymph # (Auto) 1000 L (3613-6571) /uL Ida # (Auto) 400 (0-900) /uL Eos # (Auto) 100 (0-450) /uL Baso # (Auto) 0 (0-100) /uL PT 12.8 H (10.1-12.7) SECONDS INR 1.1 (0.9-1.3) APTT 36 (26-36) SECONDS Sodium 138 (137-145) mmol/L Potassium 4.2 (3.4-5.1) mmol/L Chloride 102 (98-107) mmol/L Carbon Dioxide 27 (22-32) mmol/L BUN 15 (9-20) mg/dL Creatinine 0.79 (0.66-1.25) mg/dL Estimated GFR > 60 (>60) mL/min BUN/Creatinine Ratio 19.0 (6-22) Glucose 166 H (80-110) mg/dL Lactate (0.7-2.1) mmol/L Calcium 9.6 (8.4-10.2) mg/dL Total Bilirubin 0.3 (0.2-1.3) mg/dL AST 29 (17-59) IU/L ALT 19 (<50) IU/L Alkaline Phosphatase 75 (38-126) U/L Total Protein 7.6 (6.3-8.2) g/dL Albumin 4.3 (3.5-5.0) g/dL Globulin 3.3 (1.7-4.1) g/dL Albumin/Globulin Ratio 1.3 (1.0-2.8) Lipase 188 (23-300) U/L Procalcitonin 0.06 (<0.5) ng/mL Urine Color Urine Appearance Urine pH (4.5-8.0) Ur Specific [place] (1.000-1.035) Urine Protein (Negative) Urine Glucose (UA) (Negative) g/dL Urine Ketones (NEGATIVE) Urine Occult Blood (Negative) Urine Nitrate (Negative) Urine Bilirubin (NEGATIVE) Urine Urobilinogen (0.2) E.U./dL Ur Leukocyte Esterase (NEGATIVE) Urine RBC (0-5/HPF) Urine WBC (0-5/HPF) Ur Squamous Epith Cells (0-5/HPF) Urine Bacteria (None) Ur Culture Indicated? 12/27/22 12/27/22 Range/Units 14:14 17:04 WBC (4.5-11.0) X10^3/uL RBC (4.5-5.9) X10^6/uL Hgb (13.5-17.5) g/dL Hct (41-53) % MCV (80-100) fL MCH (26-34) PG MCHC (30-36) % RDW (11.6-14.8) % Plt Count (150-400) X10^3/uL Neut % (Auto) (50-75) % Lymph % (Auto) (25-40) % Ida % (Auto) (3-14) % Eos % (Auto) (2-4) % Baso % (Auto) (0-2) % Neut # (Auto) (9738-9583) /uL Lymph # (Auto) (4356-9029) /uL Ida # (Auto) (0-900) /uL Eos # (Auto) (0-450) /uL Baso # (Auto) (0-100) /uL PT (10.1-12.7) SECONDS INR (0.9-1.3) APTT (26-36) SECONDS Sodium (137-145) mmol/L Potassium (3.4-5.1) mmol/L Chloride (98-107) mmol/L Carbon Dioxide (22-32) mmol/L BUN (9-20) mg/dL Creatinine (0.66-1.25) mg/dL Estimated GFR (>60) mL/min BUN/Creatinine Ratio (6-22) Glucose (80-110) mg/dL Lactate 1.9 (0.7-2.1) mmol/L Calcium (8.4-10.2) mg/dL Total Bilirubin (0.2-1.3) mg/dL AST (17-59) IU/L ALT (<50) IU/L Alkaline Phosphatase (38-126) U/L Total Protein (6.3-8.2) g/dL Albumin (3.5-5.0) g/dL Globulin (1.7-4.1) g/dL Albumin/Globulin Ratio (1.0-2.8) Lipase (23-300) U/L Procalcitonin (<0.5) ng/mL Urine Color Yellow Urine Appearance Clear Urine pH 6.5 (4.5-8.0) Ur Specific [place] 1.010 (1.000-1.035) Urine Protein Negative (Negative) Urine Glucose (UA) Negative (Negative) g/dL Urine Ketones Negative (NEGATIVE) Urine Occult Blood Trace-intact (Negative) Urine Nitrate Negative (Negative) Urine Bilirubin Negative (NEGATIVE) Urine Urobilinogen 0.2 (0.2) E.U./dL Ur Leukocyte Esterase Negative (NEGATIVE) Urine RBC 0-1/hpf (0-5/HPF) Urine WBC None seen (0-5/HPF) Ur Squamous Epith Cells 0-1 /hpf (0-5/HPF) Urine Bacteria None seen (None) Ur Culture Indicated? Cult not indicated Imaging Data CT scan - abdomen/pelvis: Radiologist's Impression: [address] [address] [address] Scan Report Signed Patient: Sergio Mackay MR#: [id number] : 1945 Acct:[id number] Age/Sex: 77 / M Date of Service: 12/25/22 Loc: CT Accession Number: [id number] ?? Procedure: CT abdomen pelvis w con Ordering Provider: Sneha Guerra PROCEDURE:? CT ABDOMEN PELVIS W CON ? INDICATIONS:? abdominal pain ? TECHNIQUE:? After the administration of oral and intravenous contrast, axial sections were acquired from the lung bases to the pubic symphysis.? Coronal and sagittal reformats were performed.? For radiation dose reduction, the following was used:? automated exposure control, adjustment of mA and/or kV according to patient size.? ? COMPARISON:[facility], CT, CT ABDOMEN PELVIS WO/W CON, 01/15/2019, 13:14.? [facility], CT, CT IVP A/P W/WO, 10/30/2022, 10:58.? [facility], CT, CT A BDOMEN PELVIS W CON, 10/15/2022, 23:03. ? FINDINGS:? Image quality:? Excellent.? ? Lung bases:? Circumferential thickening of the lower esophagus. Heart:? No significant findings. ? ? ABDOMEN: Liver:? Scattered subcentimeter hypoattenuating lesions, too small to characterize by CT but probably small cysts..? ? Gallbladder:? Cholelithiasis without wall thickening or adjacent fat stranding to suggest acute cholecystitis.? ? Biliary ducts:? Unremarkable.? ? Pancreas:? Unremarkable.? ? Spleen:? Unremarkable.? ? Adrenal Glands:? 1.4 centimeter right adrenal nodule, unchanged since 2019 and therefore statistically benign. Kidneys and Ureters:? Punctate nonobstructing left-sided nephrolithiasis.? No hydronephrosis. ? Stomach and Bowel:? There is abnormal, diffuse enhancement throughout the appendix.? Filling defect within the appendix measuring 1.1 x 1.9 centimeter (series 3, image 30).? There is lack of enhancement of the distal appendix.? Distal to this, there is a gas and fluid collection with a thick wall measuring 2.5 x 6.1 centimeter (series 2, image 72).? Surrounding wall thickening of the adjacent large bowel, likely reactive. Colonic diverticulosis without evidence of diverticulitis. Peritoneum:? No abnormal intraperitoneal fluid.? No free air.? ? Ventral Wall: ? No hernia.? Abdominal Nodes:? No retroperitoneal or mesenteric adenopathy by size criteria.? Vessels:? Aorta and inferior vena cava are normal in size.? ? PELVIS: Pelvic Organs:? Unremarkable.? ? Bladder:? Unremarkable.? ? Pelvic Nodes: No enlarged lymph nodes.? Miscellaneous: No inguinal hernias are seen. ? ? ? Bones:? Grade 1 anterolisthesis of L4 on L5 due to facet arthrosis.? ? ? IMPRESSION:? Interval ruptured appendix, with a gas and fluid collection with marked wall thickening in the right lower quadrant measuring 2.5 x 6.1 centimeter.? Possible mass within the appendix, measuring 1.1 x 1.9 centimeter.? Unclear if this collection is a combination of malignancy and abscess, or simply abscess. ? Circumferential thickening of the lower esophagus. ? ? Findings discussed with Dr. Leon at time of dictation. ? Dictated by: Jorge Pfeiffer M.D. on 12/25/2022 at 11:37 ? ? Approved by: Jorge Pfeiffer M.D. on 12/25/2022 at 11:51 ? MDM Narrative Medical decision making narrative: Patient here to be admitted to surgical services for likely ruptured appendix with gas and fluid collection. Patient has had surgical intervention throughout the summer. At the beginning of the summer in September patient here for bowel obstruction. Had abnormal reading on CT scan for appendix. Biopsy appendix was normal. Patient had colonoscopy and polyp biopsies were normal. However patient had CT scan imaging again December 25, 2022 and found to have ruptured appendix. Patient denies any fever chills. Patient in no distress at this time. Nontoxic appearing. Dr. Nava aware of these findings and would like to admit patient After history and exam MDM CC: Abdominal pain Complicating co-morbidities: None Data collected from: Patient and Medical records reviewed: Patient seen here this summer for abdominal pain Differential considered: Includes but not limited to appendicitis ruptured appendix intra-abdominal abscess Exam documented above, pertinent findings include: Mild lower abdominal tenderness Lab Test results independently reviewed as above. Pertinent findings: WBC 5.3 hemoglobin 13.9 INR 1.1 sodium 138 potassium 4.2 Imaging studies independently reviewed: CT scan abdomen pelvis ruptured appendix with fluid collection Consultations: 5:[address] Nava, general surgeon, she will admit patient 5:[address] Guerra now in the ER.... She will see patient in it admit patient Treatments: Magdalene Mckee Re-evaluations: Reviewed patient results and treatment plan. They agree for admission. Discussion: Appropriate for admission. IV antibiotics have been started. General surgery Services here in the department to admit patient Diagnosis: Ruptured appendix Discharge Plan Departure Patient Disposition: Admitted As Inpatient Clinical Impression: Rupture of appendix Admit Date/Time: 12/27/22 17:14 Admit Provider: Sneha Guerra
[2022-12-27 17:15] VITALS: BP 122/60; RESP 14; O2SAT 97
[2022-12-27 17:24] LABS: Appearance Urine UA CLEAR; Bilirubin Urine UA NEGATIVE (NEGATIVE); Color Urine UA YELLOW; Glucose Urine UA NEGATIVE (Negative); Ketones Urine UA NEGATIVE (NEGATIVE); Leukocyte Esterase Urine UA NEGATIVE (NEGATIVE); Nitrite Urine UA NEGATIVE (Negative); Occult Blood Urine UA TRACE-INTACT (Negative); Protein Urine UA NEGATIVE (Negative); Urobilinogen Urine UA 0.2 E.U./dL (0.2); pH Urine UA 6.5 (4.5-8.0)
[2022-12-27 17:39] LABS: Bacteria Urine None Seen; RBC Urine 0-1/HPF (0-5/HPF); Squamous Epithelial Cell Urine 0-1 /HPF (0-5/HPF); WBC Urine None Seen (0-5/HPF)
[2022-12-27 17:40] LABS: Culture Indicated Urine Cult Not Indicated
--- NOTE | 2022-12-27 17:47 | P.HP_ITS ---
History of Present Illness History of Present Illness Date Patient Seen: 12/27/22 Time Patient Seen: 17:47 Chief complaint: appendix burst sent by [facility] Narrative: Mr. Sergio Mackay is a 77-year-old male known to me and also has seen Dr. Barger. His troubles began on October 16 when he came to the emergency room with several days of abdominal pain, nausea,bloating and intermittent diarrhea.?He felt lightheaded and sat down he did not strike his head or blackout.? At admission afebrile vital signs are within normal limits.? White blood cell count initially 14 after fluid resuscitation down to 10.7.? Remainder of his laboratory studies were within normal limits.? CT abdomen pelvis demonstrates dilated loops of large and small bowel no free air or free fluid, suggestive of a partial small bowel obstruction. His acute symptoms resolved and he was discharged with follow-up. He was seen [facility] by me on November [address] Painter had sent him to me after reviewing his CT scan from that hospitalization that revealed a mass on his appendix. In addition at that time he had some urinary symptoms was referred to urologist and had a cystoscopy as well as some odd ?tingly and lightheaded symptoms in addition. He had some GI symptoms including occasional constipation, bloating, alternating with diarrhea along with occasional right lower quadrant abdominal pain that he attributes to a diagnosis of ?IBS? and was due for a colonoscopy. We arranged a colonoscopy that was completed on December 06, 2021 within the week afterwards when the pathology results were available; I advised him to get a CT scan, to recheck the area in the appendix due to a month having elapsed. The next time a CT scan was done was December 25, 2022. He was seen on this day in the [facility] by Dr. Huy Leon. It is unclear exactly what happened thereafter but there was some confusion about draining the fluid c ollection seen at [facility] versus treatment at [facility] and ultimately he was advised to come to the emergency room today. Overall he has been having ongoing lower abdominal pain and cramping similar to his usual symptoms though he states that this has been getting worse he also endorsed a low-grade fever several days prior and weight loss because of his symptoms over the last few weeks. [facility] Medical History Arthritis Cataract Chicken pox Colon polyps Hayfever Hearing loss Hemorrhoids History of colonic polyps (02/14/15) History of inguinal hernia (08/13/16) Hyperlipidemia Hypertension IBS (irritable bowel syndrome) Measles Mumps Prostate cancer (05/30/17) Recurrent sinusitis Surgical History Anesthesia History of colonoscopy (12/23/14) History of colonoscopy with polypectomy (09/22/09) History of prostate biopsy (05/30/17) History of right inguinal hernia repair (09/06/15) History of robot-assisted laparoscopic radical prostatectomy (08/12/17) History of tonsillectomy (~1949) Status post cataract extraction of both eyes with insertion of intraocular lens Status post eye surgery (~2009) Status post hemorrhoidectomy (1975) Family History Father Cancer determined by prostate biopsy Diabetes mellitus High cholesterol Brother No problems noted. Family/Other Stroke Heart attack Family/Other No problems noted. Grandfather No problems noted. Grandmother No problems noted. Mother Ovarian cancer Grandfather Accident Grandmother No problems noted. Sister Multiple sclerosis Social History marital status: household members: spouse Smoking Status: Never smoker alcohol intake: current substance use type: does not use Meds Home Medications and Allergies Home Medications Medication Instructions Recorded Confirmed Type CHONDROITIN SULFATE/GLUCOSAMIN 1 tab PO Q DAY ##0 10/12/10 12/25/22 History ([id number]) VITAMIN B COMPLEX (SUPER B COMPLEX) 1 cap PO Q DAY ##0 10/12/10 12/25/22 History cholecalciferol (vitamin D3) 25 1,000 unit PO DAILY ##0 10/12/10 12/25/22 History mcg (1,000 unit) capsule (Vitamin D3) desonide 0.05 % topical cream 1 applic topical DAILY PRN Eczema 10/24/21 12/25/22 History spots losartan 100 mg tablet 100 mg PO DAILY #90 tabs 06/13/22 12/25/22 Rx plecanatide 3 mg tablet (Trulance) 3 mg PO DAILY #90 tabs 07/19/22 12/25/22 Rx psyllium husk (with sugar) 3.4 1 tbsp PO BID #822 grams 12/06/22 12/25/22 Rx gram/7 gram oral powder (Fiber (psyllium husk-sugar)) ciprofloxacin HCl 500 mg tablet 500 mg PO Q12H #14 tabs 12/25/22 Rx metronidazole 500 mg tablet 500 mg PO Q12H #14 tabs 12/25/22 Rx Allergies Allergy/AdvReac Type Severity Reaction Status Date / Time No Known Drug Allergies Allergy Verified 12/27/22 13:37 Exam Vital Signs (past 8 hours): - 12/27/22 13:37 12/27/22 16:13 Temperature 97.7 F Pulse Rate 89 67 Respiratory Rate 18 14 Blood Pressure 135/70 123/66 Pulse Oximetry 99 99 Oxygen Delivery Method Room Air Room Air Oxygen Delivery Method Room Air Const General: cooperative, healthy appearing, comfortable and No acute distress Nutritional Appearance: average body habitus and well nourished Orientation: alert, awake and oriented x3 HENMT Head: normal to inspection Mouth: moist mucous membranes Eyes General: appearance normal, both eyes and all related structures Resp Effort & Inspection: normal respiratory effort and able to speak in complete sentences Cardio Pulses: radial pulses present GI Palpation: soft and tender (Mild right lower quadrant tenderness) Objective Labs 12/27/22 14:14 12/27/22 14:14 Labs: Laboratory Results - last 24 hr 12/27/22 12/27/22 12/27/22 14:14 14:14 14:14 WBC 5.3 RBC 4.47 L Hgb 13.9 Hct 40.8 L MCV 91.4 MCH 31.1 MCHC 34.0 RDW 13.0 Plt Count 292 Neut % (Auto) 71.3 Lymph % (Auto) 18.9 L [place] % (Auto) 7.8 Eos % (Auto) 1.4 L Baso % (Auto) 0.6 Neut # (Auto) 3800 Lymph # (Auto) 1000 L [place] # (Auto) 400 Eos # (Auto) 100 Baso # (Auto) 0 PT 12.8 H INR 1.1 APTT 36 Sodium 138 Potassium 4.2 Chloride 102 Carbon Dioxide 27 BUN 15 Creatinine 0.79 Estimated GFR > 60 BUN/Creatinine Ratio 19.0 Glucose 166 H Lactate Calcium 9.6 Total Bilirubin 0.3 AST 29 ALT 19 Alkaline Phosphatase 75 Total Protein 7.6 Albumin 4.3 Globulin 3.3 Albumin/Globulin Ratio 1.3 Lipase 188 Procalcitonin 0.06 Urine Color Urine Appearance Urine pH Ur Specific [place] Urine Protein Urine Glucose (UA) Urine Ketones Urine Occult Blood Urine Nitrate Urine Bilirubin Urine Urobilinogen Ur Leukocyte Esterase Urine RBC Urine WBC Ur Squamous Epith Cells Urine Bacteria Ur Culture Indicated? 12/27/22 12/27/22 14:14 17:04 WBC RBC Hgb Hct MCV MCH MCHC RDW Plt Count Neut % (Auto) Lymph % (Auto) [place] % (Auto) Eos % (Auto) Baso % (Auto) Neut # (Auto) Lymph # (Auto) [place] # (Auto) Eos # (Auto) Baso # (Auto) PT INR APTT Sodium Potassium Chloride Carbon Dioxide BUN Creatinine Estimated GFR BUN/Creatinine Ratio Glucose Lactate 1.9 Calcium Total Bilirubin AST ALT Alkaline Phosphatase Total Protein Albumin Globulin Albumin/Globulin Ratio Lipase Procalcitonin Urine Color Yellow Urine Appearance Clear Urine pH 6.5 Ur Specific [place] 1.010 Urine Protein Negative Urine Glucose (UA) Negative Urine Ketones Negative Urine Occult Blood Trace-intact Urine Nitrate Negative Urine Bilirubin Negative Urine Urobilinogen 0.2 Ur Leukocyte Esterase Negative Urine RBC 0-1/hpf Urine WBC None seen Ur Squamous Epith Cells 0-1 /hpf Urine Bacteria None seen Ur Culture Indicated? Cult not indicated Assessment & Plan Assessment and plan (1) Rupture of appendix: Status: Acute (2) Mass of appendix: Status: Acute (3) Pelvic fluid collection: Status: Acute Assessment & Plan narrative: I met with Mr. Mackay and his who is at the bedside this evening in the emergency room. He overall does not feel very unwell and does ask if he may be discharged home to follow up as an outpatient. He is worried about his who has early-onset dementia and often gets lost. He does trust that she will be able to get home if she can find the car with our assistance and will return in the morning. I discussed with him that I believe the next step is to do an appendectomy and take a look at this fluid collection possibly drain it laparoscopically and place a drain. The appendix needs to be removed for the sake of determining the pathology here. Depending on the findings either intraoperatively or on the pathology report if there is a cancer et hemicolectomy maybe recommended but really it is there is no way to know whether this is a chronic appendicitis or something else and how serious it is without obtaining some additional informat ion by 1. Looking with eyes inside the abdomen and 2. Looking at the appendix and sending it to the pathologist to look at under a microscope as well. Basically an exploratory laparoscopy and appendectomy is what I would recommend. I also discussed with him high likelihood of extending the incision to an open laparotomy if needed depending on what was seen intraoperatively. I also advised him that Dr. Nava is the surgeon on-call and that she would be leading the surgical intervention however I will try to be present as an home care assistant tomorrow if possible. I have discussed the case with her and she will be in to see him in the morning and provide additional recommendations. For the time being I will give him a regular diet IV fluids NPO after midnight and IV antibiotics as well as pain and nausea control medications. It took some convincing but he agreed to be admitted to the hospital tonight.
[2022-12-27 17:49] VITALS: BMI 23.1
[2022-12-27 18:06] VITALS: BMI 23.1
[2022-12-27 18:15] VITALS: BP 134/72; PULSE 60; RESP 18; TEMP 36.5; O2SAT 99
--- NOTE | 2022-12-27 18:41 | PC.NURSE ---
Patient arrived from ED at approximately 1800. A&OX4 on RA VSS,afebrile. Flagyl running. Patient able to eat kitchen snacks and is aware he will be NPO at midnight.Admission assessment completed. IVF 1/2 NS at 75ml/hour. He denies n/v, abdominal pain, or dizziness. He call appropriately for assistance, call light in reach and bed alarm on.
[2022-12-27] MEDS: CEFAZOLIN 2 GM/100 ML PREMIX 100 ML IV (18:48)
[2022-12-27] MEDS: SODIUM CHLORIDE 0.45% 1,000 ML 75 ML IV (18:49)
[2022-12-27 20:00] VITALS: BP 122/66; PULSE 66; RESP 18; TEMP 37.2; O2SAT 98
[2022-12-27] MEDS: ATORVASTATIN 20 MG TABLET 80 MG PO (21:20)
[2022-12-28] VITALS (10 sets, daily range): BP systolic 115–152; BP diastolic 59–78; PULSE 63–984; RESP 11–18; TEMP 36.5–37.1; O2SAT 92–100; BMI 23.1
--- NOTE | 2022-12-28 | PATH_ITS ---
[facility] Accession Number: [id number] No. of containers..01 Tissue . 01 Material submitted: . appendix - APPENDIX . 01 Diagnosis: Appendix, Appendectomy: Invasive adenocarcinoma; see cancer case summary. . . Cancer Case Summary - Appendix . Specimen Procedure: Appendectomy. . Tumor Tumor site: Appendix, not otherwise specified. Histologic type: Adenocarcinoma. Histologic grade: G2, moderately differentiated. Tumor size: 2.3 cm in greatest dimension. Tumor deposits: Present. Number of tumor deposits: 1. Tumor extent: Tumor invades visceral peritoneum. Lymphatic/vascular invasion: Not identified. Perineural invasion: Not identified. . Margins Margin status for invasive carcinoma: All margins negative for invasive carcinoma. Distance from invasive carcinoma to closest mesernteric margin: Greater than 10 mm. Margin status for noninvasive tumor: All margins negative for noninvasive tumor. . Regional lymph nodes Regional lymph node status: Not applicable. Regional lymph node comment: A single lymph node candidate is identified in the periappendiceal adipose tissue. The histologic findings are most consistent with a tumor deposit. . pTNM classification (AJCC 9th version) pT category: pT4a. pN category: pN1c. . Additional findings: None identified. [facility] 01/06/2023 1344 Local . 01 Comment: As part of routine quallity assurance, Dr. Ervin has reviewed this case and agrees with the diagnosis above. . The findings in this case were discussed between the physician crayon painter Dr. Morales and Dr. Cano on 01/03/2023. . 01 Electronically signed: . Moise Cano MD, PhD, Pathologist NPI- [id number] . 01 Gross description: . The specimen is received in formalin labeled with the patient's name, , and appendix consists of a previously opened appendix measuring 7.2 cm in length by 3.2 cm in approximate circumference. The longitudinal full thickness defect measures 6.1 cm and was confirmed to have been done postoperatively in the OR via phone call with Dr. Nava. The staple line is removed and that margin is inked blue. The edge of the defect is inked orange and the remaining external surface is inked green. The mucosa has a gaspar exophytic mass measuring 2.3 x 2.2 x 1.2 cm located 2.2 cm from the blue-inked margin. The lumen also contains a moderate amount of clear thick mucoid material with no fecaliths identified. Sectioning reveals the lesion to extend through the mucosa all the way to the distal tip across an area measuring 4.5 x 2.7 cm. The lesion extends through the wall and into the pericolonic fat and grossly abuts the green-inked serosa. A single pale gaspar, presumed lymph node candidate is identified measuring 0.9 cm in greatest dimension. A minimal amount of edematous but possibly normal mucosa is identified near the margin. The specimen is serially sectioned from the proximal margin to the distal tip into eight slices. Roster Clerk sections are submitted as follows: A1: Lesion to perpendicular blue margin. A2-A3: Entire slice 3. A4-A5: Composite slice5 to include extension into the pericolonic fat. A6-A7: Composite slice 7 to include extension into the pericolonic fat. A8: Rep slice 8, distal tip perpendicular. A9: Roster Clerk most normal full thickness sections. A10: Roster Clerk lymph node. Case reviewed with Dr. Wilson and Dr. Cano. ([id number]) /MRV 12/31/20221945 Local . 01 Pathologist provided ICD-10: C18.1 . 01 CPT . 590840 Specimen Comment: A courtesy copy of this report has been sent to [phone] Performed at: 01 [facility] [address] [place] [address], [place], [place] [id number] MD Jaime Ervin MD Phone: [phone]
[2022-12-28] MEDS: metroNIDAZOLE 500 MG/100 ML PIGGYBACK 100 MG IV ×2 (00:18→08:16)
[2022-12-28] MEDS: CEFAZOLIN 2 GM/100 ML PREMIX 100 ML IV ×2 (01:55→09:38)
--- NOTE | 2022-12-28 09:52 | PM.PREOP ---
Pre-operative Note COVID-19 COVID-19 status: Negative Interval Note History & Physical reviewed/Exam performed by Physician: Yes Changes to H&P: No
[2022-12-28] MEDS: LACTATED RINGERS 1,000 ML 42 ML IV ×2 (10:55→12:00)
--- NOTE | 2022-12-28 11:05 | CM.DANOTE ---
DCP Brief Assessment Note: Patient is a 77yo M here following potential appendix burst. PCP Madina Cheung and self pay SERVICE EMPLOYEE reviewed EMR. Per EMR, patient was here in September for a potential bowel obstruction. D/c'd home with no needs at the time. main concern was future planning for caregiving for who was starting to show signs of dementia. In September, could assist with d/c needs but was starting to mentally decline. Patient has brother in town that could assist with d/c needs. In September, SERVICE EMPLOYEE provided senior resources booklet for caregiving information for spouse. Unable to meet with patient due to patient going to surgery. Appendix did not burst, Elijah performing lap appy. Per last stay here, patient was A/Ox4, A/I/drives self, and was ambulatory with no DME at baseline. Regularly hikes. Per RN, patient wants to d/c home to as soon as possible. Per RN, patient independent and not in a lot of pain at this time. Plan: likely d/c home when medically stable. Transport with brother likely? CM team will continue to follow closely with needs post op. HIEU Valdez Discharge Planning/Care Management CM Discharge Assessment Start: 12/28/22 11:00 Freq: Status: Active Protocol: Document 12/28/22 11:00 (Rec: 12/28/22 11:05 [id number]) Discharge Planning Assessment Assigned Satellite Television Installer HIEU Greer DPOA/Assigned Designee Name Ana M () Contact Information [phone] Advance Directives? Yes Advance Directives on File No History Provided By Medical Record Prior Living Arrangements House Household Members spouse Type of transporation used prior to Drives own vehicle admit Independent with ADL's Yes Is patient alert and oriented? Yes Discharge Plan Home Transportation Arrangement likely brother will transport? Whiteboard Updated in Patient Room with No name and ext. # of Satellite Television Installer Review Status In Process Next Review Type Continued Stay Review
--- NOTE | 2022-12-28 11:31 | SUR.OPER ---
Supine on padded OR bed, head on pillow, right arm secured on padded arm boards at <90 degrees abduction, left arm padded with gel pad and tucked at side, legs uncrossed, safety belt at thigh, tape over blanket over lower legs.
[2022-12-28] MEDS: BUPIVACAINE 0.25% (PF) 30 ML, EPINEPHrine 0.15 MG INJ (11:38)
--- NOTE | 2022-12-28 11:46 | SUR.OPER ---
Patient voided at 1055 prior to entering Operating Room at 1100. Patients glasses placed in black glass case with patient ID label and kept in PACU with ROOM COOLER INSTALLER.
--- NOTE | 2022-12-28 12:16 | PM.OP.1 ---
Operative Date/Time/Diagnoses Date of procedure: 12/28/22 Time of procedure: 12:16 Pre-op diagnosis: Ruptured appendicitis versus appendiceal mass Post-op diagnosis: other Procedure & Clinicians Procedure: Preop diagnosis: Ruptured appendicitis versus mass Postop diagnosis: Same Operative procedure: Laparoscopic appendectomy with lysis of adhesions Surgeon: mehran Nava MD assistant manager quality management: Sneha Guerra MD Findings: Enlarged appendix due to adhesive disease, associated abscess Procedure: Patient placed in a supine position. Prepped and draped sterile fashion to expose his abdomen. Supraumbilical port site was placed using open technique a 12 mm port. Insufflation began all other ports were placed under direct vision including a 5 mm port in the suprapubic area and a 5 mm port in the left lateral abdomen. There was clear dilated bowel in the pelvis along with adhesive disease related to prior laparoscopic hernia repair of the right inguinal region predominantly. Cecum could be located and the base of the appendix was normal in nature however there was a adhesive band stretched across the base causing obstruction of the appendix itself. Blunt dissection along with scissors was used to mobilize the appendix from the base to the tip where it was adherent to again the right-sided inguinal hernia mesh. Abscess cavity was entered into and drained. Unclear whether there was separation between abscess and existing hernia mesh but clearly no gross evidence of infection of the mesh itself. Once the appendix was fully mobilized and adhesions taken down of the cecum and base of the appendix, the appendiceal mesentery was taken down with electrocautery. A TERRANCE stapling device was used amputate the appendix at the base. Appendix was placed into an Endo-Catch bag and pulled through the infraumbilical port site intact. I surveyed the abdomen for hemostasis. Suctioned and irrigated to a clear return. And I had previously placed a Surgicel patch onto the area of the pelvis where the abscess and appendix had been adhered, due to oozing during the procedure. A 15 Chato drain was placed into the pelvis via the suprapubic port site. Sutured to the skin with a 2-0 nylon. We then removed all ports and began closure. Closure consisted of interrupted 0 Vicryl fascial closure of the supraumbilical port site. Skin was closed with a running 4-0 Vicryl. Steri-Strips and sterile dressings were placed. Patient was awakened, extubated, taken to recovery room in stable condition. Needle, instrument, sponge counts were correct. Blood loss: 15 mL Specimen: Appendix Same procedure as scheduled: Yes Indications: Ruptured appendix with abscess Surgeon: Franchesca Nava Web Development Manager: Sneha Guerra Click Yes if Unassisted: No Anesthesia Type: General and Local Operative Notes Findings: Ruptured appendix, appendiceal obstruction due to adhesive disease. Closure Type: primary Specimen(s): other (Appendix) Applied: drain(s) (15 Mauritanian Chato drain) Estimated Blood Loss (mL): 15 Blood products transfused: none Procedure in detail: See above Complications: none Post-operative Condition: stable Disposition: PACU
[2022-12-28] MEDS: OXYCODONE IR 5 MG TABLET PO (12:40)
[2022-12-28] MEDS: ONDANSETRON 4 MG/2 ML INJ IV (12:40)
--- NOTE | 2022-12-28 12:55 | SUR.PHASEI ---
Lower incision site where CHAVA drain inserts showing saturation; removed dressing and replaced/reinforced. Tolerated well.
[2022-12-28] MEDS: IBUPROFEN 600 MG TABLET PO ×2 (14:21→17:43)
[2022-12-28] MEDS: ACETAMINOPHEN 325 MG TABLET 975 MG PO ×2 (14:21→17:43)
--- NOTE | 2022-12-28 15:06 | CM.DPC ---
DCP Cont: SW met bedside with pt and explained role and he confirms he is still quite groggy from the anesthesia from Lap Appe and initially was planning to try to discharge by this evening but currently with still feeling sedated he likely plans to remain overnight. Pt confirms since his last admission in September 2022 this year, he remains active and independent with ADLs and does not use DME for ambulation. Pt manages the household as his spouse has dementia and SW inquired if pt utilized any of the resources provided to him by SW during last admission in September a couple months ago towards setting up more supports and services to better address his spouse's cognitive impairment. Pt states he feels he continues to meet her needs well and mostly her short term memory and he has to repeat things to her. Otherwise she completes her own ADLs and unfortunately still drives when pt is in the hospital. SW expressed concern for this and pt currently too groggy to have indepth discussion regarding his 's LTC needs. Pt denies any hx of SNF or HH for himself and does not anticipate any needs at d/c and does not feel he will be homebound or need a HH RN at d/c. Preference is home with spouse and confirms his brother remains local and supportive but unclear how available or active his brother is due to pt's sedation. Plan: SW to follow closely in the AM to confirm pt tolerating diet and ambulating independently and pain controlled to confirm safe d/c to home with demented spouse and local family. HIEU Harris
--- NOTE | 2022-12-28 16:35 | PC.NURSE ---
1000: left floor for surgery. 1300: returned from surgery, bedside report from Shantal. patient w/ 2 lap sites, yemi drain. dressings are cdi. patient denies pain/discomfort. IVF and SCDs placed. urinal placed at bedside. patient reports feeling groggy and wants to rest. 1430: stool meds added to med list, PRN. 1600: safe handoff to BLANCA Sheffield.
[2022-12-28] MEDS: SODIUM CHLORIDE 0.45% 1,000 ML 75 ML IV (16:47)
[2022-12-28] MEDS: DOCUSATE 100 MG CAPSULE PO (16:49)
[2022-12-28] MEDS: SENNOSIDES 8.6 MG TABLET PO (16:49)
[2022-12-29] MEDS: ACETAMINOPHEN 325 MG TABLET 975 MG PO ×2 (00:29→06:11)
[2022-12-29] MEDS: ATORVASTATIN 20 MG TABLET 80 MG PO (00:29)
[2022-12-29] MEDS: IBUPROFEN 600 MG TABLET PO ×2 (00:30→06:32)
[2022-12-29] MEDS: SODIUM CHLORIDE 0.45% 1,000 ML 75 ML IV (06:12)
--- NOTE | 2022-12-29 06:32 | PC.NURSE ---
Addendum entered by Teresa Saha R.N. 12/29/22 06:55: Pt ambulated in the hallway and back in the room, IVF paused for this reason. Original Note: pt up to the bathroom and ambulating in the room with FWW.
[2022-12-29 07:00] VITALS: BP 130/75; PULSE 67; RESP 17; TEMP 36; O2SAT 97
[2022-12-29] MEDS: DOCUSATE 100 MG CAPSULE PO (08:14)
[2022-12-29] MEDS: SENNOSIDES 8.6 MG TABLET PO (08:14)
--- NOTE | 2022-12-29 09:30 | PC.NURSE ---
pt was gressive and pointing his finger. I was doing a bed change and he was upset because I had to pull the sheet over the corner of the bed.
--- NOTE | 2022-12-29 11:29 | P.PN_ITS ---
Subjective Subjective Date Patient Seen: 12/29/22 Time Patient Seen: 09:10 Interval history: More awake today and ready to go home Exam Vital Signs (past 8 hours): - 12/29/22 07:00 Temperature 96.8 F L Pulse Rate 67 Respiratory Rate 17 Blood Pressure 130/75 Pulse Oximetry 97 Oxygen Flow Rate 0 Oxygen Delivery Method Room Air Oxygen Flow Rate 0 Narrative Exam Narrative: tolerating food, drain has decreased in output and is serosanguous. Abd benign Objective Labs 12/27/22 14:14 12/27/22 14:14 [facility] Medical History Arthritis Cataract Chicken pox Colon polyps Hayfever Hearing loss Hemorrhoids History of colonic polyps (02/14/15) History of inguinal hernia (08/13/16) Hyperlipidemia Hypertension IBS (irritable bowel syndrome) Measles Mumps Prostate cancer (05/30/17) Recurrent sinusitis Surgical History Anesthesia History of colonoscopy (12/23/14) History of colonoscopy with polypectomy (09/22/09) History of prostate biopsy (05/30/17) History of right inguinal hernia repair (09/06/15) History of robot-assisted laparoscopic radical prostatectomy (08/12/17) History of tonsillectomy (~1949) Status post cataract extraction of both eyes with insertion of intraocular lens Status post eye surgery (~2009) Status post hemorrhoidectomy (1975) Family History Father Cancer determined by prostate biopsy Diabetes mellitus High cholesterol Brother No problems noted. Family/Other Stroke Heart attack Family/Other No problems noted. Grandfather No problems noted. Grandmother No problems noted. Mother Ovarian cancer Grandfather Accident Grandmother No problems noted. Sister Multiple sclerosis Social History marital status: household members: spouse Smoking Status: Never smoker alcohol intake: current substance use type: does not use Assessment & Plan Post-op Postoperative Procedures: Procedures Operation Date: 12/28/22 10:00 Actual Procedure Side Surgeon p Laparoscopic Appendectomy with Lysis of Adhesions Not Applicable Franchesca Nava MD Postoperative day: 1 Postoperative status: doing well Postoperative status narrative: no complications Postoperative plan narrative: Home today. Follow up [place] in 1-2 wks for post op check and pathology. remove drain prior to discharge Quality VTE Deep Vein Thrombosis/Pulmonary Embolism Present on Admission: No
--- NOTE | 2022-12-29 11:32 | PM.DS.1 ---
History of Present Illness History of Present Illness Date Patient Seen: 12/29/22 Time Patient Seen: 11:33 Chief complaint: appendix burst sent by [facility] Discharge Providers Provider Date of admission: 12/27/22 17:14 Discharge Date: 12/29/22 Primary care physician: Aston Painter MD Consults: none Discharge provider: Franchesca Nava MD Summary Hospital Course Discharge Diagnosis: ruptured appendicitis with path pending Hospital Course: OR for lap appy with BLAZE. Status at Discharge Cognitive/behavioral status at discharge: at baseline, oriented Overall status at discharge: patient is progressing back to baseline Time Spent with Patient Time spent: Less than 30 minutes Exam Vital Signs (past 8 hours): - 12/29/22 07:00 Temperature 96.8 F L Pulse Rate 67 Respiratory Rate 17 Blood Pressure 130/75 Pulse Oximetry 97 Oxygen Flow Rate 0 Oxygen Delivery Method Room Air Oxygen Flow Rate 0 Const General: cooperative, healthy appearing and comfortable HENMT Head: normocephalic Mouth: oral mucosae normal Eyes General: appearance normal, both eyes and all related structures Neck Neck: trachea midline Resp Effort & Inspection: normal respiratory effort and able to speak in complete sentences Cardio Rate: regular rate Rhythm: regular rhythm GI Inspection: normal to inspection Skin General: turgor normal Neuro General: patient alert, patient awake and patient oriented x3 Psych Judgment: judgment good Objective ECG Impression: A/p lap appy no complications Labs 12/27/22 14:14 12/27/22 14:14 [facility] Medical History Arthritis Cataract Chicken pox Colon polyps Hayfever Hearing loss Hemorrhoids History of colonic polyps (02/14/15) History of inguinal hernia (08/13/16) Hyperlipidemia Hypertension IBS (irritable bowel syndrome) Measles Mumps Prostate cancer (05/30/17) Recurrent sinusitis Surgical History Anesthesia History of colonoscopy (12/23/14) History of colonoscopy with polypectomy (09/22/09) History of prostate biopsy (05/30/17) History of right inguinal hernia repair (09/06/15) History of robot-assisted laparoscopic radical prostatectomy (08/12/17) History of tonsillectomy (~1950) Hx of appendectomy Status post cataract extraction of both eyes with insertion of intraocular lens Status post eye surgery (~2009) Status post hemorrhoidectomy (1975) Family History Father Cancer determined by prostate biopsy Diabetes mellitus High cholesterol Brother No problems noted. Family/Other Stroke Heart attack Family/Other No problems noted. Grandfather No problems noted. Grandmother No problems noted. Mother Ovarian cancer Grandfather Accident Grandmother No problems noted. Sister Multiple sclerosis Social History marital status: household members: spouse Smoking Status: Never smoker alcohol intake: current substance use type: does not use Discharge Assessment & Plan Assessment and Plan Assessment: remove drain and discharge home on po antibiotics Discharge Plan Discharge Plan Patient Disposition: Home Discharge orders & Medications Prescriptions: New ibuprofen 200 mg capsule 400 mg PO Q6H PRN (Reason: fever or pain) Qty: 60 0RF hydrocodone-acetaminophen 5-325 mg tablet 1 tab PO Q8H PRN (Reason: pain) Qty: 20 0RF Continued cholecalciferol (vitamin D3) [Vitamin D3] 1,000 unit Capsule 1,000 unit PO DAILY Qty: 0 CHONDROITIN SULFATE/GLUCOSAMIN (IDRJR-QM-[id number]) 1 tab PO Q DAY Qty: 0 VITAMIN B COMPLEX (SUPER B COMPLEX) 1 cap PO Q DAY Qty: 0 losartan 100 mg tablet 100 mg PO DAILY Qty: 90 1RF Rx Instructions: PATIENT DUE FOR ANNUAL VISIT W/PCP. PLEASE CALL TO SCHEDULE. THANK YOU 06/13/22. Trulance 3 mg tablet 3 mg PO DAILY Qty: 90 1RF desonide 0.05 % cream 1 applic topical DAILY PRN (Reason: Eczema spots) Fiber (psyllium husk-sugar) 3.4 gram/7 gram powder 1 tbsp PO BID Qty: 822 0RF simvastatin 80 mg tablet 80 mg PO DAILY buspirone 10 mg tablet 10 mg PO BID Follow up/Referrals: Franchesca Nava MD [Physician] - Sneha Guerra MD [Physician] - 2 Weeks (review path/ post op check) Aston Painter MD [Primary Care Provider] - Diet/Activity/Treatments Diet: Diet as Tolerated Skin/Wound/Dressing Care Report to your healthcare provider any signs of infection, such as:: chills, fever, increased pain, unusual drainage and unusual redness Visit Report/Discharge Packet Instructions: DI for an Appendectomy, [facility]: Wound Care Stand Alone Forms: Patient Portal/API, Stroke Signs & Symptoms, Surgery Discharge Discharge Data Primary Care Provider: Aston Painter Attending Provider: Sneha Guerra Admit Date/Time: 12/27/22 17:14 Discharges patient from system. Discharge Date/Time: 12/29/22 11:30 Quality VTE Deep Vein Thrombosis/Pulmonary Embolism Present on Admission: No
--- NOTE | 2023-01-07 14:14 | PC.NURSE ---
Referral in from Dr. Guerra today [place] [facility] This RN reached out to [facility] financial counsel about this referral. Prog notes, CT, path, face sheet, referral and labs faxed to [facility]. This RN will reach out to pt on .
== END 2022-12-29 11:30 | disposition home or self-care (01) ==
LOC: ED 16:50 → AC 17:15
PROVIDERS: Surgery; Admitting Provider Surgery; Emergency Provider Emergency Medicine; Family Provider Student in an Organized Health Care Education/Training Program; PCP Family Medicine; Referring Provider Emergency Medicine; Visit Provider Surgery
PROC: 0DTJ4ZZ Resection of Appendix, Percutaneous Endoscopic Approach (ICD-10-PCS; CPT 44970; principal; 2022-12-28 10:00)
DX: K35.32 Acute appendicitis with perforation, localized peritonitis, and gangrene, without abscess (principal); K66.0 Peritoneal adhesions (postprocedural) (postinfection)
CPT/HCPCS: 44970; 36415; 80053; 81001; 83605; 83690; 84145; 85025; 85610; 85730; 87040; 96365; 96366; 96367; 96375; 99222; 99284; G0378; J0171; J0690; J1100; J1170; J2405; J2543; J2704; J3010; J7050

== ENCOUNTER 2023-01-29 08:27 | Inpatient (IN) | payer OTHER, SELFPAY ==
[2023-01-24 07:29] VITALS: BMI 22.0
[2023-01-29] VITALS (19 sets, daily range): BP systolic 101–148; BP diastolic 62–83; PULSE 72–85; RESP 12–18; TEMP 36.4–37.1; O2SAT 96–100; BMI 22.0; BMI 23.5
--- NOTE | 2023-01-29 | PATH_ITS ---
[facility] Accession Number: [id number] No. of containers..01 Tissue . 01 Material submitted: . colon - RIGHT COLON/TERMINAL ILEUM . 01 Diagnosis: Right Colon and Terminal Ileum, Right Hemicolectomy: Segment of ileum and colon with absent appendix, and associated surgical site changes, including fat necrosis and foreign body-type granulomatous inflammation involving serosal adhesions. No residual malignancy identified. Thirty-two benign pericolonic lymph nodes. MRV 02/05/2023 1410 Local . 01 Electronically signed: . Moise Cano MD, PhD, Pathologist NPI- [id number] . 01 Gross description: . The specimen is received in formalin with no patient identifiers or designation (authorization form received), consists an ileocectomy specimen with a portion of ileum measuring 38.2 cm in length and averaging 2.5 cm in diameter attached to the segment of cecum measuring 7.3 cm in length by 4.5 cm in average diameter. No appendix is present. The serosa of the ileum has a roughened congested area measuring 4.7 x 4.5 cm, and is located 4.6 cm from the cecum. A portion of ileum measuring 1.5 cm from the ileal margin is adhered to this roughened hemorrhagic area. The location of the presumed previous appendectomy scar is roughened with adherent fat. The ileal margin is inked blue, the cecum margin is inked black, the mesenteric margin is inked green, and the roughened areas of serosa are inked orange. The lumen contains a small amount of green mucoid material. The colonic mucosa is gaspar and velvety with normal appearing folds. The puckered area consistent with appendiceal stump is unremarkable with no lesions identified. The ileal mucosa ranges from green to gaspar with normal appearing folds and several areas of luminal narrowing that remain probe patent. No fistulas are identified at the areas of adhesion and roughened serosa. Sectioning reveals a staple line identified at the appendiceal stump as well as pale yellow, firm soft tissue within the adipose adjacent to the previous surgical site. The stout range from 0.2 to 0.4 cm thick with no perforation, diverticula, or lesions identified. . Palpation reveals 35 gaspar lymph node candidates ranging from 0.3 to 2.7 cm in greatest dimension. . Schedule Supervisor sections are submitted as follows: A1: Rep margins en face. A2-A8: Entire appendiceal orifice and adjacent mucosa with the pale yellow discoloration of the adipose. A9: Ileum with area of adhesion. A10: Ileum with roughened orange-inked serosa. A11: Ileocecal valve. A12: Unremarkable ileum. A13: Unremarkable colon. A14: Single bisected lymph node candidate. A15: Two intact lymph node candidates. A16: Three intact lymph node candidates. A17: Four intact lymph node candidates. A18: Four intact lymph node candidates. A19: Four intact lymph node candidates. A20: Four intact lymph node candidates. A21: Three intact lymph node candidates. A22: Five intact lymph node candidates. A23: Four intact lymph node candidates: ([id number]) /MRV 01/31/2023 1102 Local . 01 Microscopic: . Sections from the ileal adhesion (A9) are of ileal mucosa with mural and serosal mixed inflammatory infiltrate, including multinucleated giant cells. To exclude the possibility of residual carcinoma, a limited panel of immunohistochemical stains is performed (each with an appropriately positive control). An YANI immunohistochemical stain highlights scattered reactive mesothelial cells; no residual carcinoma is seen. A CD68 immunohistochemical stain highlights the histiocytic/granulomatous inflammation. Overall, there is no evidence of residual carcinoma. . * This test was developed and its performance characteristics determined by [employer]. It has not been cleared or approved by the U.S. Food and Drug Administration. The FDA has determined that such clearance or approval is not necessary. This test is used for clinical purposes. It should not be regarded as investigational or for research. . 01 Pathologist provided ICD-10: Z85.038 . 01 CPT . 044076, H47701, H04678 Specimen Comment: A courtesy copy of this report has been sent to [phone] Performed at: 01 [facility] [address] [facility], [place], [place] [id number] MD Jaime Ervin MD Phone: [phone]
[2023-01-29] MEDS: LACTATED RINGERS 1,000 ML 42 ML IV (09:19)
--- NOTE | 2023-01-29 09:19 | PM.PREOP ---
Pre-operative Note COVID-19 COVID-19 status: Not tested Interval Note History & Physical reviewed/Exam performed by Physician: Yes Changes to H&P: No ASA Class (for procedural sedation): III
[2023-01-29] MEDS: AMPICILLIN/SULBACTAM 3 GM 3 GM in SODIUM CHLORIDE 0.9% 100 ML IV (10:29)
[2023-01-29] MEDS: BUPIVACAINE 0.25% (PF) 30 ML, EPINEPHrine 0.15 MG INJ (10:31)
[2023-01-29] MEDS: BUPIVACAINE 0.5% W/ EPI (PF) 20 ML, BUPIVACAINE LIPOSOME 266 MG, SODIUM CHLORIDE 0.9% 2... INJ (11:37)
--- NOTE | 2023-01-29 12:28 | PM.OP.1 ---
Operative Date/Time/Diagnoses Date of procedure: 01/29/23 Time of procedure: 12:29 Pre-op diagnosis: Appendiceal adenocarcinoma Post-op diagnosis: same Procedure & Clinicians Procedure: Right hemicolectomy Same procedure as scheduled: Yes Surgeon: Huy Leon Senior Cost Estimator: Angelo Morales Anesthesia Type: General Operative Notes Procedure in detail: The patient is a 78-year-old man with a history of a perforated appendiceal adenocarcinoma. After a detailed discussion of the options he opted to go with a right hemicolectomy. The patient received Unasyn. The patient was brought into the operating room and general endotracheal anesthesia was induced. A Greene catheter was attempted however no urine returned and so it was aborted. The abdomen was prepped and draped in the usual fashion and a time-out was performed. We started with a small infraumbilical midline incision. We divided the anterior sheath with cautery. We grasped the posterior sheath between clamps and divided sharply. We entered the abdomen an extended the incision to about 5 cm. We could see some normal-appearing loops of bowel and there was no evidence of widespread metastatic disease so we extended the incision from pubis to just above the umbilicus. We set up the Bookwalter retractor. There were some adhesions of the terminal ileum to the right inguinal mesh which were sharply divided. There was a loop of terminal ileum that was stuck to the wall of the distal terminal ileum about 10 cm from the ileocecal valve. This was felt to be the site of the prior perforation and there appeared to be some residual abscess there. We suctioned a little bit of murky fluid and we opted to resect the ileum and block rather than to further open the abscess cavity between the loops of ileum. We ended up dividing the mid ileum taking approximately 40 cm of ileum with the specimen. We then reflected the right colon the retroperitoneum. We visualized and protected the ureter and the second and third portions of the duodenal. We could see head of the pancreas through few thin layers of tissue. We then divided the proximal transverse colon. We created a [id number] functional end-to-end anastomosis between the mid ileum and the transverse colon using linear cutting stapler with blue loads. We oversewed the anastomosis with multiple interrupted 3-0 silk sutures. We closed the mesenteric defect with a running 2-0 Vicryl stitch. We then irrigated the abdomen with sterile water. We saw good hemostasis. We did not see any obvious metastatic disease in the peritoneal cavity. We then injected Exparel into the fascia and closed the fascia with a running 0 PDS and multiple interrupted 0 Vicryl internal retention sutures. The skin was closed with quin and a sterile dressing was applied. EBL: 30 mL Specimen: Ileum and right colon Post-operative Condition: stable Disposition: PACU
[2023-01-29] MEDS: HYDROMORPHONE 1 MG INJ IV ×4 (12:48→13:12)
[2023-01-29] MEDS: fentaNYL 100 MCG/2 ML INJ IV ×3 (13:18→13:50)
--- NOTE | 2023-01-29 13:26 | SUR.PHASEI ---
See new order for acetaminophen from OR#2 Dr Morales.
--- NOTE | 2023-01-29 13:29 | SUR.PHASEI ---
Dr Leon at bedside. Informed of IV tylenol order and see new order for 30 Toradol IV
[2023-01-29] MEDS: ONDANSETRON 4 MG/2 ML INJ IV (13:34)
[2023-01-29] MEDS: ACETAMINOPHEN IV 1,000 MG/100 ML VIAL 400 MG IV (13:34)
[2023-01-29] MEDS: KETOROLAC 30 MG/ML VIAL IV (13:49)
--- NOTE | 2023-01-29 13:54 | SUR.PHASEI ---
bladder sacn attempted. no volume. difficulty due to location of incision. pt denies urge to void. abd soft and non-distended.
--- NOTE | 2023-01-29 14:37 | SUR.PHASEI ---
Pt transfered to room 202 in [facility] by this RN. SBAR report to Chel Rogers at bedside. Pt alert, oriented. Small black bag with patient which had wedding band, wallet and glasses.
[2023-01-29] MEDS: LACTATED RINGERS 1,000 ML 75 ML IV ×2 (15:07→20:28)
--- NOTE | 2023-01-29 15:21 | PC.NURSE ---
Pt to room 202 via bed from PACU. Pt is awake, alert, and oriented. IVF infusing, SCD's on and running. Bed alarm on for safety. Pt oriented to room, call light, bed controls, and tv controls. Pt agrees to call for assistance as needed and to not get up without assistance. Spouse Ana M is at the bedside.
[2023-01-29] MEDS: LOSARTAN 50 MG TABLET 100 MG PO (20:25)
[2023-01-29] MEDS: hydrOXYzine pamoate 25 MG CAPSULE PO (20:26)
[2023-01-29] MEDS: ATORVASTATIN 20 MG TABLET 40 MG PO (20:26)
[2023-01-30 06:51] LABS: Add Manual Diff / Slide Review NO; Basophils Absolute Auto 0 /uL (0-100); Basophils Percent Auto 0.3 % (0-2); Eosinophils Absolute Auto 0 /uL (0-450); Eosinophils Percent Auto 0.3 % (2-4); Hemoglobin 12.3 g/dL (13.5-17.5); Lymphocytes Absolute Auto 900 /uL (1100-4500); Lymphocytes Percent Auto 12.7 % (25-40); Mean Corpuscular HGB Conc 34.3 % (30-36); Mean Corpuscular Hemoglobin 31.3 PG (26-34); Mean Corpuscular Volume 91.2 fL (80-100); Monocytes Absolute Auto 700 /uL (0-900); Monocytes Percent Auto 9.2 % (3-14); Neutrophils Absolute Auto 5800 /uL (1500-7000); Neutrophils Percent Auto 77.5 % (50-75); Platelet Count 164 X10^3/uL (150-400); Red Blood Cell Count 3.95 X10^6/uL (4.5-5.9); Red Cell Distribution Width 13.6 % (11.6-14.8); White Blood Cell Count 7.4 X10^3/uL (4.5-11.0)
[2023-01-30 07:05] LABS: BUN Creatinine Ratio 18.3 (6-22); Blood Urea Nitrogen 15 mg/dL (9-20); Carbon Dioxide 27 mmol/L (22-32); Chloride 101 mmol/L (98-107); Estimated Glomerular Filt Rate > 60 mL/min (>60); Glucose 109 mg/dL (80-110); HEMOLYSIS < 15 (0-50); Potassium 4.5 mmol/L (3.4-5.1); Sodium 133 mmol/L (137-145)
[2023-01-30 08:00] VITALS: BP 130/60; PULSE 54; RESP 18; TEMP 36.1; O2SAT 99
[2023-01-30] MEDS: ACETAMINOPHEN 325 MG TABLET 650 MG PO (08:23)
[2023-01-30] MEDS: LACTATED RINGERS 1,000 ML 75 ML IV (08:34)
[2023-01-30] MEDS: BUSPIRONE 5 MG TABLET 10 MG PO ×2 (14:00→21:17)
[2023-01-30] MEDS: ENOXAPARIN 40 MG/0.4 ML SYRINGE SUBCUT (14:00)
--- NOTE | 2023-01-30 15:43 | PM.PN.1 ---
Subjective Subjective Date Patient Seen: 01/30/23 Time Patient Seen: 15:43 Interval history: Rafael complains of abdominal incisional pain. No flatus. Exam Vital Signs (past 8 hours): - 01/30/23 08:00 Temperature 96.9 F L Pulse Rate 54 L Respiratory Rate 18 Blood Pressure 130/60 Pulse Oximetry 99 Oxygen Flow Rate 0 Oxygen Delivery Method Room Air Oxygen Flow Rate 0 Narrative Exam Narrative: Abdomen soft, appropriately tender Objective Labs 01/30/23 06:37 01/30/23 06:37 Labs: Laboratory Results - last 24 hr 01/30/23 06:37 WBC 7.4 RBC 3.95 L Hgb 12.3 L Hct 36.0 L MCV 91.2 MCH 31.3 MCHC 34.3 RDW 13.6 Plt Count 164 Neut % (Auto) 77.5 H Lymph % (Auto) 12.7 L Meigs % (Auto) 9.2 Eos % (Auto) 0.3 L Baso % (Auto) 0.3 Neut # (Auto) 5800 Lymph # (Auto) 900 L Meigs # (Auto) 700 Eos # (Auto) 0 Baso # (Auto) 0 Sodium 133 L Potassium 4.5 Chloride 101 Carbon Dioxide 27 BUN 15 Creatinine 0.82 Estimated GFR > 60 BUN/Creatinine Ratio 18.3 Glucose 109 Calcium 9.0 [facility] Medical History (Updated 01/24/23 @ 07:29 by Shandra Reynolds RN) Anxiety Arthritis Hayfever Hyperlipidemia Hypertension Colon polyps Hemorrhoids IBS (irritable bowel syndrome) Cataract Hearing loss Recurrent sinusitis Mumps Measles Chicken pox Prostate cancer (05/30/17) History of inguinal hernia (08/13/16) History of colonic polyps (02/14/15) Surgical History (Updated 01/21/23 @ 11:36 by Shandra Reynolds RN) History of hernia repair (05/06/18) Hx of appendectomy (12/28/22) Status post cataract extraction of both eyes with insertion of intraocular lens History of robot-assisted laparoscopic radical prostatectomy (08/12/17) History of prostate biopsy (05/30/17) History of right inguinal hernia repair (09/06/15) History of colonoscopy with polypectomy (09/22/09) History of colonoscopy (12/23/14) Anesthesia Status post eye surgery (~2009) Status post hemorrhoidectomy (1975) History of tonsillectomy (~1950) Family History Father Cancer determined by prostate biopsy Diabetes mellitus High cholesterol Brother No problems noted. Family/Other Stroke Heart attack Family/Other No problems noted. Grandfather No problems noted. Grandmother No problems noted. Mother Ovarian cancer Grandfather Accident Grandmother No problems noted. Sister Multiple sclerosis Social History marital status: household members: spouse Smoking Status: Never smoker alcohol intake: current substance use type: does not use Assessment & Plan Assessment and plan (1) Primary appendiceal adenocarcinoma: Problem details: Pathologic T4N1 Status: Acute Plan Doing well postop day 1 following right hemicolectomy. Await bowel function. Start Lovenox Quality VTE Deep Vein Thrombosis/Pulmonary Embolism Present on Admission: No
[2023-01-30] MEDS: HYDROCODONE/ACET 5/325 TABLET 1 TAB PO ×2 (16:18→21:16)
--- NOTE | 2023-01-30 17:43 | PC.NURSE ---
Pt had relatively uneventful day. Dsg to abd w/some shadow drainage noted. HL RFA intact/patent. SBA Med x 2 for discomfort w/relief. Stable post op status. Call light w/in reach, bed alarm on for pt safety Continue w/plan of care.
[2023-01-30 21:00] VITALS: BP 148/74; PULSE 64; RESP 18; TEMP 37; O2SAT 100
[2023-01-30] MEDS: hydrOXYzine pamoate 25 MG CAPSULE PO (21:17)
[2023-01-30] MEDS: ATORVASTATIN 20 MG TABLET 40 MG PO (21:17)
[2023-01-30 22:47] VITALS: BP 148/74; PULSE 64
[2023-01-30] MEDS: LOSARTAN 50 MG TABLET 100 MG PO (22:47)
[2023-01-31 07:00] VITALS: BP 144/80; PULSE 78; RESP 16; TEMP 37.2; O2SAT 96
[2023-01-31] MEDS: ENOXAPARIN 40 MG/0.4 ML SYRINGE SUBCUT (08:37)
[2023-01-31] MEDS: BUSPIRONE 5 MG TABLET 10 MG PO ×2 (08:40→21:24)
[2023-01-31] MEDS: ACETAMINOPHEN 325 MG TABLET 650 MG PO ×2 (08:41→16:15)
[2023-01-31] MEDS: IBUPROFEN 600 MG TABLET PO (11:39)
--- NOTE | 2023-01-31 12:47 | CM.DANOTE ---
Initial DCP Assessment Note Pt is a 78 yo male, resident of [place], POD1 from Right hemicolectomy r/t malignant neoplasm of appendix PCP: Aston Painter Payer: Jonatan JOHNSON Met w/patient and his Ana M at bedside, introduced role. Patient lives w/spouse and is independent in all aspects. Patient denies h/o HH or SNF and denies needs from this DEPARTMENT OF MATHEMATICS CHAIR. Patient appreciative of the visit. No barriers identified at this time to patient's safe discharge home w/family to assist; close outpatient f/u recommended, once stable to do so. CM team will plan to follow closely in case any DC needs or concerns arise. HIEU Reed Discharge Planning/Care Management CM Discharge Assessment Start: 01/30/23 11:32 Freq: Status: Active Protocol: Document 01/31/23 12:25 ALONSO (Rec: 01/31/23 12:47 ALONSO [id number]) Discharge Planning Assessment Assigned Car Repairer HIEU Brandt DPOA/Assigned Designee Name Ana M Mackay, spouse Contact Information [phone] Advance Directives? Yes Advance Directives on File No History Provided By Patient,Significant Other, Medical Record Prior Living Arrangements House Household Members spouse Type of transporation used prior to Drives own vehicle admit Independent with ADL's Yes Is patient alert and oriented? Yes Barriers to Discharge No Comment Home w/spouse expected, likely no needs upon discharge. Following medical plan of care closely. Discharge Plan Home Transportation Arrangement Family Referrals Initiated None needed Additional Comment At this time
[2023-01-31 19:00] VITALS: BP 129/84; PULSE 61; RESP 17; TEMP 35.8; O2SAT 96
[2023-01-31] MEDS: ATORVASTATIN 20 MG TABLET 40 MG PO (21:24)
[2023-01-31] MEDS: SODIUM CHLORIDE 0.9% FLUSH 10 ML IV (21:24)
[2023-01-31] MEDS: hydrOXYzine pamoate 25 MG CAPSULE PO (21:25)
[2023-01-31 21:27] VITALS: BP 129/84; PULSE 61
[2023-01-31] MEDS: LOSARTAN 50 MG TABLET 100 MG PO (21:27)
[2023-02-01] MEDS: IBUPROFEN 600 MG TABLET PO ×3 (05:42→20:17)
[2023-02-01 07:00] VITALS: BP 127/81; PULSE 83; RESP 16; TEMP 36.1; O2SAT 99
[2023-02-01] MEDS: BUSPIRONE 5 MG TABLET 10 MG PO ×2 (09:03→20:17)
[2023-02-01] MEDS: ENOXAPARIN 40 MG/0.4 ML SYRINGE SUBCUT (09:03)
[2023-02-01] MEDS: ACETAMINOPHEN 325 MG TABLET 650 MG PO ×2 (09:03→16:55)
[2023-02-01] MEDS: SODIUM CHLORIDE 0.9% FLUSH 10 ML IV ×2 (09:09→20:17)
--- NOTE | 2023-02-01 10:10 | P.PN_ITS ---
Subjective Subjective Date Patient Seen: 02/01/23 Time Patient Seen: 10:11 Interval history: 78M POD 3 sp right hemicolectomy for appendiceal carcinoma. +BM Tolerating clears Ambulatory Not requiring narcotics Exam Vital Signs (past 8 hours): - 02/01/23 07:00 Temperature 97.0 F L Pulse Rate 83 Respiratory Rate 16 Blood Pressure 127/81 Pulse Oximetry 99 Oxygen Flow Rate 0 Oxygen Delivery Method Room Air Oxygen Flow Rate 0 Narrative Exam Narrative: Gen-Adult man alert and oriented Abdomen-Soft appropriately tender dressing CDI Objective Labs 01/30/23 06:37 01/30/23 06:37 [facility] Medical History (Updated 01/24/23 @ 07:29 by Shandra Reynolds RN) Anxiety Arthritis Hayfever Hyperlipidemia Hypertension Colon polyps Hemorrhoids IBS (irritable bowel syndrome) Cataract Hearing loss Recurrent sinusitis Mumps Measles Chicken pox Prostate cancer (05/30/17) History of inguinal hernia (08/13/16) History of colonic polyps (02/14/15) Surgical History (Updated 01/21/23 @ 11:36 by Shandra Reynolds RN) History of hernia repair (05/06/18) Hx of appendectomy (12/28/22) Status post cataract extraction of both eyes with insertion of intraocular lens History of robot-assisted laparoscopic radical prostatectomy (08/12/17) History of prostate biopsy (05/30/17) History of right inguinal hernia repair (09/06/15) History of colonoscopy with polypectomy (09/22/09) History of colonoscopy (12/23/14) Anesthesia Status post eye surgery (~2009) Status post hemorrhoidectomy (1975) History of tonsillectomy (~1950) Family History Father Cancer determined by prostate biopsy Diabetes mellitus High cholesterol Brother No problems noted. Family/Other Stroke Heart attack Family/Other No problems noted. Grandfather No problems noted. Grandmother No problems noted. Mother Ovarian cancer Grandfather Accident Grandmother No problems noted. Sister Multiple sclerosis Social History marital status: household members: spouse Smoking Status: Never smoker alcohol intake: current substance use type: does not use Assessment & Plan Post-op Postoperative Procedures: Procedures Operation Date: 01/29/23 09:45 Actual Procedure Side Surgeon p Hemicolectomy Right Huy Leon MD Postoperative status narrative: 78M POD3 SP R hemicolectomy for appendiceal carcinoma Doing well progressing appropriately, bowel function returned -Regular diet -PT -SCDs and Lovenox -Anticipate DC home tomorrow -OK to shower today after removal of dressing and replace with Aquacel bandage Quality VTE Deep Vein Thrombosis/Pulmonary Embolism Present on Admission: No
--- NOTE | 2023-02-01 14:26 | PC.NURSE ---
Day shift: Dressing changed per MD instructions. Incision well approximated. Stables intact w/ no s/s of infection. Pt tolerated well. He will shower soon.
--- NOTE | 2023-02-01 16:08 | PT.IIE ---
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) Surgery Performed Operation Date: 01/29/23 09:45 Actual Procedures p Hemicolectomy(Right) - Huy Leon MD Surgical History (Last Updated 01/21/23 @ 11:36 by Shandra Reynolds RN) Anesthesia History of colonoscopy (12/23/14) History of colonoscopy with polypectomy (09/22/09) History of hernia repair (05/06/18) History of prostate biopsy (05/30/17) History of right inguinal hernia repair (09/06/15) History of robot-assisted laparoscopic radical prostatectomy (08/12/17) History of tonsillectomy (~1949) Hx of appendectomy (12/28/22) Status post cataract extraction of both eyes with insertion of intraocular lens Status post eye surgery (~2009) Status post hemorrhoidectomy (1975) Medical History (Last Updated 01/24/23 @ 07:29 by Shandra Reynolds RN) Anxiety Arthritis Cataract Chicken pox Colon polyps Hayfever Hearing loss Hemorrhoids History of colonic polyps (02/14/15) History of inguinal hernia (08/13/16) Hyperlipidemia Hypertension IBS (irritable bowel syndrome) Measles Mumps Prostate cancer (05/30/17) Recurrent sinusitis Physical Therapy Inpatient Evaluation/Re-Eval M1 PT/OT-IP Prior Functional Status Start: 02/01/23 16:58 Freq: NEEDED Status: Active Protocol: Document 02/01/23 16:08 AB (Rec: 02/01/23 17:07 [email or web address]) Medical Review Prior Functional Status Medical History Reviewed Yes Communication able to make needs known Mobility and Gait pt stated that he is independent with all mobilities and ambulation without AD Social History Household Members spouse Living Arrangements House Number of Floors (Floors) Two Floors Number of Stairs To Enter/Railing? 6 steps with 1 rail to enter from the front or 2 steps without rails from the garage has 15 steps R rail descending down to bathroom/shower room and office Home Environment High Toilet,Walk in Shower, Built-In Shower Seat Home Equipment Hand Held Shower M2 PT-IP Current Condition Start: 02/01/23 16:58 Freq: NEEDED Status: Active Protocol: Document 02/01/23 16:08 AB (Rec: 02/01/23 17:07 AB [email or web address]) Physical Therapy Current Condition Current Condition Evaluation Date 02/01/23 Treatment Diagnosis s/p R hemicolectomy; difficulty in walking Onset Date 01/29/23 M3 PT-IP Subjective Start: 02/01/23 16:58 Freq: NEEDED Status: Active Protocol: Document 02/01/23 16:08 AB (Rec: 02/01/23 17:07 [email or web address]) Subjective Physical Therapy Visit Type Type Initial Evaluation Visit Start Time 16:08 Visit Stop Time 16:30 Total Visit Minutes 22 Number of NET REPAIRER Visits 0 Physical Therapy Visit Comments Patient Comments agreeable to do PT Therapy Pain Assessment Pain When Pain Assessed At Rest Pain Present Pain Present Pain Reported Location Abdomen Scale Used some pain as expected per pt Pain Management Techniques Distraction,Modification of Treatment,Re-positioning, Timing of Activity with Medications M4 PT-IP Mobility and Gait Start: 02/01/23 16:58 Freq: NEEDED Status: Active Protocol: Document 02/01/23 16:08 AB (Rec: 02/01/23 17:07 [email or web address]) PT-Bed Mobility Assessment Rolling Type of Rolling Log Rolling Level of Assist Standby Assistance Supine to Sit Supine to Sit Standby Assistance Sit to Supine Sit to Supine Standby Assistance PT-Transfer Assessment Sit to and From Stand Sit to and from Stand Standby Assistance Equipment Transfer Assistive Device None Orthotic/Prosthetic Devices or Brace: No Transfers Transfer Destination Bed,Chair Transfer Technique ambulated Transfer Ability Level of Assist Standby Assistance Comments Mobility Comments pt sitting on the chair. per nurse/NAC, pt just had a shower. pt agreeable to do PT. educated pt on abdominal precautions and log roll bed mobility. pt completed sit to stand from the chair SBA and ambulated to EOB without AD SBA. pt completed log roll sit<>supine SBA. pt agreed to do stairs. ambulated towards the stairs ~ 100 ft without AD SBA. completed up/down stairs using L rail ascending SBA. pt ambulated in the hallway ~ 250 ft without AD SBA. slow paced gait without LOB. pt ambulated back to his room and sat on the chair. call light and table placed within reach . pt without further concerns. informed pt that no further PT indicated and is cleared to ambulate in room independently but informed nurse if he want to walk in the hallway for safety. pt understood and agreed. informed nurse that no further PT needed. Gait Assessment Gait Gait Assistance Required: Standby Assistance Distance (Feet) 250 Able to Maintain Weight Bearing Status Yes During Gait Assistive Devices Assistive Device None Orthotic/Prosthetic Devices or Brace: No Gait Deviations General Gait Pattern Decreased Stride Length, Decreased Feet Clearance Factors Limiting Gait Function Factors Limiting Gait Function Decreased Activity Tolerance Stair Climbing Assessment Evaluation Level of Assist On Stairs Standby Assistance Devices Stair Climbing Assistive Devices Left Railing Technique/Endurance Stair Climbing Direction Ascend and Descend Stair Climbing Technique Step to Step Number of Steps Climbed 3 Query Text: Stair Climbing Set # Repetitions (reps) 3 PT-Balance Assessment Sitting Balance and Reactions Static Sitting Balance Ability Normal Dynamic Sitting Balance Ability Normal Standing Balance and Reactions Static Standing Balance Ability Good Dynamic Standing Balance Ability Good Device Used without AD M5 PT-IP Objective Assessments Start: 02/01/23 16:58 Freq: NEEDED Status: Active Protocol: Document 02/01/23 16:08 AB (Rec: 02/01/23 17:07 [email or web address] Orientation Orientation/Cognition Level of Alertness Alert Orientation Name,Place,Situation Language Function Ability No Deficits Noted Safety Awareness Understands Safety Issues Memory Description No Deficits Noted Gross Range of Motion Lower Extremity ROM Assessment Within Functional Limits Strength Lower Extremity Strength Assessment Within Functional Limits Sensation Assessment Sensation Gross Sensation WNL Muscle Tone Muscle Tone WNL Yes M6 PT-IP Treatment Start: 02/01/23 16:58 Freq: NEEDED Status: Active Protocol: Document 02/01/23 16:08 AB (Rec: 02/01/23 17:07 AB [email or web address]) Physical Therapy Treatment Education Education Provided Precautions,Post-Op Packet, Safety M7 PT-IP Assessment and Plan Start: 02/01/23 16:58 Freq: NEEDED Status: Active Protocol: Document 02/01/23 16:08 AB (Rec: 02/01/23 17:07 AB [email or web address]) PT Summary Assessment and Plan Potential Rehabilitation Potential Good Status of Condition at Evaluation Stable Summary Impairments Pain,Balance,Bed Mobility, Transfers,Gait,Activity Tolerance Progress Towards Goals Safe For Discharge Assessment Summary pt s/p R hemicolectomy POD 3. pt doing well with mobility and needing SBA for long distance ambulation without AD for safety but may be independent in room. pt plans to go home and spouse will be able to assist pt. No further PT intervention indicated at this time. Frequency of Treatment Frequency Of Treatment Discharge Precautions Abdominal Surgery Precautions Log Roll,Lifting Restrictions, Gait Belt above Incisional Area Recommendations To Nursing Amount of Assist Needed Standby Assistance Discharge Recommendations PT Discharge Recommendations Home with Assistance Transportation Needs at Discharge Private Vehicle
[2023-02-01 19:00] VITALS: BP 124/76; PULSE 79; RESP 16; TEMP 36.3; O2SAT 99
[2023-02-01] MEDS: hydrOXYzine pamoate 25 MG CAPSULE PO (20:17)
[2023-02-01 20:18] VITALS: BP 124/76; PULSE 79
[2023-02-01] MEDS: ATORVASTATIN 20 MG TABLET 40 MG PO (20:18)
[2023-02-01] MEDS: LOSARTAN 50 MG TABLET 100 MG PO (20:18)
[2023-02-02] MEDS: ACETAMINOPHEN 325 MG TABLET 650 MG PO (06:25)
[2023-02-02] MEDS: SODIUM CHLORIDE 0.9% FLUSH 10 ML IV (08:35)
[2023-02-02] MEDS: BUSPIRONE 5 MG TABLET 10 MG PO (08:36)
[2023-02-02] MEDS: ENOXAPARIN 40 MG/0.4 ML SYRINGE SUBCUT (08:36)
[2023-02-02 09:00] VITALS: BP 124/77; RESP 18; TEMP 36.7; O2SAT 96
[2023-02-02] MEDS: IBUPROFEN 600 MG TABLET PO (09:53)
--- NOTE | 2023-02-02 09:57 | P.DS_ITS ---
History of Present Illness History of Present Illness Date Patient Seen: 02/02/23 Time Patient Seen: 09:57 Chief complaint: INPT Narrative: 78-year-old man with a history of appendiceal adenocarcinoma who presented to the hospital for a scheduled completion right hemicolectomy. Discharge Providers Provider Date of admission: 01/29/23 08:27 Discharge Date: 02/02/23 Primary care physician: Aston Painter MD Consults: 02/01/23 10:14 Consult to Physical Therapy Evaluate & Treat Comment: Physician Instructions: Evaluate and Treat Discharge provider: Angelo Morales MD Summary Hospital Course Discharge Diagnosis: Appendiceal adenocarcinoma Hospital Course: Underwent open right hemicolectomy January 29 2023, no findings of widespread metastatic disease. Postoperatively he progressed well, unremarkable hospitalization. At discharge he is ambulatory, pain is controlled with nonnarcotic medication he is tolerating a diet and has return of bowel function. Exam Vital Signs (past 8 hours): - 02/02/23 09:00 Temperature 98.1 F Respiratory Rate 18 Blood Pressure 124/77 Pulse Oximetry 96 Oxygen Delivery Method Room Air Oxygen Flow Rate 0 Narrative Exam Narrative: General elderly man alert oriented no acute distress Abdomen soft appropriately tender to palpation. Midline incision clean dry intact with quin. Objective Labs 01/30/23 06:37 01/30/23 06:37 [facility] Medical History (Updated 01/24/23 @ 07:29 by Shandra Reynolds RN) Anxiety Arthritis Hayfever Hyperlipidemia Hypertension Colon polyps Hemorrhoids IBS (irritable bowel syndrome) Cataract Hearing loss Recurrent sinusitis Mumps Measles Chicken pox Prostate cancer (05/30/17) History of inguinal hernia (08/13/16) History of colonic polyps (02/14/15) Surgical History (Updated 01/21/23 @ 11:36 by Shandra Reynolds RN) History of hernia repair (05/06/18) Hx of appendectomy (12/28/22) Status post cataract extraction of both eyes with insertion of intraocular lens History of robot-assisted laparoscopic radical prostatectomy (08/12/17) History of prostate biopsy (05/30/17) History of right inguinal hernia repair (09/06/15) History of colonoscopy with polypectomy (09/22/09) History of colonoscopy (12/23/14) Anesthesia Status post eye surgery (~2009) Status post hemorrhoidectomy (1975) History of tonsillectomy (~1950) Family History Father Cancer determined by prostate biopsy Diabetes mellitus High cholesterol Brother No problems noted. Family/Other Stroke Heart attack Family/Other No problems noted. Grandfather No problems noted. Grandmother No problems noted. Mother Ovarian cancer Grandfather Accident Grandmother No problems noted. Sister Multiple sclerosis Social History marital status: household members: spouse Smoking Status: Never smoker alcohol intake: current substance use type: does not use Discharge Plan Discharge Plan Patient Disposition: Home Provider Discharge Comment: -Okay to shower. -Do not submerge wounds in water until seen in follow-up. -No lifting >20 lbs x 4 weeks. -Walking only for exercise for 4 weeks. -No driving while taking narcotics. Discharge orders & Medications Prescriptions: New ibuprofen 200 mg tablet 400 mg PO Q6H Qty: 60 0RF Continued cholecalciferol (vitamin D3) [Vitamin D3] 1,000 unit Capsule 1,000 unit PO DAILY Qty: 0 Trulance 3 mg tablet 3 mg PO DAILY Qty: 90 1RF desonide 0.05 % cream 1 applic topical DAILY PRN (Reason: Eczema spots) simvastatin 80 mg tablet 80 mg PO BEDTIME acetaminophen 500 mg Tablet 1,000 mg PO BEDTIME losartan 100 mg tablet 100 mg PO BEDTIME Rx Instructions: PATIENT DUE FOR ANNUAL VISIT W/PCP. PLEASE CALL TO SCHEDULE. THANK YOU 06/13/22. hydroxyzine HCl 25 mg Tablet 25 mg PO BEDTIME Rx Instructions: per patient, no longer taking Follow up/Referrals: Huy Leon MD [Physician] - 2 Weeks Diet/Activity/Treatments Diet: Diet as Tolerated Skin/Wound/Dressing Care Report to your healthcare provider any signs of infection, such as:: chills, fever, increased pain, unusual drainage and unusual redness Visit Report/Discharge Packet Stand Alone Forms: Patient Portal/API, Stroke Signs & Symptoms Discharge Data Primary Care Provider: Aston Painter VTE Deep Vein Thrombosis/Pulmonary Embolism Present on Admission: No
--- NOTE | 2023-02-02 11:15 | PC.NURSE ---
Discharge note: Discharge instructions given to both patient and spouse, discussed importance of F/U with Dr. Morales in two weeks, wound dressing care, and signs of worsening symptoms. Patient ambulating independently, tolerating diet, and voiding. Discharged home via private vehicle accompanied by spouse.
== END 2023-02-02 11:18 | disposition home or self-care (01) | DRG 331 ==
PROVIDERS: Admitting Provider Surgery; Family Provider Student in an Organized Health Care Education/Training Program; PCP Family Medicine; Referring Provider Surgery; Visit Provider Surgery
PROC: 0DTF0ZZ Resection of Right Large Intestine, Open Approach (ICD-10-PCS; CPT 44140; principal; 2023-01-29 09:45)
DX: C18.1 Malignant neoplasm of appendix (principal); I10 Essential (primary) hypertension; E78.5 Hyperlipidemia, unspecified
CPT/HCPCS: 36415; 44140; 80048; 85025; 97161; C9290; J0131; J0171; J0295; J1100; J1170; J1650; J1885; J2250; J2405; J2704; J3010

== ENCOUNTER → 2023-02-11 13:25 | Outpatient (CLI) | payer OTHER, SELFPAY ==
[2023-01-29 14:53] VITALS: BMI 23.5
--- NOTE | 2023-02-11 13:26 | DI.CT.S_ITS ---
PROCEDURE: CT ABDOMEN PELVIS W CON INDICATIONS: pelvic pain TECHNIQUE: After the administration of oral and intravenous contrast, axial sections were acquired from the lung bases to the pubic symphysis. Coronal and sagittal reformats were performed. For radiation dose reduction, the following was used: automated exposure control, adjustment of mA and/or kV according to patient size. COMPARISON:[facility], CT, CT ABDOMEN PELVIS W CON, 12/25/2022, 9:26. FINDINGS: Image quality: Excellent. Lung bases: No suspicious pulmonary nodules or consolidation. No basilar effusion. Heart: Normal size. Marked coronary vessel calcifications. ABDOMEN: Liver: Stable cysts in the left hepatic lobe. Additional scattered subcentimeter hypodensities are too small to characterize. Gallbladder: Cholelithiasis and sludge with trace pericholecystic fluid. Biliary ducts: CBD is normal in caliber. No intrahepatic biliary ductal dilatation. No choledocholithiasis. Pancreas: Unremarkable. Spleen: Unremarkable. Adrenal Glands: Unremarkable. Kidneys and Ureters: Symmetric enhancement with no hydronephrosis or nephrolithiasis bilaterally. Right upper pole simple cyst. Stomach and Bowel: Compared to CT dated December 25, 2022, interval appendectomy. Adjacent to the staple line, there is a hypoechoic fluid collection with peripheral enhancement measuring 4.6 x 3.5 x 7.6 cm (AP x ML x CC) (2/54, 3/30). There is no contrast within this collection to suggest a leak. No pneumatosis, pneumoperitoneum or portal venous gas. A few loops of borderline dilated small bowel in the pelvis measuring up to 3 cm with no discrete transition point. Scattered sigmoid diverticuli. Peritoneum: Trace pelvic free fluid which is minimally complex with Hounsfield unit of 27 (2/70, 71). Ventral Wall: No hernia. Healing midline incision with superficial skin quin. No susceptibility knee is fluid collection. Abdominal Nodes: No retroperitoneal or mesenteric adenopathy by size criteria. Vessels: Aorta and inferior vena cava are normal in size. Moderate calcification of the abdominal aorta, without aneurysm. PELVIS: Pelvic Organs: Unremarkable. Bladder: Unremarkable. Pelvic Nodes: No enlarged lymph nodes. Miscellaneous: No inguinal hernias are seen. Bones: No acute fractures. No aggressive appearing lytic or blastic osseous lesions. Grade 1 anterolisthesis of L4 on L5 of approximately 6 mm. Schmorl's node at the superior endplate of L3. IMPRESSION: 1. Compared to CT dated December 25, 2022, interval appendectomy. Adjacent to the staple line, there is a fluid collection with rim enhancement and air measuring 4.6 x 3.5 x 7.6 cm which may be sterile or infected. No enteric leak. This may be amenable to percutaneous drainage, if warranted. 2. A few loops of borderline dilated small bowel in the pelvis measuring 3 cm with no discrete transition point may represent an early ileus. 3. Trace pelvic free fluid which is minimally complex, postsurgical. 4. Cholelithiasis and sludge with trace pericholecystic fluid. Findings are likely reactive, less likely acute cholecystitis. Correlate with physical exam. Dictated by: Shania Page M.D. on 02/11/2023 at 19:18 Approved by: Shania Page M.D. on 02/11/2023 at 19:37
== END ==
PROVIDERS: Family Provider Student in an Organized Health Care Education/Training Program; PCP Family Medicine; Referring Provider Surgery; Visit Provider Surgery
DX: C18.1 Malignant neoplasm of appendix (principal); K76.89 Other specified diseases of liver; K80.20 Calculus of gallbladder without cholecystitis without obstruction; K82.8 Other specified diseases of gallbladder; N28.1 Cyst of kidney, acquired; K57.30 Diverticulosis of large intestine without perforation or abscess without bleeding; I70.0 Atherosclerosis of aorta; M51.46 Schmorl's nodes, lumbar region
CPT/HCPCS: 74177; Q9967

== ENCOUNTER → 2023-02-12 15:20 | Outpatient (CLI) | payer OTHER, SELFPAY ==
[2023-01-29 14:53] VITALS: BMI 23.5
[2023-02-12 17:51] LABS: Alanine Aminotransferase 30 IU/L (<50); Albumin 3.8 g/dL (3.5-5.0); Albumin Globulin Ratio 1.2 (1.0-2.8); Alkaline Phosphatase 106 U/L (38-126); Aspartate Aminotransferase 30 IU/L (17-59); BUN Creatinine Ratio 21.8 (6-22); Blood Urea Nitrogen 17 mg/dL (9-20); Calcium 9.4 mg/dL (8.4-10.2); Carbon Dioxide 31 mmol/L (22-32); Chloride 100 mmol/L (98-107); Estimated Glomerular Filt Rate > 60 mL/min (>60); Globulin 3.2 g/dL (1.7-4.1); Glucose 98 mg/dL (80-110); HEMOLYSIS < 15 (0-50); Sodium 138 mmol/L (137-145)
[2023-02-12 18:01] LABS: Bilirubin Total < 0.1 mg/dL (0.2-1.3)
[2023-02-12 18:29] LABS: Add Manual Diff / Slide Review NO; Basophils Absolute Auto 0 /uL (0-100); Basophils Percent Auto 1.2 % (0-2); Eosinophils Absolute Auto 300 /uL (0-450); Eosinophils Percent Auto 7.6 % (2-4); Hematocrit 34.5 % (41-53); Hemoglobin 11.7 g/dL (13.5-17.5); Lymphocytes Absolute Auto 900 /uL (1100-4500); Lymphocytes Percent Auto 22.9 % (25-40); Mean Corpuscular HGB Conc 33.8 % (30-36); Mean Corpuscular Hemoglobin 30.8 PG (26-34); Mean Corpuscular Volume 91.3 fL (80-100); Monocytes Absolute Auto 400 /uL (0-900); Monocytes Percent Auto 10.4 % (3-14); Neutrophils Absolute Auto 2200 /uL (1500-7000); Neutrophils Percent Auto 57.9 % (50-75); Platelet Count 295 X10^3/uL (150-400); Red Blood Cell Count 3.78 X10^6/uL (4.5-5.9); Red Cell Distribution Width 13.3 % (11.6-14.8); White Blood Cell Count 3.9 X10^3/uL (4.5-11.0)
== END ==
PROVIDERS: Family Provider Student in an Organized Health Care Education/Training Program; PCP Family Medicine; Referring Provider Surgery; Visit Provider Surgery
DX: T81.49XA Infection following a procedure, other surgical site, initial encounter (principal)
CPT/HCPCS: 36415; 80053; 85025; 99213

== ENCOUNTER → 2023-02-14 09:41 | Outpatient (CLI) | payer OTHER, SELFPAY ==
[2023-01-29 14:53] VITALS: BMI 23.5
[2023-02-14 10:40] LABS: Add Manual Diff / Slide Review NO; Basophils Absolute Auto 100 /uL (0-100); Basophils Percent Auto 1.4 % (0-2); Eosinophils Absolute Auto 200 /uL (0-450); Eosinophils Percent Auto 4.6 % (2-4); Hematocrit 36.6 % (41-53); Hemoglobin 12.2 g/dL (13.5-17.5); Lymphocytes Absolute Auto 900 /uL (1100-4500); Lymphocytes Percent Auto 22.4 % (25-40); Mean Corpuscular HGB Conc 33.3 % (30-36); Mean Corpuscular Hemoglobin 30.5 PG (26-34); Mean Corpuscular Volume 91.7 fL (80-100); Monocytes Absolute Auto 400 /uL (0-900); Monocytes Percent Auto 9.3 % (3-14); Neutrophils Absolute Auto 2600 /uL (1500-7000); Neutrophils Percent Auto 62.3 % (50-75); Platelet Count 343 X10^3/uL (150-400); Red Blood Cell Count 3.99 X10^6/uL (4.5-5.9); White Blood Cell Count 4.2 X10^3/uL (4.5-11.0)
== END ==
PROVIDERS: Family Provider Student in an Organized Health Care Education/Training Program; PCP Family Medicine; Referring Provider Surgery; Visit Provider Surgery
DX: T81.49XA Infection following a procedure, other surgical site, initial encounter (principal)
CPT/HCPCS: 36415; 85025

== ENCOUNTER → 2023-02-21 11:25 | Outpatient (CLI) | payer OTHER, SELFPAY ==
[2023-01-29 14:53] VITALS: BMI 23.5
--- NOTE | 2023-02-21 11:27 | DI.CT.S_ITS ---
PROCEDURE: CT ABDOMEN PELVIS W CON INDICATIONS: abscess TECHNIQUE: After the administration of intravenous contrast, axial sections acquired from the lung bases to the pubic symphysis. Coronal and sagittal reformats were performed. For radiation dose reduction, the following was used: automated exposure control, adjustment of mA and/or kV according to patient size. COMPARISON: [facility], CT, CT ABDOMEN PELVIS W CON, 10/15/2022, 23:03. [facility], CT, CT ABDOMEN PELVIS W CON, 02/11/2023, 14:18. [facility], CT, CT ABDOMEN PELVIS W CON, 12/25/2022, 9:26. FINDINGS: Image quality: Excellent. Lung bases: Unremarkable. Heart: No significant findings. ABDOMEN: Liver: Unremarkable. Gallbladder: The gallbladder is again seen to contain multiple small posterior layering calcified gallstones. Biliary ducts: Unremarkable. Pancreas: Unremarkable. Spleen: Unremarkable. Splenic artery somewhat prominent calcifications are present as has been previously the case. No evidence of prior splenic infarction. Adrenal Glands: Unremarkable. Kidneys and Ureters: Unremarkable. Stomach and Bowel: Stomach, small bowel loops, and colon are unremarkable. Peritoneum: No abnormal intraperitoneal fluid. No free air. Ventral Wall: No hernias. Abdominal Nodes: No retroperitoneal or mesenteric adenopathy by size criteria. Vessels: Aorta and inferior vena cava are normal in size. PELVIS: Pelvic Organs: Unremarkable. Bladder: Unremarkable. Pelvic Nodes: No enlarged lymph nodes. Miscellaneous: No hernias are seen. The patient has undergone prior appendectomy, with CT documented postoperative abscess measuring up to approximately 5 cm. Only a small degree of residual inflammatory soft tissue changes present in this area, and no perceptible abscess fluid collection is seen. Bones: Unremarkable. IMPRESSION: Resolution of a post-appendectomy right lower quadrant abscess, mild residual soft tissue inflammation. Stable appearance of posterior layering small multiple calcified gallstones within the gallbladder lumen. No acute disease. Dictated by: Chapin Krishnan M.D. on 02/21/2023 at 14:25 Approved by: Chapin Krishnan M.D. on 02/21/2023 at 14:32
== END ==
PROVIDERS: Family Provider Student in an Organized Health Care Education/Training Program; PCP Family Medicine; Referring Provider Surgery; Visit Provider Surgery
DX: T81.49XA Infection following a procedure, other surgical site, initial encounter (principal); K80.20 Calculus of gallbladder without cholecystitis without obstruction
CPT/HCPCS: 74177; Q9967

== ENCOUNTER → 2024-01-12 10:11 | Outpatient (CLI) | payer OTHER, SELFPAY ==
[2023-01-29 14:53] VITALS: BMI 23.5
[2024-01-12 10:19] LABS: Appearance Urine UA CLEAR; Bilirubin Urine UA NEGATIVE (NEGATIVE); Color Urine UA YELLOW; Glucose Urine UA NEGATIVE (Negative); Ketones Urine UA NEGATIVE (NEGATIVE); Leukocyte Esterase Urine UA NEGATIVE (NEGATIVE); Nitrite Urine UA NEGATIVE (Negative); Occult Blood Urine UA 1+ (Negative); Protein Urine UA NEGATIVE (Negative); Urobilinogen Urine UA 0.2 E.U./dL (0.2); pH Urine UA 5.5 (4.5-8.0)
[2024-01-12 10:31] LABS: Bacteria Urine None Seen; Culture Indicated Urine Cult Not Indicated; RBC Urine 0-1/HPF (0-5/HPF); Squamous Epithelial Cell Urine None Seen (0-5/HPF); Urine Volume 10mL (spun); WBC Urine None Seen (0-5/HPF)
== END ==
PROVIDERS: Family Provider Family Medicine; PCP Family Medicine; Visit Provider Urology
DX: R39.9 Unspecified symptoms and signs involving the genitourinary system (principal)
CPT/HCPCS: 81001

== ENCOUNTER 2024-09-02 15:08 | Emergency (ER) | payer OTHER, SELFPAY ==
[2023-01-29 14:53] VITALS: BMI 23.5
[2024-09-02] VITALS (22 sets, daily range): BP systolic 170–240; BP diastolic 90–153; PULSE 63–84; RESP 12–22; O2SAT 89–100; BMI 25.8
--- NOTE | 2024-09-02 15:10 | DI.CT.S_ITS ---
PROCEDURE: CT STROKE INDICATIONS: Left-sided weakness TECHNIQUE: Noncontrast 4.5 mm thick angled axial sections acquired from the foramen magnum to the vertex, with coronal reformats. For radiation dose reduction, the following was used: automated exposure control, adjustment of mA and/or kV according to patient size. COMPARISON: None. FINDINGS: Image quality: Diagnostic. CSF spaces: Basal cisterns are patent. No extra-axial fluid collections. The ventricles are symmetric in size and shape. Brain: No intracranial bleeds or mass effect. There is cerebral volume loss, with resultant ventricular and sulcal prominence. There are periventricular and deep white matter chronic small vessel ischemic changes. There is intracranial internal carotid artery atherosclerosis. Skull and face: Calvarium and visualized facial bones appear intact, without suspicious lesions. Sinuses: Visualized sinuses and mastoids are clear. IMPRESSION: 1. No acute intracranial process. 2. Moderate atrophy and chronic microvascular ischemic changes. The above findings were discussed with Dr. Adonay Obrien on 09/02/2024 at 3:28 p.m. This study fulfills neurological imaging criteria for inclusion or exclusion of acute stroke therapies based on available published neurological guidelines. Dictated by: Ana Roman M.D. on 09/02/2024 at 15:27 Approved by: Ana Roman M.D. on 09/02/2024 at 15:28
--- NOTE | 2024-09-02 15:10 | DI.CT.S_ITS ---
PROCEDURE: CT ANGIO HEAD AND NECK INDICATIONS: Left-sided weakness TECHNIQUE: After the administration of intravenous contrast, 1 mm thick sections acquired from the aortic arch through the [place] of [place]. 3-dimensional iiduxqx-vawadyaxo-johedueuvs (MIP) and/or volume rendering reformats were acquired of the central intracranial vasculature and neck separately. For radiation dose reduction, the following was used: automated exposure control, adjustment of mA and/or kV according to patient size. COMPARISON: [facility], CT, CT STROKE, 09/02/2024, 15:17. FINDINGS: Image quality: Diagnostic. BRAIN: Please see the separately dictated report from the noncontrast CT of the head performed at the same time. No abnormal intracranial arterial-phase enhancement. HEAD CT ANGIOGRAPHY: Anterior circulation: Intracranial internal carotid arteries are normal in size and flow. The flow within the paired anterior cerebral arteries is normal and symmetric. The flow within the middle cerebral arteries is normal and symmetric. The anterior communicating artery is seen. No aneurysms are seen. Posterior circulation: Visualized portions of the vertebral arteries demonstrate normal caliber, and join to form a normal appearing basilar artery. Flow within the posterior cerebral arteries is normal and symmetric. No aneurysms are seen. NECK CT ANGIOGRAPHY: Carotid system: The great vessels demonstrate a conventional anatomy as they arise from the aortic arch. The origins of the common carotid arteries appear patent. The common carotid arteries demonstrate normal caliber and courses. The bifurcation regions are both widely patent. The internal carotid arteries demonstrate normal calibers and courses. Posterior circulation: The origins of the vertebral arteries both appear widely patent. The more superior extracranial portions of both vertebral arteries also demonstrate normal courses and calibers. They join to form a normal appearing basilar artery. Soft tissues: Visualized neck soft tissues demonstrate no suspicious abnormalities. Left upper lobe thin-walled cyst or bleb. Bones: No suspicious bony lesions. Multilevel degenerative changes in the included spine. IMPRESSION: No significant intracranial arterial abnormality is seen. No significant abnormality is seen within the arteries of the neck. Any quantitative measurements of stenosis were performed using NASCET criteria. Approved by: Dao Julian M.D. on 09/02/2024 at 16:10
[2024-09-02] MEDS: diazePAM 10 MG/2 ML SYRINGE 2 MG IV (15:20)
[2024-09-02 15:28] LABS: Add Manual Diff / Slide Review NO; Basophils Absolute Auto 0 /uL (0-100); Basophils Percent Auto 0.3 % (0-2); Eosinophils Absolute Auto 100 /uL (0-450); Eosinophils Percent Auto 0.5 % (2-4); Hematocrit 44.9 % (41-53); Hemoglobin 15.3 g/dL (13.5-17.5); Lymphocytes Absolute Auto 1100 /uL (1100-4500); Lymphocytes Percent Auto 10.5 % (25-40); Mean Corpuscular HGB Conc 34.1 % (30-36); Mean Corpuscular Hemoglobin 32.2 PG (26-34); Mean Corpuscular Volume 94.6 fL (80-100); Monocytes Absolute Auto 300 /uL (0-900); Monocytes Percent Auto 2.9 % (3-14); Neutrophils Absolute Auto 9000 /uL (1500-7000); Neutrophils Percent Auto 85.8 % (50-75); Platelet Count 163 X10^3/uL (150-400); Red Blood Cell Count 4.74 X10^6/uL (4.5-5.9); Red Cell Distribution Width 12.7 % (11.6-14.8); White Blood Cell Count 10.4 X10^3/uL (4.5-11.0)
[2024-09-02] MEDS: levETIRAcetam 1,000 MG in SODIUM CHLORIDE 0.9% 100 ML 440 MG IV (15:28)
--- NOTE | 2024-09-02 15:35 | EKG_ITS ---
[address] [address] Test Date: 2024-09-02 Pat Name: Sergio Mackay Department: Room: Gender: Male [employer]: : 1945 Requested By: Order Number: [id number] Reading MD: Raúl Knight MD Measurements Intervals [place] Rate: 76 P: 36 DE: 192 QRS: -13 QRSD: 90 T: 28 QT: 392 QTc: 441 Interpretive Statements Sinus rhythm with frequent and consecutive premature ventricular complexes with ventricular escape complexes Electronically Signed On 09-02-2024 17:13:31 PDT by Raúl Knight MD
--- NOTE | 2024-09-02 15:36 | ED.NEUROSD ---
HPI - Neuro Symptoms/Deficit General Chief Complaint: Altered Mental Status Stated Complaint: Stroke Time Seen by Provider: 09/02/24 15:09 History of Present Illness HPI Narrative: Patient brought in by ambulance from home. at bedside. She has history of dementia. He is not a good historian. Blood sugar 123. Patient has right lateral gaze with tremors of the left arm. Patient is answering questions when I talk to him. Denies any headache. He is able to answer slowly. Denies any chest pain. No back pain. No abdominal pain. No prior history of stroke. No prior history of seizure Related Data Home Medications Medication Instructions Recorded Confirmed cholecalciferol (vitamin D3) 25 1,000 unit PO DAILY ##0 10/12/10 07/20/24 mcg (1,000 unit) capsule (Vitamin D3) desonide 0.05 % topical cream 1 applic topical DAILY PRN Eczema 10/24/21 07/20/24 spots simvastatin 80 mg tablet 80 mg PO BEDTIME 12/27/22 01/20/24 acetaminophen 500 mg tablet 1,000 mg PO BEDTIME 01/21/23 07/20/24 losartan 100 mg tablet 100 mg PO BEDTIME 01/21/23 01/20/24 propranolol 10 mg tablet 10 mg PO BID 01/19/24 01/20/24 celecoxib 200 mg capsule 200 mg PO DAILY 07/20/24 07/20/24 escitalopram oxalate 10 mg tablet 10 mg PO DAILY 07/20/24 07/20/24 Previous Rx's Medication Instructions Recorded plecanatide 3 mg tablet (Trulance) 3 mg PO DAILY #90 tabs 07/19/22 Allergies Allergy/AdvReac Type Severity Reaction Status Date / Time No Known Drug Allergies Allergy Verified 07/20/24 10:37 Review of Systems Review of Systems Narrative: GENERAL: Negative chills, fatigue, malaise, fever, sweats. HEENT: Negative sinus pain, ear pain, sore throat RESPIRATORY: Negative dyspnea, cough CARDIOVASCULAR: Negative chest pain, palpitations GASTROINTESTINAL: Negative vomiting, nausea, abdominal pain : Negative dysuria, frequency, hematuria MUSCULOSKELETAL: Negative muscle or bony pain SKIN: Negative rash, skin lesions NEUROLOGIC: Negative positive weakness, negative numbness, positive seizure, negative headache ROS Unobtainable: All systems reviewed & are unremarkable except as noted in HPI and below Patient History Medical History Anxiety Arthritis Hayfever Hyperlipidemia Hypertension Colon polyps Hemorrhoids IBS (irritable bowel syndrome) Cataract Hearing loss Recurrent sinusitis Mumps Measles Chicken pox Prostate cancer (05/30/17) History of inguinal hernia (08/13/16) History of colonic polyps (02/14/15) Surgical History History of hernia repair (05/06/18) Hx of appendectomy (12/28/22) Status post cataract extraction of both eyes with insertion of intraocular lens History of robot-assisted laparoscopic radical prostatectomy (08/12/17) History of prostate biopsy (05/30/17) History of right inguinal hernia repair (09/06/15) History of colonoscopy with polypectomy (09/22/09) History of colonoscopy (12/23/14) Anesthesia Status post eye surgery (~2009) Status post hemorrhoidectomy (1975) History of tonsillectomy (~1949) Family History Father Cancer determined by prostate biopsy Diabetes mellitus High cholesterol Brother No problems noted. Family/Other Stroke Heart attack Family/Other No problems noted. Grandfather No problems noted. Grandmother No problems noted. Mother Ovarian cancer Grandfather Accident Grandmother No problems noted. Sister Multiple sclerosis Social History marital status: number of children: 2 household members: spouse occupational status: previously employed alcohol intake: former substance use type: does not use caffeine: Yes Type(s) of exercise: walking frequency: 3-4 times per week alcohol intake frequency: holidays/special occasions only Exam Narrative Exam Narrative: GENERAL: in no distress, not toxic not dyspneic HEAD: Normocephalic. EYES: Pupils equal round ENT: Mucous membranes moist. NECK: Trachea midline. CARDIOVASCULAR: Regular rate and rhythm RESPIRATORY: Clear to auscultation. Breath sounds equal bilaterally. No wheezes, rales, or rhonchi. GASTROINTESTINAL: Abdomen soft, non-tender EXTREMITIES: No gross deformities. BACK: No flank tenderness. NEURO: Patient is awake alert oriented x2. Does follow instructions. 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 Light touch intact to fingers and foot. However with a lift leg or arm off the bed. Head lateralizes and eyes lateralized to the right. Does have shaking worse to the left upper extremity but not the left lower extremity. SKIN: Warm and dry PSYCH: Not anxious, is cooperative Initial Vital Signs Initial Vital Signs: Vital Signs Pulse Rate 84 09/02/24 15:09 Respiratory Rate 18 09/02/24 15:09 Pulse Oximetry 95 09/02/24 15:09 Oxygen Delivery Method Room Air 09/02/24 15:09 Scores NIH Stroke Scale Level of Conciousness: Alert, keenly responsive Ask month/age: Answers one question correctly, intubated follow commands Open/close eyes, close hand: Performs both tasks correctly Best gaze horizontal: Partial gaze palsy, can be overcome by finger tracking, head turning Visual kahn: No visual loss Facial palsy: Normal symetrical movement Left arm drift: No effort against gravity Right arm drift: No drift for full 10 sec Left leg drift: No effort against gravity Right leg drift: No drift for full 5 sec Limb ataxia: Absent Sensory on face/arms/legs: Normal, no sensory loss Best language: Mild to moderate, slurs some words Dysarthria: Mild to mod,some slurring Extinction or inattention: No abnormality Total NIH Stroke scale score: 10 Course Orders Ordered: Discontinued Medications Diazepam (Diazepam 10 Mg/2 Ml Syringe) 2 mg IV NOW ONE Stop: 09/02/24 15:17 Last Admin: 09/02/24 15:20 Dose: 2 mg Documented By: ZHENG Diazepam (Diazepam 10 Mg/2 Ml Syringe) 3 mg IV NOW ONE Stop: 09/02/24 17:03 Last Admin: 09/02/24 17:10 Dose: 3 mg Documented By: ZHENG Levetiracetam 1,000 mg/ Sodium (Chloride) 110 mls @ 440 mls/hr IV NOW ONE Stop: 09/02/24 15:14 Last Infusion: 09/02/24 15:51 Dose: Infused Documented By: Admin: 09/02/24 15:28 Dose: 440 mls/hr Documented By: SARAH Levetiracetam 3,500 mg/ Sodium (Chloride) 135 mls @ 540 mls/hr IV NOW ONE Stop: 09/02/24 17:03 Last Infusion: 09/02/24 17:40 Dose: Infused Documented By: Admin: 09/02/24 17:20 Dose: 540 mls/hr Documented By: ZHENG Labetalol HCl (Labetalol 20 Mg/4 Ml Syringe) 10 mg IV NOW ONE Stop: 09/02/24 16:10 Last Admin: 09/02/24 16:13 Dose: 10 mg Documented By: ZHENG Labetalol HCl (Labetalol 20 Mg/4 Ml Syringe) 10 mg IV NOW ONE Stop: 09/02/24 16:46 Last Admin: 09/02/24 16:47 Dose: 10 mg Documented By: ZHENG Lorazepam (Lorazepam 2 Mg/Ml Inj) 0.5 mg IV NOW ONE Stop: 09/02/24 15:15 Last Admin: 09/02/24 17:58 Dose: Not Given Documented By: SARAH Vital Signs Vital signs: Vital Signs - 8 hr 09/02/24 15:09 09/02/24 15:22 09/02/24 15:33 Pulse Rate 84 84 84 Respiratory Rate 18 16 18 Blood Pressure 210/140 H 180/120 H Pulse Oximetry 95 89 L 94 Oxygen Delivery Method Room Air Room Air Room Air 09/02/24 15:48 09/02/24 15:53 09/02/24 16:00 Pulse Rate 74 74 Respiratory Rate 12 Blood Pressure 180/106 H Pulse Oximetry 98 Oxygen Delivery Method Room Air 09/02/24 16:00 09/02/24 16:07 09/02/24 16:07 Pulse Rate 79 Respiratory Rate 12 Blood Pressure 240/107 H 223/136 H Pulse Oximetry 100 Oxygen Delivery Method Room Air 09/02/24 16:10 09/02/24 16:10 09/02/24 16:13 Pulse Rate 76 76 Respiratory Rate 12 Blood Pressure 229/102 H 229/106 H Pulse Oximetry 100 Oxygen Delivery Method 09/02/24 16:20 09/02/24 16:20 09/02/24 16:30 Pulse Rate 68 70 Respiratory Rate 13 13 Blood Pressure 212/102 H Pulse Oximetry 98 98 Oxygen Delivery Method 09/02/24 16:31 09/02/24 16:31 09/02/24 16:46 Pulse Rate 69 70 Respiratory Rate 13 Blood Pressure 205/153 H 205/153 H Pulse Oximetry 98 Oxygen Delivery Method 09/02/24 16:47 09/02/24 16:48 09/02/24 16:48 Pulse Rate 70 71 Respiratory Rate Blood Pressure 205/153 H 186/90 H Pulse Oximetry 99 Oxygen Delivery Method 09/02/24 17:26 09/02/24 17:26 09/02/24 17:30 Pulse Rate 63 65 Respiratory Rate 17 20 Blood Pressure 170/144 H Pulse Oximetry 97 99 Oxygen Delivery Method Room Air 09/02/24 17:31 09/02/24 17:31 09/02/24 17:40 Pulse Rate 64 65 Respiratory Rate 20 Blood Pressure 183/101 H 183/100 H Pulse Oximetry 99 Oxygen Delivery Method Room Air 09/02/24 17:40 09/02/24 17:40 09/02/24 17:50 Pulse Rate 67 68 Respiratory Rate 21 15 Blood Pressure 191/102 H Pulse Oximetry 99 99 Oxygen Delivery Method 09/02/24 17:50 09/02/24 18:00 09/02/24 18:00 Pulse Rate 68 Respiratory Rate 13 Blood Pressure 200/98 H 196/104 H Pulse Oximetry 99 Oxygen Delivery Method MDM - Neuro Symptoms/Deficit Lab Data 09/02/24 15:00 09/02/24 15:00 Labs: Lab Results 09/02/24 Range/Units 15:00 WBC 10.4 (4.5-11.0) X10^3/uL RBC 4.74 (4.5-5.9) X10^6/uL Hgb 15.3 (13.5-17.5) g/dL Hct 44.9 (41-53) % MCV 94.6 (80-100) fL MCH 32.2 (26-34) PG MCHC 34.1 (30-36) % RDW 12.7 (11.6-14.8) % Plt Count 163 (150-400) X10^3/uL Neut % (Auto) 85.8 H (50-75) % Lymph % (Auto) 10.5 L (25-40) % [place] % (Auto) 2.9 L (3-14) % Eos % (Auto) 0.5 L (2-4) % Baso % (Auto) 0.3 (0-2) % Neut # (Auto) 9000 H (7445-0212) /uL Lymph # (Auto) 1100 (4235-7959) /uL [place] # (Auto) 300 (0-900) /uL Eos # (Auto) 100 (0-450) /uL Baso # (Auto) 0 (0-100) /uL PT 10.4 (9.4-12.5) SECONDS INR 0.9 (0.9-1.3) APTT 37 H (25.1-36.5) SECONDS Sodium 137 (137-145) mmol/L Potassium 4.9 (3.4-5.1) mmol/L Chloride 101 (98-107) mmol/L Carbon Dioxide 26 (22-32) mmol/L BUN 19 (9-20) mg/dL Creatinine 0.74 (0.66-1.25) mg/dL Estimated GFR > 60 (>60) mL/min BUN/Creatinine Ratio 25.7 H (6-22) Glucose 137 H (70-99) mg/dL Calcium 9.3 (8.4-10.2) mg/dL Total Bilirubin 0.8 (0.2-1.3) mg/dL AST 159 H (17-59) IU/L ALT 80 H (<50) IU/L Alkaline Phosphatase 100 (38-126) U/L Total Creatine Kinase 62 (55-170) U/L Troponin I < 0.012 (0.01-0.034) ng/mL Total Protein 7.9 (6.3-8.2) g/dL Albumin 5.0 (3.5-5.0) g/dL Globulin 2.9 (1.7-4.1) g/dL Albumin/Globulin Ratio 1.7 (1.0-2.8) Ethyl Alcohol < 10 ( - 10) mg/dL Point of Care Testing Glucose POC [address] scan - head: Radiologist's Impression: [address] [address] [address] Scan Report Signed Patient: Sergio Mackay MR#: [id number] : 1945 Acct:[id number] Age/Sex: 79 / M Date of Service: 09/02/24 Loc: ED Accession Number: [id number] Procedure: CT Stroke Ordering Provider: Adonay Obrien MD PROCEDURE: CT STROKE INDICATIONS: Left-sided weakness TECHNIQUE: Noncontrast 4.5 mm thick angled axial sections acquired from the foramen magnum to the vertex, with coronal reformats. For radiation dose reduction, the following was used: automated exposure control, adjustment of mA and/or kV according to patient size. COMPARISON: None. FINDINGS: Image quality: Diagnostic. CSF spaces: Basal cisterns are patent. No extra-axial fluid collections. The ventricles are symmetric in size and shape. Brain: No intracranial bleeds or mass effect. There is cerebral volume loss, with resultant ventricular and sulcal prominence. There are periventricular and deep white matter chronic small vessel ischemic changes. There is intracranial internal carotid artery atherosclerosis. Skull and face: Calvarium and visualized facial bones appear intact, without suspicious lesions. Sinuses: Visualized sinuses and mastoids are clear. IMPRESSION: 1. No acute intracranial process. 2. Moderate atrophy and chronic microvascular ischemic changes. The above findings were discussed with Dr. Adonay Obrien on 09/02/2024 at 3:28 p.m. This study fulfills neurological imaging criteria for inclusion or exclusion of acute stroke therapies based on available published neurological guidelines. Dictated by: Ana Roman M.D. on 09/02/2024 at 15:27 Approved by: Ana Roman M.D. on 09/02/2024 at 15:28 CTA - brain/neck: Radiologist's Impression: [place] [address] CT Scan Report Signed Patient: Sergio Mackay MR#: [id number] : 1945 Acct:[id number] Age/Sex: 79 / M Date of Service: 09/02/24 Loc: ED Accession Number: [id number] Procedure: CT angio head and neck Ordering Provider: Adonay Obrien MD PROCEDURE: CT ANGIO HEAD AND NECK INDICATIONS: Left-sided weakness TECHNIQUE: After the administration of intravenous contrast, 1 mm thick sections acquired from the aortic arch through the [place] of [place]. 3-dimensional nclelum-mzcdioxdh-pajlnttynv (MIP) and/or volume rendering reformats were acquired of the central intracranial vasculature and neck separately. For radiation dose reduction, the following was used: automated exposure control, adjustment of mA and/or kV according to patient size. COMPARISON: [facility], CT, CT STROKE, 09/02/2024, 15:17. FINDINGS: Image quality: Diagnostic. BRAIN: Please see the separately dictated report from the noncontrast CT of the head performed at the same time. No abnormal intracranial arterial-phase enhancement. HEAD CT ANGIOGRAPHY: Anterior circulation: Intracranial internal carotid arteries are normal in size and flow. The flow within the paired anterior cerebral arteries is normal and symmetric. The flow within the middle cerebral arteries is normal and symmetric. The anterior communicating artery is seen. No aneurysms are seen. Posterior circulation: Visualized portions of the vertebral arteries demonstrate normal caliber, and join to form a normal appearing basilar artery. Flow within the posterior cerebral arteries is normal and symmetric. No aneurysms are seen. NECK CT ANGIOGRAPHY: Carotid system: The great vessels demonstrate a conventional anatomy as they arise from the aortic arch. The origins of the common carotid arteries appear patent. The common carotid arteries demonstrate normal caliber and courses. The bifurcation regions are both widely patent. The internal carotid arteries demonstrate normal calibers and courses. Posterior circulation: The origins of the vertebral arteries both appear widely patent. The more superior extracranial portions of both vertebral arteries also demonstrate normal courses and calibers. They join to form a normal appearing basilar artery. Soft tissues: Visualized neck soft tissues demonstrate no suspicious abnormalities. Left upper lobe thin-walled cyst or bleb. Bones: No suspicious bony lesions. Multilevel degenerative changes in the included spine. IMPRESSION: No significant intracranial arterial abnormality is seen. No significant abnormality is seen within the arteries of the neck. Any quantitative measurements of stenosis were performed using NASCET criteria. Approved by: Dao Julian M.D. on 09/02/2024 at 16:10 MRI brain: Radiologist's Impression: [place] [address] Magnetic Resonance Report Signed Patient: Sergio Mackay MR#: [id number] : 1945 Acct:[id number] Age/Sex: 79 / M Date of Service: 09/02/24 Loc: ED Accession Number: [id number] Procedure: MR head/brain wo con Ordering Provider: Adonay Obrien MD PROCEDURE: MR HEAD/BRAIN WO CON INDICATIONS: Left-sided weakness TECHNIQUE: Non-contrast axial T1 spin echo, axial T2 fast spin echo, sagittal and axial FLAIR, coronal T2 fast spin echo, axial gradient echo, axial diffusion and ADC through the brain. COMPARISON: None. FINDINGS: Image quality: Motion degraded. CSF spaces: Ventricles appear symmetric in size and shape. Basal cisterns are patent. No extra-axial fluid collections. Brain: No intracranial bleeds or mass effects. There is cerebral volume loss for age. There are periventricular and deep white matter chronic small vessel ischemic changes. Brainstem appears normal. Diffusion-weighted images show no acute infarct. No chronic ischemic insults. Normal intravascular flow voids are present. Skull and face: Calvarial bone marrow is normal in signal. Bilateral lens replacements. Otherwise, the orbits are unremarkable. Sinuses: Sinuses and mastoids are clear. IMPRESSION: No acute or subacute infarct. No acute intracranial abnormalities. Mild age-related global volume loss and chronic microvascular ischemic changes. Dictated by: Los Linares M.D. on 09/02/2024 at 17:30 Approved by: Los Linares M.D. on 09/02/2024 at 17:32 Chest x-ray: Radiologist's Impression: [address] [address] XRay Report Signed Patient: Sergio Mackay MR#: [id number] : 1945 Acct:[id number] Age/Sex: 79 / M Date of Service: 09/02/24 Loc: ED Accession Number: [id number] Procedure: XR chest 1V Ordering Provider: Adonay Obrien MD PROCEDURE: XR CHEST 1V INDICATIONS: stroke work up TECHNIQUE: One view of the chest was acquired. COMPARISON: [facility], , XR CHEST 1V, 10/15/2022, 18:00. FINDINGS: Surgical changes and devices: None. Lungs and pleura: Lungs are clear. No pleural effusions or pneumothorax. Mediastinum: Mediastinal contours appear normal. Heart size is normal. Bones and chest wall: No suspicious bony lesions. Overlying soft tissues appear unremarkable. IMPRESSION: No acute cardiopulmonary abnormality is seen. Dictated by: Los Linares M.D. on 09/02/2024 at 17:23 Approved by: Los Linares M.D. on 09/02/2024 at 17:28 [facility] Narrative Medical decision making narrative: Patient brought in by ambulance from home. at bedside. She has history of dementia. He is not a good historian. Blood sugar 123. Patient has right lateral gaze with tremors of the left arm. Patient is answering questions when I talk to him. Denies any headache. He is able to answer slowly. Denies any chest pain. No back pain. No abdominal pain. No prior history of stroke. No prior history of seizure After history and exam, CT head CT angio head and neck EKG CBC CMP urinalysis alcohol MDM Medical records reviewed: No recent visit for this complaint Differential considered: Includes but not limited to stroke TIA seizure Lab Test results independently reviewed as above. Pertinent findings: WBC 10.4 hemoglobin 15.3 troponin less than 0.012 alcohol negative Independently reviewed EKG sinus rhythm rate [address] elevation or depression Imaging studies independently reviewed: CT head no acute findings spoke with radiologist at 3:[address] angiogram head and neck no acute finding chest x-ray no acute finding Consultations: 4:32 p.m. s/w neurology, dr carvajal, try to get mri now, unfortunately has dementia. It was just a 2 of them at home. So we are not 100% that it was 2 p.m. last well known. At this time would not give TNK/tPA 5:[address] carvajal, patient is in MRI now. He would like 3.5 g more of Keppra. He would like to mg of Valium. He would hold on any further blood pressure medications until MRI results. 5:30 p.m.. Spoke with Neurology dr carvajal, he has reviewed the MRI. No stroke. No TNK at this time. However patient needs to be transferred right now by [facility] to their ER as patient is likely having status epilepticus. But no intubation it required at this time. Airway intact. We do not have Neurology or EEG capability and local hospitalist our capacity due to a local nursing strike at a local hospital. Re-evaluations: 3:40 p.m.. Patient is still having tremors of the left arm and lateral right graze. 2 mg Valium given. We are out of Ativan. Seizure pads in place. 5:31 p.m.. I spoke with , there is a [id number] at bedside and reviewed with them diagnosis of seizure and needs immediate transfer by flight as requested by [facility] Neurology. 4:15 p.m.. Patient is still having waxing waning lucidity. At times will follow up commands. Does move fingers on command and toes. But does not have full movement of upper and lower extremities on the left side. Discussion: Appropriate for transfer for high level care. We do not have neurology services here. Diagnosis: New onset seizure Critical Care Time Critical Care Time Attestation: Critical Care Time 35 minutes: Critical care time is separate from other billable procedures. This critical care time includes consultation with family and other consulting doctors, review of records, and interpretation of data from labs, EKGs, imaging, etc. Discharge Plan Departure Patient Disposition: [facility] Clinical Impression: New onset seizure Prescriptions: No Action cholecalciferol (vitamin D3) [Vitamin D3] 1,000 unit Capsule 1,000 unit PO DAILY Qty: 0 Trulance 3 mg tablet 3 mg PO DAILY Qty: 90 1RF desonide 0.05 % cream 1 applic topical DAILY PRN (Reason: Eczema spots) simvastatin 80 mg tablet 80 mg PO BEDTIME acetaminophen 500 mg Tablet 1,000 mg PO BEDTIME losartan 100 mg tablet 100 mg PO BEDTIME Rx Instructions: PATIENT DUE FOR ANNUAL VISIT W/PCP. PLEASE CALL TO SCHEDULE. THANK YOU 06/13/22. propranolol 10 mg tablet 10 mg PO BID celecoxib 200 mg capsule 200 mg PO DAILY escitalopram oxalate 10 mg tablet 10 mg PO DAILY Referrals: Aston Painter MD [Primary Care Provider] -
[2024-09-02 15:45] LABS: INR 0.9 (0.9-1.3); Prothrombin Time 10.4 SECONDS (9.4-12.5)
[2024-09-02 15:47] LABS: Creatine Kinase 62 U/L (55-170); PTT Partial Thromboplastin Tim 37 SECONDS (25.1-36.5)
[2024-09-02 16:00] LABS: Troponin I < 0.012 ng/mL (0.01-0.034)
[2024-09-02] MEDS: LABETALOL 20 MG/4 ML SYRINGE 10 MG IV ×2 (16:13→16:47)
--- NOTE | 2024-09-02 16:31 | DI.MRI.S_ITS ---
PROCEDURE: MR HEAD/BRAIN WO CON INDICATIONS: Left-sided weakness TECHNIQUE: Non-contrast axial T1 spin echo, axial T2 fast spin echo, sagittal and axial FLAIR, coronal T2 fast spin echo, axial gradient echo, axial diffusion and ADC through the brain. COMPARISON: None. FINDINGS: Image quality: Motion degraded. CSF spaces: Ventricles appear symmetric in size and shape. Basal cisterns are patent. No extra-axial fluid collections. Brain: No intracranial bleeds or mass effects. There is cerebral volume loss for age. There are periventricular and deep white matter chronic small vessel ischemic changes. Brainstem appears normal. Diffusion-weighted images show no acute infarct. No chronic ischemic insults. Normal intravascular flow voids are present. Skull and face: Calvarial bone marrow is normal in signal. Bilateral lens replacements. Otherwise, the orbits are unremarkable. Sinuses: Sinuses and mastoids are clear. IMPRESSION: No acute or subacute infarct. No acute intracranial abnormalities. Mild age-related global volume loss and chronic microvascular ischemic changes. Dictated by: Los Linares M.D. on 09/02/2024 at 17:30 Approved by: Los Linares M.D. on 09/02/2024 at 17:32
--- NOTE | 2024-09-02 16:32 | DI.RAD.S_ITS ---
PROCEDURE: XR CHEST 1V INDICATIONS: stroke work up TECHNIQUE: One view of the chest was acquired. COMPARISON: [facility], CR, XR CHEST 1V, 10/15/2022, 18:00. FINDINGS: Surgical changes and devices: None. Lungs and pleura: Lungs are clear. No pleural effusions or pneumothorax. Mediastinum: Mediastinal contours appear normal. Heart size is normal. Bones and chest wall: No suspicious bony lesions. Overlying soft tissues appear unremarkable. IMPRESSION: No acute cardiopulmonary abnormality is seen. Dictated by: Los Linares M.D. on 09/02/2024 at 17:23 Approved by: Los Linares M.D. on 09/02/2024 at 17:28
[2024-09-02 16:41] LABS: Alanine Aminotransferase 80 IU/L (<50); Albumin Globulin Ratio 1.7 (1.0-2.8); Alkaline Phosphatase 100 U/L (38-126); Aspartate Aminotransferase 159 IU/L (17-59); BUN Creatinine Ratio 25.7 (6-22); Bilirubin Total 0.8 mg/dL (0.2-1.3); Blood Urea Nitrogen 19 mg/dL (9-20); Calcium 9.3 mg/dL (8.4-10.2); Carbon Dioxide 26 mmol/L (22-32); Chloride 101 mmol/L (98-107); Estimated Glomerular Filt Rate > 60 mL/min (>60); Ethanol (ETOH) < 10 mg/dL; Globulin 2.9 g/dL (1.7-4.1); Glucose 137 mg/dL (70-99); HEMOLYSIS < 15 (0-50); Potassium 4.9 mmol/L (3.4-5.1); Sodium 137 mmol/L (137-145); Total Protein 7.9 g/dL (6.3-8.2)
[2024-09-02] MEDS: diazePAM 10 MG/2 ML SYRINGE 3 MG IV (17:10)
[2024-09-02] MEDS: SODIUM CHLORIDE 0.9% IV (17:20)
[2024-09-02] MEDS: LEVETIRACETAM IV (17:20)
== END 2024-09-02 18:25 | disposition short-term general hospital (02) ==
PROVIDERS: Emergency Provider Emergency Medicine; Family Provider Family Medicine; PCP Family Medicine
DX: R56.9 Unspecified convulsions (principal); R25.1 Tremor, unspecified; R29.710 NIHSS score 10
CPT/HCPCS: 36415; 70450; 70496; 70498; 70551; 71045; 80053; 80320; 82550; 82962; 84484; 85025; 85610; 85730; 93005; 96365; 96366; 96375; 96376; 99284; 99291; J1953; J3360; Q9967